=== PATIENT | male | born 1975 | race Two or more races ===

== ENCOUNTER 2020-06-18 15:33 | Outpatient (REF) | payer MEDICAID, SELFPAY ==
--- NOTE | 2020-06-18 15:53 | XR_ITS ---
EXAMINATION: XR SHOULDER, LEFT CLINICAL INFORMATION: Left shoulder pain COMPARISON: None TECHNIQUE: AP external rotation, Grashey, scapular Y, and axillary views of the left shoulder. FINDINGS: The bones and soft tissues are normal. No fracture. Glenohumeral and acromioclavicular alignment is anatomic with normal joint space. No abnormal soft tissue calcifications. XR/XR shoulder LT min 2V IMPRESSION: Normal left shoulder.
== END 2020-06-18 15:34 | disposition home or self-care (01) ==
LOC: HO.XRAY 15:33
PROVIDERS: PCP General Practice; Visit Provider Emergency Medicine
DX: M25.512 Pain in left shoulder (principal)
CPT/HCPCS: 73030

== ENCOUNTER → 2020-07-12 09:39 | Outpatient (BNVA) | payer MEDICAID, SELFPAY | PROVIDERS: PCP General Practice; Visit Provider Orthopaedic Surgery | DX: M75.42 Impingement syndrome of left shoulder (principal) | CPT/HCPCS: 99202 ==

== ENCOUNTER → 2020-08-09 10:40 | Outpatient (BNVA) | payer MEDICAID, SELFPAY | PROVIDERS: Visit Provider Orthopaedic Surgery | DX: M75.42 Impingement syndrome of left shoulder (principal) | CPT/HCPCS: 99212; J1040 ==

== ENCOUNTER 2020-08-15 14:00 | Outpatient (RCR) | payer MEDICAID, SELFPAY ==
--- NOTE | 2020-07-17 15:45 | MHC.PT.EP ---
[facility] [place] Office [place] Office [place] Office [address] Noemi Chavira [address] [facility] [phone] F: [phone] F: [phone] F: [phone] F: [phone] Physical Therapy Plan of Care Date of Evaluation: 07/17/20 Date of Surgery: Diagnosis: left shoulder pain Assessment: The patient arrived reporting left shoulder pain. He had pain with AROM, and pain with resistance. He did not seem to have any cervical etiology. Pt appears to have some secondary impingement in the GH joint. 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 Pt will need posterior and inferior cuff strengthening to improve GH tracking and proprioception. Frequency and Duration: The patient will be seen 2x/week x 4 weeks Short Term Goals: 2 weeks 1.Pt to able to demonstrate proper sitting posture with the use of a lumbar roll to decrease aggravating factors. 2.Pt to be able to demonstrate proper posture for common leisure activities such as crocheting and phone/tablet use. 3.For the patient to demonstrate proper upright sitting posture with use of the lumbar roll to improve compliance and carryover. 4 weeks - The patient to have greater than 160 degrees of flexion and abduction to show improved functional ROM. 4 weeks ? The patient to have 5/5 strength with flexion and abduction to demonstrate functional strength 4 weeks ? The patient to be able to return to all functional reaching, self care ADL's without any limitation from pain or loss of ROM. [employer] [address] [address] Goals: 4 weeks - The patient to have greater than 160 degrees of flexion and abduction to show improved functional ROM. 4 weeks ? The patient to have 5/5 strength with flexion and abduction to demonstrate functional strength 4 weeks ? The patient to be able to return to all functional reaching, self care ADL's without any limitation from pain or loss of ROM. Treatment Plan: Modalities to reduce pain, spasms and effusion. Manual therapy to restore motion and function. Therapeutic exercise to improve strength and flexibility. Neuromuscular re-education for posture and balance. Therapeutic activities to return to functional activities of daily living. Electronically signed by: Annmarie Harrell PT DPT Please sign and return to therapist. Thank you for your referral.
== END 2020-08-19 08:00 | disposition home or self-care (01) ==
LOC: HO.PT 14:00
PROVIDERS: PCP General Practice; Visit Provider Emergency Medicine
DX: M25.512 Pain in left shoulder (principal)
CPT/HCPCS: 97033; 97110; 97112; 97162; 97530

== ENCOUNTER 2021-08-13 12:28 | Day surgery (SDC) | payer MEDICAID, SELFPAY ==
[2021-08-13 12:34] VITALS: BMI 28.7
[2021-08-13 12:52] VITALS: BP 122/75; PULSE 68; RESP 17; TEMP 36.8; O2SAT 96
--- NOTE | 2021-08-13 13:29 | HO.ANESPROP2 ---
HPI - Anesthesia Eval Consult details Narrative: 46 yo male patient for Colonoscopy PMFSH Active Problems Active Problems: All Active Problems (Updated 08/12/21 @ 09:09 by Edna Foster) Rotator cuff impingement syndrome of left shoulder (Acute) Past Medical History Medical History Onychomycosis Family History Family history of problems with anesthesia: No Surgical History Surgical History No pertinent past surgical history History of Problems with Anesthesia: No Social History Social History Patient Tobacco Use Status: Never used Tobacco Are you DNR?: No Advance Directives: No Advance Directives Information Provided: Yes Current occupational status: employed 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, 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 Allergies Allergy/AdvReac Type Severity Reaction Status Date / Time aspirin AdvReac eye Verified 08/09/20 10:47 swelling, and face swelling Home Medications Medication Instructions Recorded Confirmed Last Taken Type acetaminophen 325 mg capsule 325 mg PO QID PRN 07/12/20 Unknown History naproxen 500 mg tablet 500 mg PO BID 07/12/20 Unknown History Exam Exam Date and Time: August 13, 2021 1329 Height,Weight and Vital Signs: Height 5 ft 6 in Weight 80.739 kg Last Vital Signs Temp 98.3 F 08/13/21 12:52 Pulse 68 08/13/21 12:52 Resp 17 08/13/21 12:52 BP 122/75 08/13/21 12:52 Pulse Ox 96 08/13/21 12:52 Airway Mallampati Class: III TM Dist: >3cm Neck ROM: Full Loose/Missing/Broken Teeth: No Heart: RRR Lungs: CTAB Assessment and Plan Assessment Anesthesia Assessment: Anesthesia Plan Discussed and Chart Reviewed Final Anesthetic Review Family History of Problems with Anesthesia: No History of Problems with Anesthesia: No NPO: Yes ASA Class: I Final Preanesthetic Review: No Changes in Pt Med Stat, Meds/Allgs Chart Reviewed, Consent Obtained/Reviewed and Anes Risks/Benef Reviewed Patient Risk: Low Procedure Risk: Low Assessment/Block/Sedation in SS: Assess/Block/Sedation-SS Anesthetic Plan Anesthetic Plan: MAC: Disposition: Standard PACU
[2021-08-13] MEDS: Lactated Ringers 1,000 ML 100 ML IVCONT (14:15)
--- NOTE | 2021-08-13 14:18 | MHC.SHP ---
Pre-Procedural Eval Section A Date of Service: 08/13/21 The patient is an INPATIENT: No Changes since office visit: No Cold of Flu in the past 2 weeks, No New Medical Problems, No Changes in Medication and No Patient answered all questions The History & Physical has been completed within 30 days and I have reviewed it.: Yes Section B Chief Complaint: FHX of colon cancer, screening Allergies: Allergies Allergy/AdvReac Type Severity Reaction Status Date / Time aspirin AdvReac eye Verified 08/09/20 10:47 swelling, and face swelling Plan I have reviewed the history and physical and performed a pertinent physical examination on my patient. No changes have occurred unless specified.
--- NOTE | 2021-08-13 14:52 | PM.OP ---
Brief Operative Note Date of Service: 08/13/21 Pre-op diagnosis: screeening Post-op diagnosis: same Procedure: colonoscopy Surgeon: Henok Monte Anesthesia: MAC Was an Soil Checker used for this Procedure?: No Estimated blood loss (mL): 0 Pathology: none sent Condition: stable Disposition: PACU
[2021-08-13 14:58] VITALS: BP 93/49; PULSE 75; RESP 16; TEMP 36.3; O2SAT 97
[2021-08-13 15:13] VITALS: BP 108/61; PULSE 60; RESP 18; TEMP 36.3; O2SAT 100
--- NOTE | 2021-08-13 16:16 | OP_ITS ---
SURGEON: Henok Monte MD INDICATIONS: Colon cancer screening and family history of colon cancer. PREOPERATIVE DIAGNOSIS: POSTOPERATIVE DIAGNOSIS: PROCEDURE PERFORMED: Colonoscopy to terminal ileum. ESTIMATED BLOOD LOSS: COMPLICATIONS: ANESTHESIA: ASSISTANTS: SPECIMENS: MEDICATIONS: Monitored anesthesia care. DESCRIPTION OF PROCEDURE: History and physical were performed. The risks and benefits of the procedure were explained to the patient. Informed consent was obtained. The patient was placed in the left lateral decubitus position. A digital rectal exam was performed and was found to be normal. The Olympus pediatric video colonoscope was introduced into the rectum and advanced to the cecum without difficulty. The cecum was identified by transillumination, palpation, and identification of ileocecal valve. Examination was performed. The scope was removed. He tolerated the procedure well and was transferred to recovery area in stable condition. FINDINGS: The terminal ileum was examined and appeared normal. The visualized colonic mucosa was within normal limits without evidence of masses or ulcers. No polyps were identified. The quality of the prep was good. Retroflexed examination showed small internal hemorrhoids. There was moderate sigmoid diverticulosis. IMPRESSION: Normal colonoscopy. RECOMMENDATION: 1. Follow up as needed. 2. Repeat colonoscopy is recommended in 5 years because of family history. MD GALI Jin/BHARAT / [id number]
== END 2021-08-13 16:04 | disposition home or self-care (01) ==
PROVIDERS: Visit Provider Internal Medicine Gastroenterology
PROC: 0DJD8ZZ Inspection of Lower Intestinal Tract, Via Natural or Artificial Opening Endoscopic (ICD-10-PCS; CPT 45378; principal; 2021-08-13 13:50)
DX: Z12.11 Encounter for screening for malignant neoplasm of colon (principal); Z80.0 Family history of malignant neoplasm of digestive organs; K57.30 Diverticulosis of large intestine without perforation or abscess without bleeding; K64.8 Other hemorrhoids; B35.1 Tinea unguium; Z79.1 Long term (current) use of non-steroidal anti-inflammatories (NSAID)
CPT/HCPCS: 45378

== ENCOUNTER 2021-10-02 10:06 | Outpatient (REF) | payer MEDICAID, SELFPAY ==
--- NOTE | 2021-10-02 10:10 | EMG_ITS ---
Left median and ulnar motor and sensory studies were performed. Left radial sensory study was performed and paraspinal muscles were tested with a needle. IMPRESSION: Mild to moderate left median neuropathy across carpal tunnel. MD CAMERON Bhatia/BHARAT / [id number]
== END 2021-10-02 10:07 | disposition home or self-care (01) ==
LOC: HO.NEURO 10:06
PROVIDERS: PCP General Practice; Visit Provider General Practice
DX: G56.12 Other lesions of median nerve, left upper limb (principal)
CPT/HCPCS: 95886; 95909

== ENCOUNTER 2021-10-14 14:20 | Outpatient (REF) | payer MEDICAID, SELFPAY ==
[2021-10-14 15:01] LABS: COVID-19 Test Positive (Negative)
== END 2021-10-14 14:21 | disposition home or self-care (01) ==
LOC: HO.LAB 14:20
PROVIDERS: Visit Provider Internal Medicine
DX: Z20.822 Contact with and (suspected) exposure to COVID-19 (principal)
CPT/HCPCS: 87635; C9803

== ENCOUNTER 2022-02-21 07:25 | Emergency (ER) | payer MEDICAID, SELFPAY ==
--- NOTE | ~2022-02-21 | XR_ITS ---
EXAMINATION: CR FINGER, LEFT CLINICAL INFORMATION: Hit left thumb with hammer. COMPARISON: None TECHNIQUE: Frontal view of the left hand and coned-down lateral and frontal views of the left first digit. FINDINGS: Diffuse soft tissue swelling of the left thumb is seen, most prominent along the distal phalanx. There is a small well-corticated bone fragment along the palmar surface of the first interphalangeal joint, possibly related to old avulsion injury versus small accessory ossicle. No acute fracture or dislocation. No radiopaque foreign body in the soft tissues. Bony structures otherwise unremarkable. XR/XR finger LT min 2V IMPRESSION: 1. Extensive soft tissue swelling over the first digit. 2. No acute fracture.
[2022-02-21 08:05] VITALS: BP 130/77; PULSE 60; RESP 16; TEMP 36; O2SAT 100; BMI 25.8
--- NOTE | 2022-02-21 09:37 | ED.EXTPRO ---
HPI - Extremity Problem General Chief complaint: Extremity Problem Stated complaint: l thumb inj Time Seen by Provider: 02/21/22 09:26 Source: patient Mode of arrival: ambulatory Limitations: no limitations History of Present Illness HPI Narrative: Patient presents emergency department for evaluation of left thumb pain. He states yesterday while working he struck his left thumb with a hammer. Has bruising beneath the nail bed. Fingers painful with movement. Denies any numbness or tingling. Related Data Home Medications Medication Instructions Recorded Confirmed acetaminophen 325 mg capsule 325 mg PO QID PRN 07/12/20 naproxen 500 mg tablet 500 mg PO BID 07/12/20 Previous Rx's Medication Instructions Recorded naproxen 500 mg tablet (Naprosyn) 500 mg PO BID #60 tabs 07/12/20 Allergies Allergy/AdvReac Type Severity Reaction Status Date / Time aspirin AdvReac eye Verified 08/09/20 10:47 swelling, and face swelling Review of Systems Review of Systems: Musculoskeletal: positive finger pain Yes all other systems are reviewed and are negative PMFSH Past Medical History Attestation statement: The following information was validated with the patient. 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 No acute distress.?Normal affect.? Neck: Normal inspection.? Neck supple.?? CVS: Heart sounds normal. Normal heart rate and rhythm.? Pulses normal.?? Respiratory: No respiratory distress.? Lung sounds clear to auscultation bilaterally?? Abdomen: Soft and non-tender. Skin: Skin warm and dry.? Normal skin color.? Extremities: No lower extremity edema.? left thumb with localized swelling to the distal tip, decreased flexion, nail bed intact Neuro: Moves all extremities spontaneously. Sensation intact bilaterally. no motor deficits Ambulates with normal steady gait. Course Course Course Narrative: patient is a 46-year-old male presents emergency for evaluation of crush injury. XR reveals soft tissue swelling, no acute fracture. physical exam notable for decreased flexion, to approximately 40 degrees less likely to tendon injury. There is localized swelling. discussed findings with patient. Replace and finger splint. Advised rest, ice for 10-15 minutes 3-4 times daily, acetaminophen/ ibuprofen as needed for pain. Follow-up with primary care provider as needed. Reviewed worsening signs and symptoms to return back to emergency department for. All questions were answered to patient was discharged home in stable condition. MDM - Extremity (Nontraumatic) Medical Records Attestation: I reviewed the patient's medical records. Imaging Data XR hand: Radiologist's impression: XR/XR finger LT min 2V IMPRESSION: ? 1. Extensive soft tissue swelling over the first digit. 2. No acute fracture. Discharge Plan Discharge Clinical Impression: Contusion of finger of left hand Patient Disposition: Home, Self-Care Instructions: Contusion in Adults (ED) Additional Instructions: You can take ibuprofen 200 mg, 3 tablets (600mg) every 6-8 hours as needed for pain, in addition to Tylenol 500 mg, 2 tablets (1,000mg) every 4-6 hours as needed for pain, but not to exceed 3 doses daily (3,000mg).? Return to the emergency department any new or worsening symptoms or concerns. Prescriptions: No Action naproxen [Naprosyn] 500 mg tablet 500 mg PO BID Qty: 60 2RF Interventions: ED Discharge Assessment Last Done: 02/21/22 10:10 Discharge Date/Time: 02/21/22 10:11
[2022-02-21] MEDS: NaPROXEN 500 MG TABLET PO (10:03)
== END 2022-02-21 10:11 | disposition home or self-care (01) ==
PROVIDERS: Emergency Provider Internal Medicine; PCP General Practice
DX: S60.012A Contusion of left thumb without damage to nail, initial encounter (principal); W22.8XXA Striking against or struck by other objects, initial encounter; Y93.89 Activity, other specified; Y92.9 Unspecified place or not applicable; Y99.0 Civilian activity done for income or pay
CPT/HCPCS: 29130; 73140; 99283

== ENCOUNTER → 2022-04-02 13:38 | Outpatient (BNVA) | payer MEDICAID, SELFPAY | PROVIDERS: PCP General Practice; Visit Provider Urology | DX: Q55.69 Other congenital malformation of penis (principal) | CPT/HCPCS: 99202 ==

== ENCOUNTER → 2022-05-05 12:55 | Outpatient (BNVA) | payer MEDICAID, SELFPAY | PROVIDERS: PCP General Practice; Visit Provider Orthopaedic Surgery | DX: Z01.818 Encounter for other preprocedural examination (principal); G56.02 Carpal tunnel syndrome, left upper limb | CPT/HCPCS: 99202 ==

== ENCOUNTER 2022-05-18 06:03 | Day surgery (SDC) | payer MEDICAID, SELFPAY ==
[2022-05-12 10:58] VITALS: BMI 26.6
--- NOTE | 2022-05-15 10:35 | HO.ANESPROP2 ---
Documented by User: Sultana Rushing NP 05/15/22 10:37 HPI - Anesthesia Eval Consult details Narrative: 46yo M for Penile Frenuloplasty s/p colo 08/2021 with TIVA PMFSH Active Problems Active Problems: All Active Problems (Updated 05/12/22 @ 10:54 by Renetta Cuellar RN) Rotator cuff impingement syndrome of left shoulder (Acute) Short frenulum of penis (Acute) Carpal tunnel syndrome of left wrist (Acute) Past Medical History Medical History COVID-19 vaccine series completed History of COVID-19 Onychomycosis Family History Family history of problems with anesthesia: No Surgical History Surgical History H/O colonoscopy History of Problems with Anesthesia: No Social History Social History Patient Tobacco Use Status: Never used Tobacco Are you DNR?: No Advance Directives: No Advance Directives Information Provided: Yes (brochure mailed) Advance Directives on File: No Current occupational status: employed 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, 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 Allergies Allergy/AdvReac Type Severity Reaction Status Date / Time aspirin AdvReac eye Verified 05/18/22 06:14 swelling, and face swelling Home Medications Medication Instructions Recorded Confirmed Last Taken Type acetaminophen 325 mg capsule 325 mg PO QID PRN Pain 07/12/20 05/12/22 Unknown History vitamin B complex (Vitamins B 1 tab PO DAILY 05/05/22 05/12/22 Unknown History Complex tablet) Exam Exam Date and Time: May 15, 2022 1035 Height,Weight and Vital Signs: Height 5 ft 6 in Weight 74.843 kg Assessment and Plan Assessment Anesthesia Assessment: Chart Reviewed Final Anesthetic Review Family History of Problems with Anesthesia: No History of Problems with Anesthesia: No Documented by User: Lesvia Salinas MD 05/18/22 07:46 PMFSH Past Medical History Medical History COVID-19 vaccine series completed History of COVID-19 Onychomycosis Surgical History Surgical History H/O colonoscopy Social History Social History Patient Tobacco Use Status: Never used Tobacco Are you DNR?: No Advance Directives: No Advance Directives Information Provided: Yes (brochure mailed) Advance Directives on File: No Current occupational status: employed 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, 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 Allergies Allergy/AdvReac Type Severity Reaction Status Date / Time aspirin AdvReac eye Verified 05/18/22 06:14 swelling, and face swelling Home Medications Medication Instructions Recorded Confirmed Last Taken Type acetaminophen 325 mg capsule 325 mg PO QID PRN Pain 07/12/20 05/12/22 Unknown History vitamin B complex (Vitamins B 1 tab PO DAILY 05/05/22 05/12/22 Unknown History Complex tablet) Exam Airway Mallampati Class: II TM Dist: >3cm Loose/Missing/Broken Teeth: No Heart: RRR Lungs: CTA Assessment and Plan Assessment Anesthesia Assessment: Anesthesia Plan Discussed Final Anesthetic Review NPO: Yes ASA Class: II Final Preanesthetic Review: Meds/Allgs Chart Reviewed, Consent Obtained/Reviewed and Anes Risks/Benef Reviewed Patient Risk: Low Procedure Risk: Low Anesthetic Plan Anesthetic Plan: GA Disposition: Standard PACU
[2022-05-18 06:40] VITALS: BP 119/62; PULSE 61; RESP 18; TEMP 36.3; O2SAT 96
[2022-05-18] MEDS: Lactated Ringers 1,000 ML 100 ML IVCONT (06:41)
--- NOTE | 2022-05-18 07:27 | MHC.SHP ---
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 No changes have occurred unless specified.
--- NOTE | 2022-05-18 08:01 | W.PM.OPN ---
Operative Note Operative Note Date of Service: 05/18/22 Narrative: PreOperative Diagnosis: tight penile frenulum Post Operative Diagnosis: tight penile frenulum Procedure: penile frenulectomy Surgeon: Dr Michael Mcbride Anesthesia: sedation Indications for procedure: foreshortened penile frenulum with erectile distortion Procedure: After informed consent was verified the patient was brought to the operating room and placed in a supine position. Anesthesia was administered per protocol. The patient was prepped and draped in a sterile fashion. Safety pause time-out was performed. Antibiotics being given. The frenulum was grasped. Local anesthetic was placed by the frenulum and the base of the penis. The frenulum was divided. 5.0 rapid absorbing chromic suture was then used to reapproximate skin edges The patient tolerated the procedure well, was extubated in the operating room and transferred in stable condition to the recovery area. Pathology: Drains:
[2022-05-18 08:08] VITALS: BP 92/49; PULSE 74; RESP 12; TEMP 36.6; O2SAT 93
[2022-05-18 08:13] VITALS: BP 104/53; PULSE 68; RESP 14; O2SAT 96
[2022-05-18 08:18] VITALS: BP 91/53; PULSE 66; RESP 14; O2SAT 96
[2022-05-18 08:23] VITALS: BP 106/53; PULSE 64; RESP 14; O2SAT 97
[2022-05-18 08:38] VITALS: BP 105/63; PULSE 62; RESP 14; TEMP 36.3; O2SAT 95
== END 2022-05-18 09:08 | disposition home or self-care (01) ==
PROVIDERS: PCP General Practice; Visit Provider Urology
PROC: (CPT 54164; principal; 2022-05-18 07:30)
DX: Q55.69 Other congenital malformation of penis (principal); Z79.899 Other long term (current) drug therapy; Z88.6 Allergy status to analgesic agent
CPT/HCPCS: 54164; J1100; J1956; J2250; J2405; J2795; J3010

== ENCOUNTER 2022-06-11 09:40 | Day surgery (SDC) | payer MEDICAID, SELFPAY ==
--- NOTE | 2022-06-11 09:05 | W.PM.OPN ---
Operative Note Operative Note Date of Service: 06/11/22 Narrative: Preop diagnosis: 1. left Carpal tunnel syndrome Postop diagnosis: same Procedure: 1. left Carpal tunnel release Surgeon: Yoli Haddad MD Anesthesia: local block using 1% lidocaine with epinephrine Findings: Thickened transverse carpal ligament. EBL: Less than 5 mL Specimens: None Complications: None Disposition: Brought to recovery room in stable condition Plan: Follow-up for 10-14 days for wound check and suture removal Indications: The patient is 46 years old, with left carpal tunnel syndrome that has been unresponsive to nonoperative management. The risks and benefits of operative treatment including but not limited to risk of damage to blood vessels, nerves, tendons, infection, persistent pain, persistent symptoms, or possible need for additional surgery were discussed with the patient and the patient wishes to proceed with surgery. Procedure: Once consent was obtained a local block was performed using a combination of 1% lidocaine with epinephrine. The patient was then brought back to the operating suite and placed on the operative table in supine position. A tourniquet was applied to the proximal aspect of the left upper extremity and the limb was prepped and draped in a standard surgical fashion. Once assured that we had a good block, a 2.0 cm longitudinal incision was made centered over the carpal tunnel. The incision was made through the skin to the subcutaneous tissues using a #15 blade. Dissection was made down to the level of the transverse carpal ligament with care being taken to protect the palmar cutaneous nerve. Once the transverse carpal ligament was clearly visualized, a longitudinal incision was made in the transverse carpal ligament 1st using a #15 blade, then using tenotomy scissors under direct visualization. Care was taken to look for and protect the motor branch of the median nerve when seen in this area. Once satisfied with our carpal tunnel release the wound was copiously irrigated with normal saline and hemostasis was obtained with a brief period of local pressure. The skin edges were reapproximated with some 5.0 nylon suture material and a sterile dressing was applied. The patient appears to have tolerated the procedure well and with no complications. All digits were well vascularized at the conclusion of the case.
[2022-06-11 09:53] VITALS: BP 112/71; PULSE 72; RESP 15; TEMP 36.7; O2SAT 95; BMI 26.6
--- NOTE | 2022-06-11 11:21 | MHC.SHP ---
Pre-Procedural Eval Section A Date of Service: 06/11/22 The patient is an INPATIENT: No Changes since office visit: No Cold of Flu in the past 2 weeks, No New Medical Problems, No Changes in Medication and No Patient answered all questions The History & Physical has been completed within 30 days and I have reviewed it.: Yes Section B Chief Complaint: Carpal tunnel syndrome, left upper limb Allergies: Allergies Allergy/AdvReac Type Severity Reaction Status Date / Time aspirin AdvReac eye Verified 06/11/22 10:55 swelling, and face swelling Plan I have reviewed the history and physical and performed a pertinent physical examination on my patient. No changes have occurred unless specified. Time Spent With Patient Time: Total time managing care of this patient today ____ minutes.
[2022-06-11 12:24] VITALS: BP 119/67; PULSE 65; RESP 15; O2SAT 95
== END 2022-06-11 12:21 | disposition home or self-care (01) ==
PROVIDERS: PCP General Practice; Visit Provider Orthopaedic Surgery
PROC: (CPT 64721; principal; 2022-06-11 10:50)
DX: G56.02 Carpal tunnel syndrome, left upper limb (principal); R20.0 Anesthesia of skin; R20.2 Paresthesia of skin; B35.1 Tinea unguium; Z88.8 Allergy status to other drugs, medicaments and biological substances
CPT/HCPCS: 64721

== ENCOUNTER → 2022-06-24 13:39 | Outpatient (BNVA) | payer MEDICAID, SELFPAY | PROVIDERS: PCP General Practice; Visit Provider Urology | DX: Z13.89 Encounter for screening for other disorder (principal) ==

== ENCOUNTER 2022-07-14 11:10 | Outpatient (REF) | payer MEDICAID, SELFPAY ==
--- NOTE | ~2022-07-14 | XR_ITS ---
EXAMINATION: XR SHOULDER, LEFT CLINICAL INFORMATION: Left shoulder pain. COMPARISON: Left shoulder radiographs dated 06/18/2020. TECHNIQUE: AP, scapular Y, and axillary views of the left shoulder. FINDINGS: The bones and soft tissues are normal. No fracture. Glenohumeral and acromioclavicular alignment is anatomic with normal joint space. No abnormal soft tissue calcifications. XR/XR shoulder LT min 2V IMPRESSION: Unremarkable examination.
== END 2022-07-14 11:11 | disposition home or self-care (01) ==
LOC: HO.HOSX 11:10
PROVIDERS: Visit Provider Physician Assistant
DX: M75.102 Unspecified rotator cuff tear or rupture of left shoulder, not specified as traumatic (principal)
CPT/HCPCS: 20610; 73030; 99212; J1040

== ENCOUNTER 2023-02-22 18:10 | Emergency (ER) | payer MEDICAID, SELFPAY ==
--- NOTE | ~2023-02-22 | CT_ITS ---
EXAMINATION: CT ABDOMEN AND PELVIS WITH CONTRAST CLINICAL INFORMATION: Left lower quadrant pain COMPARISON: None available. TECHNIQUE: Multidetector volumetric images were obtained from the superior aspect of the liver through the pubic symphysis following administration 85 mL of Omnipaque 350 intravenous contrast. Sagittal and coronal reformatted images were obtained on the technologist's workstation. Oral contrast: No This CT examination was performed using dose optimization techniques as appropriate, variously including the following: *Automated exposure control *Adjustment of mA and/or kV according to patient size (this includes techniques or standardized protocols for targeted exams where dose is matched to indication/reason for exam; i.e. extremities or head) *Use of iterative reconstruction technique DLP: 44 mGy-cm FINDINGS: LUNG BASES: The visualized lung bases are unremarkable. LIVER, GALLBLADDER, AND BILIARY TREE: The liver is normal in size, shape, and attenuation. No focal hepatic lesion or biliary ductal dilatation is present. The gallbladder is unremarkable with no evidence of radiopaque gallstones, gallbladder wall thickening, or obvious pericholecystic inflammatory changes. PANCREAS: Unremarkable. SPLEEN: Unremarkable. ADRENAL GLANDS: Unremarkable. KIDNEYS AND URETERS: The kidneys are normal in size, shape, and attenuation. There is a punctate 2 mm nonobstructing mid right renal calculus. No hydronephrosis, hydroureter, or additional calculi seen. No perinephric stranding. Multiple bilateral benign Bosniak class I renal cysts are noted, the largest measuring 5.3 cm on the left which require no additional imaging or follow-up. No solid renal masses are seen. BLADDER: Unremarkable. GASTROINTESTINAL TRACT: There are moderately extensive colonic diverticula present in the descending colon and distal sigmoid. There is one area in the mid descending colon where there are some very subtle streaky changes in the pericolonic area which could represent some very early diverticulitis. The small and large bowel are otherwise unremarkable. The appendix is unremarkable. ABDOMINAL WALL: No significant hernia is appreciated. LYMPH NODES: Normal. VASCULAR: Unremarkable. PELVIC VISCERA: There is mild BPH. OSSEOUS STRUCTURES: Unremarkable. CT/CT abdomen pelvis w IV con IMPRESSION: 1. Extensive colonic diverticulosis with one area in the mid descending colon where there are some very subtle streaky changes in the pericolonic area which could represent some very early diverticulitis. 2. Other incidental findings as described above including a punctate nonobstructing right renal calculus, bilateral benign Bosniak class I renal cysts which require no additional imaging or follow-up and mild BPH. Fleischner guidelines were followed.
--- NOTE | 2023-02-22 19:06 | ED_ITS ---
HPI - General Adult General Chief complaint: Abdominal Pain Stated complaint: stomach ache & fever Time Seen by Provider: 02/22/23 22:19 Source: patient Mode of arrival: ambulatory Limitations: no limitations History of Present Illness HPI narrative: 47 yo [place] speaking male presenting to the ER for evaluation of left sided abdominal pain along with N/V for the last 2-3 weeks. Seen at an Urgent Care when it started and was prescribed Zofran with improvement in vomiting. +dysuria as well. Moving bowels normally. Unknown if fevers at home. Pain is vague more than lower quadrant no hematuria no blood in the stool Related Data Home Medications Medication Instructions Recorded Confirmed acetaminophen 325 mg capsule 325 mg PO QID PRN Pain 07/12/20 05/12/22 vitamin B complex (Vitamins B 1 tab PO DAILY 05/05/22 05/12/22 Complex tablet) Previous Rx's Medication Instructions Recorded betamethasone dipropionate 0.05 % 1 appl topical BID 4 weeks #15 04/02/22 topical ointment grams ciprofloxacin HCl 500 mg tablet 500 mg PO BID #20 tabs 02/23/23 (Cipro) metronidazole 500 mg tablet 500 mg PO BID 10 days #20 tabs 02/23/23 tramadol 50 mg tablet 50 mg PO Q6H PRN pain #20 tabs 02/23/23 Allergies Allergy/AdvReac Type Severity Reaction Status Date / Time aspirin AdvReac eye Verified 07/14/22 13:04 swelling, and face swelling Review of Systems 2 Review of Systems: Yes all other systems are reviewed and are negative PMFSH Past Medical History Medical History COVID-19 vaccine series completed History of COVID-19 Onychomycosis Surgical History H/O colonoscopy Social History Social History Patient Tobacco Use Status: Never used Tobacco Advance Directives: No Advance Directives Information Provided: No Current occupational status: employed 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 Oriented X3. No acute distress. ENT: Pharynx normal. Oral Mucosa moist no pallor or icterus Neck: Normal inspection. Neck supple. CVS: Normal heart rate and rhythm. Pulses normal. Respiratory: No respiratory distress. Equal air entry bilateral, no wheezing/rales/rhonchi Abdomen: Soft Coumadin tenderness left lower quadrant with guarding no rebound tenderness Bowel sounds are present, no mass palpable, no CVA tenderness Skin: Skin warm and dry. Normal skin color. Normal skin turgor. Extremities: No lower extremity edema. No calf tenderness Neuro: Oriented X 3. No motor deficit. Course Course Course Narrative: RME - 47 yo Canadian speaking male presenting to the ER for evaluation of left sided abdominal pain along with N/V for the last 2-3 weeks. Seen at an Urgent Care when it started and was prescribed Zofran with improvement in vomiting. +dysuria as well. Moving bowels normally. Unknown if fevers at home. Plan: lab workup, viral swab and UA Medications Administered Discontinued Medications Generic Name Dose Route Start Last Admin Trade Name Freq PRN Reason Stop Dose Admin Sodium Chloride 1,000 mls @ 999 mls/hr 02/22/23 22:00 02/22/23 23:22 Ns IV 02/22/23 23:00 Infused .Q1H1M SUZANNA Infusion Iohexol 85 ml 02/22/23 23:23 02/22/23 23:24 Iohexol 350 Mg/Ml 100 Ml Infus..Btl IV 02/22/23 23:24 85 ml ONCE ONE Administration Levofloxacin 500 mg 02/23/23 00:10 02/23/23 00:25 Levofloxacin 500 Mg Tablet PO 02/23/23 00:11 500 mg ONCE ONE Administration Metronidazole 500 mg 02/23/23 00:10 02/23/23 00:25 Metronidazole 500 Mg Tablet PO 02/23/23 00:11 500 mg ONCE ONE Administration Ondansetron HCl 4 mg 02/22/23 21:46 02/22/23 22:24 Ondansetron Hcl 4 Mg/2 Ml Vial IVPUSH 02/22/23 21:47 4 mg ONCE ONE Administration Medical Decision Making Medical Decision Making [facility] Narrative: Patient's left lower quadrant tenderness normal WBC count CT scan showed mild diverticulitis will discharge patient home on Flagyl and Cipro Differential Diagnosis Differential Diagnoses: The differential diagnosis associated with the presentation includes Constipation/diverticulitis/kidney stone/UTI Lab Data [facility] Lab Attestation statement: I reviewed the patient's lab results. 02/22/23 22:27 02/22/23 22:22 Labs: Lab Results 02/22/23 02/22/23 02/22/23 Range/Units 19:17 22:22 22:27 WBC 7.3 7.4 (4.8-10.8) X10*3/uL RBC 4.75 4.91 (4.60-5.80) X10*6/uL Hgb 14.5 14.8 (14.0-18.0) g/dl Hct 43.9 45.2 (42.0-52.0) % MCV 92.4 92.1 (80.0-98.0) fL MCH 30.5 30.1 (27.0-33.0) pg MCHC 33.0 32.7 (31.0-36.0) g/dl RDW 13.8 13.9 (11.0-16.0) % Plt Count 276 275 (160-400) X10*3/uL MPV 9.7 9.9 (9.4-12.4) fL Immature Gran % (Auto) 0.1 0.3 (0.0-0.4) % Neut % (Auto) 38.6 L 42.9 L (45-73) % Lymph % (Auto) 38.2 33.6 (20-40) % [place] % (Auto) 8.1 8.7 (2-11) % Eos % (Auto) 14.9 H 14.2 H (0-4) % Baso % (Auto) 0.1 0.3 (0-2) % Lymph # (Auto) 2.8 2.5 (1.2-4.9) X10*3/uL [place] # (Auto) 0.6 0.6 (0.1-1.2) X10*3/uL Eos # (Auto) 1.1 H 1.1 H (0.0-0.4) X10*3/uL Baso # (Auto) 0.0 0.0 (0.0-0.2) X10*3/uL Abs Immat Gran (auto) 0.01 0.02 (0.00-0.03) X10*3/uL Absolute Neuts (auto) 2.8 3.2 (2.0-8.3) x10*3/uL Absolute Nucleated RBC 0.000 0.000 (0.0-0.012) X10*3/uL Nucleated RBC % (auto) 0.0 0.0 (0.0-0.2) /100WBC Sodium 138 139 (135-145) mmol/L Potassium 4.8 4.2 (3.3-5.1) mmol/L Chloride 106 103 (96-108) mmol/L Carbon Dioxide 28 29 (22-29) mmol/L Anion Gap 9 L 11 L (12-20) BUN 12 12 (9-16) mg/dL Creatinine 1.00 0.94 (0.5-1.4) mg/dL Estim Creat Clear Calc 90.3 96.0 Estimated GFR > 60 > 60 Random Glucose 98 93 (60-115) mg/dL Calcium 9.4 9.2 (8.4-10.2) mg/dL Magnesium 2.4 (1.6-2.6) mg/dL Total Bilirubin 0.2 0.2 (0.0-1.0) mg/dL Direct Bilirubin < 0.2 < 0.2 (0.0-0.5) mg/dL AST 17 18 (5-37) U/L ALT 11 13 (0-40) U/L Alkaline Phosphatase 65 65 (39-117) U/L Total Protein 7.0 7.4 (6.5-8.0) g/dL Albumin 3.9 4.0 (3.5-5.0) g/dL Lipase 22 20 (8-78) U/L Urine Color Yellow Urine Appearance Turbid Urine pH 7.5 (5.0-9.0) Ur Specific [place] 1.020 (1.005-1.025) Urine Protein Negative (Neg-Trace) mg/dL Urine Glucose (UA) Negative (Negative) mg/dL Urine Ketones Negative (Negative) mg/dL Urine Blood Negative (Negative) Urine Nitrite Negative (Negative) Ur Leukocyte Esterase Negative (Negative) Influenza Type A (PCR) NEGATIVE (Negative) Influenza Type B (PCR) NEGATIVE (Negative) RSV RNA Qual (PCR) NEGATIVE (Negative) SARS-CoV-2 RNA (RT-PCR) NEGATIVE (Negative) Radiology Impression Discussion of test interpretation with radiology: I have reviewed the radiologist's reading. Discharge Plan Discharge Clinical Impression: Diverticulitis Patient Disposition: Home, Self-Care Instructions: Diverticulitis (ED) Additional Instructions: Clear liquids advance as tolerated Medication as prescribed for diverticulitis Pain medication as prescribed Report to ER if worsening of the pain/fever Prescriptions: New ciprofloxacin HCl [Cipro] 500 mg tablet 500 mg PO BID Qty: 20 0RF metronidazole 500 mg tablet 500 mg PO BID 10 Days Qty: 20 0RF tramadol 50 mg tablet 50 mg PO Q6H PRN (Reason: pain) Qty: 20 0RF No Action acetaminophen 325 mg capsule 325 mg PO QID PRN (Reason: Pain) betamethasone dipropionate 0.05 % ointment 1 appl topical BID 28 Days Qty: 15 0RF Rx Instructions: Thin coat 2 times per day vitamin B complex [Vitamins B Complex] Tablet 1 tab PO DAILY
[2023-02-22 19:07] VITALS: BP 114/79; PULSE 51; RESP 16; TEMP 36.6; O2SAT 98; BMI 28.8
[2023-02-22 19:22] LABS: MANUAL DIFF FLAG NO
[2023-02-22 19:25] LABS: Basophils Percent Auto 0.1 % (0-2); Eosinophils Absolute Auto 1.1 X10*3/uL (0.0-0.4); Eosinophils Percent Auto 14.9 % (0-4); Hematocrit 43.9 % (42.0-52.0); Hemoglobin 14.5 g/dl (14.0-18.0); Imm Gran Abs Auto 0.01 X10*3/uL (0.00-0.03); Imm Gran Pct Auto 0.1 % (0.0-0.4); Lymphocytes Absolute Auto 2.8 X10*3/uL (1.2-4.9); Lymphocytes Percent Auto 38.2 % (20-40); Mean Corpuscular Hemoglobin 30.5 pg (27.0-33.0); Mean Corpuscular Volume 92.4 fL (80.0-98.0); Mean Platelet Volume 9.7 fL (9.4-12.4); Monocytes Absolute Auto 0.6 X10*3/uL (0.1-1.2); Monocytes Percent Auto 8.1 % (2-11); Neutrophils Absolute Auto 2.8 x10*3/uL (2.0-8.3); Neutrophils Percent Auto 38.6 % (45-73); Platelet Count 276 X10*3/uL (160-400); Red Blood Count 4.75 X10*6/uL (4.60-5.80); Red Cell Distribution Width 13.8 % (11.0-16.0); White Blood Count 7.3 X10*3/uL (4.8-10.8)
[2023-02-22 19:40] LABS: Alanine Aminotransferase 11 U/L (0-40); Albumin Level 3.9 g/dL (3.5-5.0); Alkaline Phosphatase 65 U/L (39-117); Anion Gap 9 (12-20); Aspartate Amino Transferase 17 U/L (5-37); Bilirubin Direct < 0.2 mg/dL (0.0-0.5); Bilirubin Total 0.2 mg/dL (0.0-1.0); Blood Urea Nitrogen 12 mg/dL (9-16); Calcium 9.4 mg/dL (8.4-10.2); Carbon Dioxide 28 mmol/L (22-29); Chloride 106 mmol/L (96-108); Creatinine Clr Calc Pharmacy 90.3; Estimated Glomerular Filt Rate > 60; Glucose Random 98 mg/dL (60-115); Lipase 22 U/L (8-78); Magnesium 2.4 mg/dL (1.6-2.6); Potassium 4.8 mmol/L (3.3-5.1); Sodium 138 mmol/L (135-145)
[2023-02-22 20:13] LABS: Influenza A PCR NEGATIVE (Negative); Influenza B PCR NEGATIVE (Negative); Resp Syncy Virus RNA Qual PCR NEGATIVE (Negative); SARS COV2 PCR INHOUSE NEGATIVE (Negative)
[2023-02-22 21:04] VITALS: BP 152/86; PULSE 44; O2SAT 98
[2023-02-22] MEDS: 0.9 % Sodium Chloride 1,000 ML 999 ML IV (22:24)
[2023-02-22] MEDS: ondansetron HCL 4 MG/2 ML VIAL IVPUSH (22:24)
[2023-02-22 22:32] LABS: MANUAL DIFF FLAG NO
[2023-02-22 22:34] LABS: Basophils Percent Auto 0.3 % (0-2); Eosinophils Absolute Auto 1.1 X10*3/uL (0.0-0.4); Eosinophils Percent Auto 14.2 % (0-4); Hematocrit 45.2 % (42.0-52.0); Hemoglobin 14.8 g/dl (14.0-18.0); Imm Gran Abs Auto 0.02 X10*3/uL (0.00-0.03); Imm Gran Pct Auto 0.3 % (0.0-0.4); Lymphocytes Absolute Auto 2.5 X10*3/uL (1.2-4.9); Lymphocytes Percent Auto 33.6 % (20-40); Mean Corpuscular HGB Conc 32.7 g/dl (31.0-36.0); Mean Corpuscular Hemoglobin 30.1 pg (27.0-33.0); Mean Corpuscular Volume 92.1 fL (80.0-98.0); Mean Platelet Volume 9.9 fL (9.4-12.4); Monocytes Absolute Auto 0.6 X10*3/uL (0.1-1.2); Monocytes Percent Auto 8.7 % (2-11); Neutrophils Absolute Auto 3.2 x10*3/uL (2.0-8.3); Neutrophils Percent Auto 42.9 % (45-73); Platelet Count 275 X10*3/uL (160-400); Red Blood Count 4.91 X10*6/uL (4.60-5.80); Red Cell Distribution Width 13.9 % (11.0-16.0); White Blood Count 7.4 X10*3/uL (4.8-10.8)
[2023-02-22 22:35] LABS: Appearance Urine Turbid; Color Urine Yellow; Glucose Urine UA Negative (Negative); Leukocyte Esterase Urine Negative (Negative); Nitrite Urine Negative (Negative); PH 7.5 (5.0-9.0); Urine Blood Negative (Negative); Urine Ketones Negative (Negative); Urine Protein Negative (Neg-Trace)
[2023-02-22 22:50] LABS: Alanine Aminotransferase 13 U/L (0-40); Alkaline Phosphatase 65 U/L (39-117); Anion Gap 11 (12-20); Aspartate Amino Transferase 18 U/L (5-37); Bilirubin Direct < 0.2 mg/dL (0.0-0.5); Bilirubin Total 0.2 mg/dL (0.0-1.0); Blood Urea Nitrogen 12 mg/dL (9-16); Calcium 9.2 mg/dL (8.4-10.2); Carbon Dioxide 29 mmol/L (22-29); Chloride 103 mmol/L (96-108); Estimated Glomerular Filt Rate > 60; Glucose Random 93 mg/dL (60-115); Lipase 20 U/L (8-78); Potassium 4.2 mmol/L (3.3-5.1); Sodium 139 mmol/L (135-145); Total Protein 7.4 g/dL (6.5-8.0)
[2023-02-22] MEDS: iohexoL 350 MG/ML 100 ML INFUS..BTL 85 ML IV (23:24)
[2023-02-23] MEDS: metroNIDAZOLE 500 MG TABLET PO (00:25)
[2023-02-23] MEDS: levoFLOXacin 500 MG TABLET PO (00:25)
[2023-02-23 00:30] VITALS: BP 120/64; PULSE 44; RESP 15; TEMP 36.6; O2SAT 98
[2023-02-23] MEDS: traMADoL HCL 50 MG TABLET PO (00:52)
== END 2023-02-23 00:56 | disposition home or self-care (01) ==
PROVIDERS: Physician Assistant; Emergency Provider Internal Medicine; PCP General Practice
DX: K57.32 Diverticulitis of large intestine without perforation or abscess without bleeding (principal); R11.2 Nausea with vomiting, unspecified; Z20.822 Contact with and (suspected) exposure to COVID-19; Z20.828 Contact with and (suspected) exposure to other viral communicable diseases; Z79.899 Other long term (current) drug therapy
CPT/HCPCS: 0241U; 36415; 74177; 80048; 80076; 81003; 83690; 83735; 85025; 96361; 96374; 99284; 99285; J2405; Q9967

== ENCOUNTER 2023-03-18 13:43 | Emergency (ER) | payer MEDICAID, SELFPAY ==
--- NOTE | ~2023-03-18 | CT_ITS ---
EXAMINATION: CT ABDOMEN AND PELVIS WITH CONTRAST CLINICAL INFORMATION: Upper abdominal pain with 12 pound weight loss and vomiting. COMPARISON: CT abdomen and pelvis 02/22/2023. TECHNIQUE: Multidetector volumetric images were obtained from the superior aspect of the liver through the pubic symphysis following administration 85 mL of Omnipaque 350 intravenous contrast. Sagittal and coronal reformatted images were obtained on the technologist's workstation. Oral contrast: No This CT examination was performed using dose optimization techniques as appropriate, variously including the following: *Automated exposure control *Adjustment of mA and/or kV according to patient size (this includes techniques or standardized protocols for targeted exams where dose is matched to indication/reason for exam; i.e. extremities or head) *Use of iterative reconstruction technique DLP: 516 mGy-cm FINDINGS: LUNG BASES: The lung bases are clear. LIVER, GALLBLADDER, AND BILIARY TREE: The liver is normal in size, shape, and attenuation. There are punctate calcifications in the right hepatic lobe. No focal hepatic lesion or biliary ductal dilatation is present. The gallbladder is unremarkable with no evidence of radiopaque gallstones, gallbladder wall thickening, or obvious pericholecystic inflammatory changes. PANCREAS: Unremarkable. SPLEEN: Unremarkable. ADRENAL GLANDS: Unremarkable. KIDNEYS AND URETERS: The kidneys are normal in size, shape, and attenuation. No hydronephrosis, hydroureter, or calculi seen. No perinephric stranding. There are bilateral renal cysts. BLADDER: Unremarkable. GASTROINTESTINAL TRACT: There is moderate stool, diverticuli and gas seen throughout the colon. There is mild nonspecific mural thickening involving segments of descending colon with mild pericolic fat stranding. The small bowel loops are normal caliber. Appendix is normal caliber. ABDOMINAL WALL: There is a small umbilical hernia containing fat. LYMPH NODES: Normal. VASCULAR: Unremarkable. PELVIC VISCERA: The prostate gland is normal size. No abnormal pelvic lymph nodes. No inguinal hernia seen. OSSEOUS STRUCTURES: Unremarkable. CT/CT abdomen pelvis w IV con IMPRESSION: Diffuse colonic diverticulosis segments of mural thickening involving the distal colon with mild pericolic fat stranding suggestive of early diverticulitis. Left renal cysts. Fleischner guidelines were followed.
[2023-03-18 14:07] VITALS: BP 119/80; PULSE 60; RESP 19; TEMP 36.6; O2SAT 99; BMI 26.5
--- NOTE | 2023-03-18 14:08 | ED.GENADULT ---
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 His PCP switched him to augmentin. He comes back due to persistent upper abdominal pain n/v inability to eat solids and 12 lb weight loss over 45 days. no fevers. MD complaint: abdominal pain/nv Onset (ago): day(s) (45 days ) Location: abdomen Severity: moderate Quality: aching and constant Pain Consistency: constant Relieving factors: none Exacerbating factors: eating Associated symptoms: loss of appetite, malaise and nausea/vomiting Treatments prior to arrival: none Related Data Home Medications Medication Instructions Recorded Confirmed acetaminophen 325 mg capsule 325 mg PO QID PRN Pain 07/12/20 05/12/22 vitamin B complex (Vitamins B 1 tab PO DAILY 05/05/22 05/12/22 Complex tablet) Previous Rx's Medication Instructions Recorded betamethasone dipropionate 0.05 % 1 appl topical BID 4 weeks #15 04/02/22 topical ointment grams ciprofloxacin HCl 500 mg tablet 500 mg PO BID #20 tabs 02/23/23 (Cipro) metronidazole 500 mg tablet 500 mg PO BID 10 days #20 tabs 02/23/23 tramadol 50 mg tablet 50 mg PO Q6H PRN pain #20 tabs 02/23/23 omeprazole 20 mg capsule,delayed 20 mg PO BID 2 weeks #28 caps 03/19/23 release ondansetron 4 mg disintegrating 4 mg PO Q8H PRN nausea and 03/19/23 tablet vomiting #20 tabs sucralfate 100 mg/mL oral 10 ml PO BID 7 days #140 mL 03/19/23 suspension Allergies Allergy/AdvReac Type Severity Reaction Status Date / Time aspirin AdvReac eye Verified 03/18/23 14:07 swelling, and face swelling Review of Systems Review of Systems: Constitutional : pos Weight loss, No Fever, No Chills Cardiovascular : No Chest Pain, No SOB, NoEdema Respiratory : No Cough, No Sputum, No Wheezing Gastrointestinal : Positive Nausea, Positive Vomiting, no Diarrhea, positive abdominal Pain, No Hematochezia, No Melena Genitourinary : No Dysuria, No Urinary Frequency, No Hematuria, No Urgency Musculoskeletal : No joint pain, No Myalgias, No Joint Swelling Skin : No Skin Lesions, No rash Neuro : No Weakness, No Numbness, No Dizziness, No Headache Psych : No Anxiety/Panic, No Depression All other systems reviewed and are negative. [facility] Past Medical History Attestation statement: The following information was validated with the patient. 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 Oriented X3. No acute distress. Eyes: Pupils equal, round and reactive to light. ENT: Pharynx normal. Neck: Normal inspection. Neck supple. CVS: Normal heart rate and rhythm. Pulses normal. Respiratory: No respiratory distress. Breath sounds normal. Abdomen: Soft and mild ttp in epigastric area no distention Skin: Skin warm and dry. Normal skin color. Normal skin turgor. Extremities: No lower extremity edema. No calf ttp Neuro: Oriented X 3. No motor deficit. No sensory deficit. Course Course Course Narrative: RME- 47 year old male presents for evaluation of abdominal pain, nausea and diarrhea. He was seen here on 02/22/23 and diagnosed with diverticulitis. He completed his treatment but reports that his symptoms are worse. Plan for labs. Reevaluation(s) Reevaluation #1: tolerating PO no vomiting. liquids and solids doubt acute diverticulitis will hold off antibiotics not toxic it is made worse with eating not consistent with diverticulitis Medications Administered Discontinued Medications Generic Name Dose Route Start Last Admin Trade Name Brantq PRN Reason Stop Dose Admin Sodium Chloride 1,000 mls @ 999 mls/hr 03/18/23 20:30 03/18/23 21:53 Ns IV 03/18/23 21:30 Infused .Q1H1M SUZANNA Infusion Iohexol 100 ml 03/18/23 20:58 03/18/23 20:58 Iohexol 350 Mg/Ml 100 Ml Infus..Btl IV 03/18/23 20:59 85 ml ONCE ONE Administration Morphine Sulfate 4 mg 03/18/23 20:23 03/18/23 20:46 Morphine Sulfate 4 Mg/Ml Cartridge IVPUSH 03/18/23 20:24 4 mg ONCE ONE Administration Protocol Ondansetron HCl 4 mg 03/18/23 20:23 03/18/23 20:46 Ondansetron Hcl 4 Mg/2 Ml Vial IVPUSH 03/18/23 20:24 4 mg ONCE ONE Administration Medical Decision Making Medical Decision Making [facility] Narrative: 47 yo male with PMH of diverticulitis here with c/o upper abdominal pain and 12lbs weight loss and worsening pain. At this time will need labs, IVF, IV zofran and morphine CT scan ordered for mass/lesions/pancreatitis. Differential Diagnosis Differential Diagnoses: The differential diagnosis associated with the presentation includes gastritis, h pylori, PUD, pancreatitis, mass Admission/Observation Consideration of admission/observation: Escalation of care including admission/observation considered tolerating PO, labs and CT scan normal - his CT scan is unchanged and it is pain when he is eating this seems stomach not diverticulitis has been on antibiotics x 2 I am going to hold and refer to GI Lab Data [facility] Lab Attestation statement: I reviewed the patient's lab results. 03/18/23 14:59 03/18/23 14:59 Labs: Lab Results 03/18/23 03/18/23 Range/Units 14:59 20:30 WBC 6.2 (4.8-10.8) X10*3/uL RBC 4.99 (4.60-5.80) X10*6/uL Hgb 15.1 (14.0-18.0) g/dl Hct 45.4 (42.0-52.0) % MCV 91.0 (80.0-98.0) fL MCH 30.3 (27.0-33.0) pg MCHC 33.3 (31.0-36.0) g/dl RDW 14.2 (11.0-16.0) % Plt Count 247 (160-400) X10*3/uL MPV 10.0 (9.4-12.4) fL Immature Gran % (Auto) 0.2 (0.0-0.4) % Neut % (Auto) 37.9 L (45-73) % Lymph % (Auto) 37.4 (20-40) % [place] % (Auto) 9.8 (2-11) % Eos % (Auto) 14.4 H (0-4) % Baso % (Auto) 0.3 (0-2) % Lymph # (Auto) 2.3 (1.2-4.9) X10*3/uL [place] # (Auto) 0.6 (0.1-1.2) X10*3/uL Eos # (Auto) 0.9 H (0.0-0.4) X10*3/uL Baso # (Auto) 0.0 (0.0-0.2) X10*3/uL Abs Immat Gran (auto) 0.01 (0.00-0.03) X10*3/uL Absolute Neuts (auto) 2.4 (2.0-8.3) x10*3/uL Absolute Nucleated RBC 0.000 (0.0-0.012) X10*3/uL Nucleated RBC % (auto) 0.0 (0.0-0.2) /100WBC Sodium 138 (135-145) mmol/L Potassium 4.7 (3.3-5.1) mmol/L Chloride 102 (96-108) mmol/L Carbon Dioxide 28 (22-29) mmol/L Anion Gap 13 (12-20) BUN 9 (9-16) mg/dL Creatinine 0.89 (0.5-1.4) mg/dL Estim Creat Clear Calc 91.5 Estimated GFR > 60 Random Glucose 99 (60-115) mg/dL Calcium 9.9 D (8.4-10.2) mg/dL Total Bilirubin 0.3 (0.0-1.0) mg/dL AST 18 (5-37) U/L ALT 12 (0-40) U/L Alkaline Phosphatase 70 (39-117) U/L Total Protein 7.1 (6.5-8.0) g/dL Albumin 4.0 (3.5-5.0) g/dL Lipase 16 (8-78) U/L COVID-19 (JOHANN) Negative (Negative) COVID-19 Clin Com See Note Independent Interpretation I performed an independent interpretation of an: CT Scan (unchanged CT scan ) Radiology Impression Discussion of test interpretation with radiology: I have reviewed the radiologist's reading. External Record Review External record reviewed: Inpatient record and Office record Prescription Management I considered prescription management with: Other Discharge Plan Discharge Clinical Impression: Abdominal pain Qualifiers: Abdominal location: epigastric Qualified Code(s): R10.13 - Epigastric pain Gastritis Qualifiers: Gastritis type: unspecified gastritis Chronicity: acute Gastritis bleeding: without bleeding Qualified Code(s): K29.00 - Acute gastritis without bleeding Patient Disposition: Home, Self-Care Instructions: Gastritis (ED), Diet for Stomach Ulcers and Gastritis (ED), Abdominal Pain (ED) Additional Instructions: avoid spicy greasy heavy foods tylenol is okay but NSAIDs like motrin, ibuprofen, aspirin, aleve are not. stay upright after eating meals for 1 hour return for worsening pain, vomiting, fevers, inability to eat or drink stay hydrated and advance diet slowly over next 48 hours. please call to follow up with GI doctor. Prescriptions: New omeprazole 20 mg capsule,delayed release(DR/EC) 20 mg PO BID 14 Days Qty: 28 0RF sucralfate 100 mg/mL suspension 10 ml PO BID 7 Days Qty: 140 0RF ondansetron 4 mg tablet,disintegrating 4 mg PO Q8H PRN (Reason: nausea and vomiting) Qty: 20 0RF No Action ciprofloxacin HCl [Cipro] 500 mg tablet 500 mg PO BID Qty: 20 0RF metronidazole 500 mg tablet 500 mg PO BID 10 Days Qty: 20 0RF tramadol 50 mg tablet 50 mg PO Q6H PRN (Reason: pain) Qty: 20 0RF acetaminophen 325 mg capsule 325 mg PO QID PRN (Reason: Pain) betamethasone dipropionate 0.05 % ointment 1 appl topical BID 28 Days Qty: 15 0RF Rx Instructions: Thin coat 2 times per day vitamin B complex [Vitamins B Complex] Tablet 1 tab PO DAILY Referrals: Henok Monte MD [Physician] - (dashawn para programar gurmeet britta) Print Language: Hebrew
[2023-03-18 15:04] LABS: MANUAL DIFF FLAG NO
[2023-03-18 15:21] LABS: Basophils Percent Auto 0.3 % (0-2); Eosinophils Absolute Auto 0.9 X10*3/uL (0.0-0.4); Eosinophils Percent Auto 14.4 % (0-4); Hematocrit 45.4 % (42.0-52.0); Hemoglobin 15.1 g/dl (14.0-18.0); Imm Gran Abs Auto 0.01 X10*3/uL (0.00-0.03); Imm Gran Pct Auto 0.2 % (0.0-0.4); Lymphocytes Absolute Auto 2.3 X10*3/uL (1.2-4.9); Lymphocytes Percent Auto 37.4 % (20-40); Mean Corpuscular HGB Conc 33.3 g/dl (31.0-36.0); Mean Corpuscular Hemoglobin 30.3 pg (27.0-33.0); Monocytes Absolute Auto 0.6 X10*3/uL (0.1-1.2); Monocytes Percent Auto 9.8 % (2-11); Neutrophils Absolute Auto 2.4 x10*3/uL (2.0-8.3); Neutrophils Percent Auto 37.9 % (45-73); Platelet Count 247 X10*3/uL (160-400); Red Blood Count 4.99 X10*6/uL (4.60-5.80); Red Cell Distribution Width 14.2 % (11.0-16.0); White Blood Count 6.2 X10*3/uL (4.8-10.8)
[2023-03-18 15:32] LABS: Alanine Aminotransferase 12 U/L (0-40); Alkaline Phosphatase 70 U/L (39-117); Anion Gap 13 (12-20); Aspartate Amino Transferase 18 U/L (5-37); Bilirubin Total 0.3 mg/dL (0.0-1.0); Blood Urea Nitrogen 9 mg/dL (9-16); Calcium 9.9 mg/dL (8.4-10.2); Carbon Dioxide 28 mmol/L (22-29); Chloride 102 mmol/L (96-108); Creatinine Clr Calc Pharmacy 91.5; Estimated Glomerular Filt Rate > 60; Glucose Random 99 mg/dL (60-115); Lipase 16 U/L (8-78); Potassium 4.7 mmol/L (3.3-5.1); Sodium 138 mmol/L (135-145); Total Protein 7.1 g/dL (6.5-8.0)
[2023-03-18 20:19] VITALS: BP 153/80; PULSE 49; RESP 17; TEMP 36.5; O2SAT 99
[2023-03-18 20:46] VITALS: RESP 18
[2023-03-18 20:46] LABS: COVID-19 Test Negative (Negative); IDNOW Serial# BCCEAD1C
[2023-03-18] MEDS: Morphine Sulfate 4 MG/ML CARTRIDGE IVPUSH (20:46)
[2023-03-18] MEDS: ondansetron HCL 4 MG/2 ML VIAL IVPUSH (20:46)
[2023-03-18] MEDS: 0.9 % Sodium Chloride 1,000 ML 999 ML IV (20:46)
[2023-03-18] MEDS: iohexoL 350 MG/ML 100 ML INFUS..BTL IV (20:58)
[2023-03-18 22:34] VITALS: BP 132/79; PULSE 43; RESP 16; TEMP 36.5; O2SAT 99
--- NOTE | 2023-03-18 23:45 | PC.NURSE ---
Pt given crackers for PO challenge
[2023-03-19 00:50] VITALS: BP 137/71; PULSE 56; RESP 18; TEMP 36.6; O2SAT 99
== END 2023-03-19 00:51 | disposition home or self-care (01) ==
PROVIDERS: Physician Assistant; Emergency Provider Emergency Medicine; PCP General Practice
DX: R10.13 Epigastric pain (principal); K29.00 Acute gastritis without bleeding; R11.2 Nausea with vomiting, unspecified; Z11.52 Encounter for screening for COVID-19
CPT/HCPCS: 36415; 74177; 80053; 83690; 85025; 87635; 96361; 96374; 96375; 99284; J2270; J2405; Q9967

== ENCOUNTER 2023-04-02 06:43 | Day surgery (SDC) | payer MEDICAID, SELFPAY ==
--- NOTE | 2023-03-31 13:56 | HO.ANESPROP2 ---
Documented by User: Sultana Rushing NP 03/31/23 13:57 HPI - Anesthesia Eval Consult details Narrative: 47yo M for Upper Endoscopy PMFSH Active Problems Active Problems: All Active Problems (Updated 03/20/23 @ 00:01 by Desi Long) Painful arc syndrome of left shoulder (Acute) Rotator cuff impingement syndrome of left shoulder (Acute) Short frenulum of penis (Acute) Carpal tunnel syndrome of left wrist (Acute) Past Medical History Medical History COVID-19 vaccine series completed History of COVID-19 Onychomycosis Family History Family history of problems with anesthesia: No Surgical History Surgical History History of carpal tunnel release H/O colonoscopy History of Problems with Anesthesia: No Social History Social History Patient Tobacco Use Status: Never used Tobacco Advance Directives: No Advance Directives Information Provided: Yes Nutrition Risks: No Nutritional Risk Current occupational status: employed 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, 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 Allergies Allergy/AdvReac Type Severity Reaction Status Date / Time aspirin AdvReac eye Verified 03/18/23 14:07 swelling, and face swelling Home Medications Medication Instructions Recorded Confirmed Last Taken Type acetaminophen 325 mg capsule 325 mg PO QID PRN Pain 07/12/20 05/12/22 Unknown History vitamin B complex (Vitamins B 1 tab PO DAILY 05/05/22 05/12/22 Unknown History Complex tablet) Exam Exam Date and Time: March 31, 2023 1356 Pertinent Lab Results Pertinent Lab Results: Laboratory Tests 03/18/23 14:59 WBC 6.2 Hgb 15.1 Hct 45.4 Plt Count 247 Sodium 138 Potassium 4.7 Chloride 102 Carbon Dioxide 28 BUN 9 Creatinine 0.89 Assessment and Plan Assessment Anesthesia Assessment: Chart Reviewed Final Anesthetic Review Family History of Problems with Anesthesia: No History of Problems with Anesthesia: No Documented by User: Mireya Walton MD 04/02/23 07:29 [facility] Past Medical History Medical History COVID-19 vaccine series completed History of COVID-19 Onychomycosis Surgical History Surgical History History of carpal tunnel release H/O colonoscopy Social History Social History Patient Tobacco Use Status: Never used Tobacco Advance Directives: No Advance Directives Information Provided: Yes Nutrition Risks: No Nutritional Risk Current occupational status: employed 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, 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 Allergies Allergy/AdvReac Type Severity Reaction Status Date / Time aspirin AdvReac eye Verified 03/18/23 14:07 swelling, and face swelling Home Medications Medication Instructions Recorded Confirmed Last Taken Type acetaminophen 325 mg capsule 325 mg PO QID PRN Pain 07/12/20 05/12/22 Unknown History vitamin B complex (Vitamins B 1 tab PO DAILY 05/05/22 05/12/22 Unknown History Complex tablet) Exam Airway Mallampati Class: II TM Dist: >3cm Neck ROM: Full Heart: rrr Lungs: cta Assessment and Plan Assessment Anesthesia Assessment: Anesthesia Plan Discussed Final Anesthetic Review NPO: Yes ASA Class: II Final Preanesthetic Review: No Changes in Pt Med Stat, Meds/Allgs Chart Reviewed, Consent Obtained/Reviewed and Anes Risks/Benef Reviewed Patient Risk: Low Procedure Risk: Intermediate Anesthetic Plan Disposition: Standard PACU
[2023-04-02 06:42] VITALS: BMI 26.5
[2023-04-02 06:44] VITALS: BP 127/81; PULSE 89; RESP 20; TEMP 36.8; O2SAT 99
[2023-04-02] MEDS: Lactated Ringers 1,000 ML 100 ML IVCONT (07:01)
--- NOTE | 2023-04-02 07:30 | MHC.SHP ---
Pre-Procedural Eval Section A Date of Service: 04/02/23 The patient is an INPATIENT: No Changes since office visit: No Cold of Flu in the past 2 weeks, No New Medical Problems, No Changes in Medication and No Patient answered all questions The History & Physical has been completed within 30 days and I have reviewed it.: Yes Section B Chief Complaint: Epigastric pain Allergies: Allergies Allergy/AdvReac Type Severity Reaction Status Date / Time aspirin AdvReac eye Verified 03/18/23 14:07 swelling, and face swelling Plan I have reviewed the history and physical and performed a pertinent physical examination on my patient. No changes have occurred unless specified. Time Spent With Patient Time: Total time managing care of this patient today ____ minutes.
--- NOTE | 2023-04-02 08:03 | PM.OP ---
Brief Operative Note Date of Service: 04/02/23 Pre-op diagnosis: see H&P no changes Post-op diagnosis: same Procedure: egd Surgeon: Henok Monte MD Anesthesia: MAC Was an Schedule Supervisor used for this Procedure?: No Estimated blood loss (mL): 2 Pathology: other Condition: stable Disposition: PACU
[2023-04-02 08:05] VITALS: BP 103/55; PULSE 64; RESP 16; TEMP 36.3; O2SAT 100
--- NOTE | 2023-04-02 08:19 | OP_ITS ---
DATE OF SERVICE: 04/02/2023 SURGEON: Henok Monte MD INDICATIONS: Epigastric pain. PREOPERATIVE DIAGNOSIS: POSTOPERATIVE DIAGNOSIS: PROCEDURE PERFORMED: Upper endoscopy with biopsy. ESTIMATED BLOOD LOSS: COMPLICATIONS: ANESTHESIA: Monitored anesthesia care. ASSISTANTS: SPECIMENS: DESCRIPTION OF PROCEDURE: A history and physical was performed. The risks and benefits of the procedure were explained to the patient. Informed consent was obtained. The patient was placed in the left lateral decubitus position. The Olympus video gastroscope was introduced into the esophagus, stomach, and duodenum. Examination was performed. The scope was removed. He was repositioned. He tolerated the procedure well and was taken to recovery in stable condition. FINDINGS: Esophagus: The esophagus was normal. Biopsies were obtained from the EG junction. There was a small sliding hiatal hernia. Stomach: The stomach showed no evidence of masses, ulcers, or polyps. Biopsies were obtained from the antrum to evaluate for H pylori. Duodenum: The bulb and 2nd portion were normal. Second portion biopsies were obtained to assess for any evidence of celiac disease. The mucosa appeared normal. IMPRESSION: Normal upper endoscopy. RECOMMENDATION: Follow up the biopsy results. MD GALI Jin/MARILUL / [id number]
[2023-04-02 08:20] VITALS: BP 121/67; PULSE 65; RESP 18; TEMP 36.2; O2SAT 99
== END 2023-04-02 08:52 | disposition home or self-care (01) ==
PROVIDERS: PCP General Practice; Visit Provider Internal Medicine Gastroenterology
PROC: 0DJ08ZZ Inspection of Upper Intestinal Tract, Via Natural or Artificial Opening Endoscopic (ICD-10-PCS; CPT 43235; principal; 2023-04-02 10:40)
DX: R10.13 Epigastric pain (principal); K44.9 Diaphragmatic hernia without obstruction or gangrene; B35.1 Tinea unguium; Z79.899 Other long term (current) drug therapy; Z88.8 Allergy status to other drugs, medicaments and biological substances; Z86.16 Personal history of COVID-19
CPT/HCPCS: 43239; 88305; 88342

== ENCOUNTER 2023-04-16 11:35 | Outpatient (REF) | payer MEDICAID, SELFPAY ==
--- NOTE | ~2023-04-16 | XR_ITS ---
EXAMINATION: XR HAND, LEFT CLINICAL INFORMATION: Left hand pain, base of second finger with tender mass. Patient states pain 3-4 days, no injury COMPARISON: Left thumb 02/21/2022 TECHNIQUE: PA, lateral, and oblique views of the left hand. FINDINGS: The bones are intact. No fracture. Alignment is anatomic. Joint spaces are maintained. No erosions or soft tissue calcifications. No radiopaque foreign body in the soft tissues. XR/XR hand LT min 3V IMPRESSION: No bony abnormality.
== END 2023-04-16 11:36 | disposition home or self-care (01) ==
LOC: HO.HHCX 11:35
PROVIDERS: Visit Provider General Practice
DX: M79.642 Pain in left hand (principal)
CPT/HCPCS: 73130

== ENCOUNTER 2023-11-24 09:20 | Outpatient (AMB) | payer MEDICAID, SELFPAY ==
--- NOTE | 2023-11-24 09:24 | A.OFFVIS_ITS ---
Vital Signs 11/24/23 09:25 Height 5 ft 6 in Weight 175 lb BMI 28.2 Handedness Left Intake Visit Reasons: ov - B/L CTS Intake Note: Carlos is a 48 year old left hand dominant male who presents today for a new problem visit for right hand tingling and numbness. Left CTR done 06/11/22. States his right is worse than his left hand. Patient denies he is having numbness and tingling in left hand however he is having complaints of pain at the PIP and MCP joint in the left hand when he makes a fist. He has been having on and off numbness and tingling during the day and worsens in the day time in his right hand. Right hand started about two years ago. He has tried Tylenol in the past with mild relief. EMG done on 10/02/21 and would like to discuss surgical intervention. Sports Medicine Coordinator Name: [id number] Allergies aspirin Adverse Reaction (Verified 11/24/23 09:30) eye swelling, and face swelling HPI HPI ov - B/L CTS: Details: Carlos is a 48 year old right hand dominant man who returns with complaints of right hand numbness. He complains of numbness in the right thumb, index, and middle fingers for ~2 years. Symptoms intermittent but daily, worse at night. He has not had a NCS done on his right side. He also complains of pain in his left middle & ring fingers, primarily when making a fist. He says he has occasional locking & catching in these fingers at times, worse in the middle finger. He has a Hx of a left carpal tunnel release, DOS: 06/11/22. He had good improvement in his symptoms following surgery and denies any numbness. 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 Review of Systems Const All systems reviewed & are unremarkable except as noted in HPI and below Physical Exam Vital Signs: BMI result Body Mass Index 28.2 Const General: no acute distress and alert Orientation/consciousness: patient oriented x3 Neuro General: patient oriented x3 Extrem Other: Evaluation of Bilateral Upper Extremity: The patient is alert, oriented, and in no acute distress Neuro: Median, Ulnar, Radial nerves motor and sensory intact and sensation is normal to the tips of all digits today in clinic No thenar or intrinsic wasting Good APB muscle belly firing and good finger cross Vascular: Cap refill brisk ROM: He can make a fist and extend all his digits Visible catching of the left middle finger Mild tenderness over the a1 gabriela of the left ring finger, no visible locking or catching Psych Appearance: grossly normal Affect: normal affect Attitude: cooperative Office Procedures Fracture Care Details: No fracture, injection Fracture Billing Code: Fracture Billing Code Assessment & Plan Assessment & Plan (1) Numbness and tingling in right hand: Code(s): R20.0 - Anesthesia of skin; R20.2 - Paresthesia of skin Category: Medical (2) Trigger middle finger of left hand: Code(s): M65.332 - Trigger finger, left middle finger Category: Medical (3) Other synovitis and tenosynovitis, left hand: Comment: L RF pre-trigger Code(s): M65.842 - Other synovitis and tenosynovitis, left hand Category: Medical Plan Assessment & Plan: 1. Left middle finger trigger finger I educated him about this condition I discussed operative and non-operative treatment options The patient would like to proceed with an injection for his middle finger. Injection #1: The risks and benefits of a steroid injection including but not limited to risk of damage to blood vessels, nerves, tendons, infection, skin bleaching, failure to improve symptoms, increased pain, and possible need for further injections or other intervention were discussed with the patient and the patient wishes to proceed with the steroid injection. Once consent was obtained, I sterilely prepped the area over the A1 gabriela of the flexor tendon sheath of the left middle finger. I then injected the flexor tendon sheath with a combination of 1 mL of dexamethasone (4mg/ml), and 1% lidocaine. The patient tolerated the procedure well with no complications. If the patient continues to have locking and catching 4-6 weeks following this injection, they may call to schedule appointment to discuss alternative treatment options 2. Right hand numbness In the median nerve distribution Symptoms intermittent, but daily, worse at night I ordered a NCS to assess for peripheral nerve compression He will follow up when completed for review 3. Left ring finger pre-trigger tenosynovitis Mild tenderness over the a1 gabriela No locking or catching today in clinic 4. Left Carpal tunnel syndrome, S/P release DOS: 06/11/22 Good resolution of his symptoms Scribed for Yoli Haddad MD by Dru Hays, medical education specialist, on 11/24/23 at 9:40 AM, EST. Orders: Orders NE nerve conduction velocity Today R20.0 - Anesthesia of skin, R20.2 - Paresthesia of skin Coding Level of Care Code Est Pt Level 4 (45599) Diagnoses Numbness and tingling in right hand R20.0; R20.2 Trigger middle finger of left hand M65.332 Other synovitis and tenosynovitis, left hand M65.842 CPT Codes Fracture Care - Fracture Billing Code: Fracture Billing Code ([id number])
[2023-11-24 09:25] VITALS: BMI 28.2
== END 2023-11-24 10:10 | disposition home or self-care (01) ==
PROVIDERS: PCP General Practice; Visit Provider Orthopaedic Surgery
DX: R20.0 Anesthesia of skin (principal); R20.2 Paresthesia of skin; M65.332 Trigger finger, left middle finger; M65.842 Other synovitis and tenosynovitis, left hand
CPT/HCPCS: 20550; 99214

== ENCOUNTER → 2023-11-24 09:20 | Outpatient (BNVA) | payer MEDICAID, SELFPAY | PROVIDERS: PCP General Practice; Visit Provider Physician Assistant | DX: R20.0 Anesthesia of skin (principal); R20.2 Paresthesia of skin; M65.332 Trigger finger, left middle finger; M65.842 Other synovitis and tenosynovitis, left hand | CPT/HCPCS: 20550; 99212; J1100 ==

== ENCOUNTER 2023-12-01 14:54 | Outpatient (REF) | payer MEDICAID, SELFPAY ==
--- NOTE | 2023-12-01 14:57 | EMG_ITS ---
Chief complaint: Right hand numbness History of left Carpal Tunnel Syndrome surgery. Last EMG left upper extremity Dr. Rodriguez. I do not think EMG was done on right side in the past. Reason for referral: Evaluate for Carpal Tunnel Syndrome Referred by: Dr. Yoli Haddad Procedure done: Right upper extremity NCS/EMG Precautions and/or limitations: None [place] speaking, seen with pediatric oncologist. The limb temperature was monitored continuously and remained between 32-36 degrees C during the performance of the NCS. Nerve Conduction Studies Anti Sensory Summary Table ?Stim Site NR Onset (ms) Norm Onset (ms) Peak (ms) Norm Peak (ms) O-P Amp (?V) Norm O-P Amp Site1 Site2 Delta-0 (ms) Dist (cm) David (m/s) Norm David (m/s) Right Median Anti Sensory (2nd Digit) Wrist ? 3.1 4.2 <3.6 32.5 >10 Wrist 2nd Digit 3.1 14.0 45 Right Radial Anti Sensory (Thumb) Forearm ? 1.4 2.0 <3.1 27.7 Forearm Thumb 1.4 0.0 Right Ulnar Anti Sensory (5th Digit) Wrist ? 2.3 2.9 <3.7 27.8 >15.0 Wrist 5th Digit 2.3 14.0 61 Motor Summary Table ?Stim Site NR Onset (ms) Norm Onset (ms) O-P Amp (mV) Norm O-P Amp iAmp (mV) Amp (1st) (%) Site1 Site2 Delta-0 (ms) Dist (cm) David (m/s) Norm David (m/s) Right Median Motor (Abd Poll Brev) Wrist ? 4.1 <3.9 8.7 >4.5 11.4 100.0 Elbow Wrist 4.0 21.0 53 >45 Elbow ? 8.1 8.0 10.5 92.0 Right Ulnar Motor (Abd Dig Minimi) Wrist ? 2.7 <3.0 8.5 >5 9.6 100.0 B Elbow Wrist 3.2 21.0 66 >45 B Elbow ? 5.9 7.2 8.4 84.7 A Elbow B Elbow 1.1 10.0 91 >45 A Elbow ? 7.0 7.2 8.3 84.7 EMG ?Side Muscle Nerve Root Ins Act Fibs Psw Amp Dur Poly Recrt Int Pat Comment Right 1stDorInt Ulnar C8-T1 Nml Nml Nml Nml Nml 0 Nml Complete Right FlexCarRad Median C6-7 Nml Nml Nml Nml Nml 0 Nml Complete Right Biceps Musculocut C5-6 Nml Nml Nml Nml Nml 0 Nml Complete Right Triceps Radial C6-7-8 Nml Nml Nml Nml Nml 0 Nml Complete Right Deltoid Axillary C5-6 Nml Nml Nml Nml Nml 0 Nml Complete FINDINGS: Right median motor nerve showed prolonged distal latency, normal amplitude and normal conduction velocity. Right median sensory nerve showed prolonged peak latency. All other nerves tested were within normal. Concentric needle EMG was performed in selected muscles of the right upper extremity. Study did not reveal signs of electric abnormalities as shown in the table above. IMPRESSION: 1. This is an abnormal study. 2. There is electrodiagnostic evidence for right moderate-severe median neuropathy at the wrist, consistent with carpal tunnel syndrome. 3. There is no electrodiagnostic evidence for ulnar neuropathy, brachial plexopathy, or cervical radiculopathy. Thank you for your kind referral. Claudia Slater MD, PEDRO LUIS Board Certified, [place] Board of Physical Medicine and Rehabilitation (ABPMR) Board Certified, [place] Board of Electrodiagnostic Medicine (ABEM) [place] [id number] [facility]
== END 2023-12-01 14:55 | disposition home or self-care (01) ==
LOC: HO.NEURO 14:54
PROVIDERS: Visit Provider Orthopaedic Surgery
DX: R20.0 Anesthesia of skin (principal); R20.2 Paresthesia of skin
CPT/HCPCS: 95886; 95909

== ENCOUNTER → 2023-12-01 14:57 | Outpatient (BNV) | payer MEDICAID, SELFPAY | PROVIDERS: Visit Provider Physical Medicine & Rehabilitation | DX: G56.01 Carpal tunnel syndrome, right upper limb (principal) | CPT/HCPCS: 95886; 95909 ==

== ENCOUNTER 2024-01-18 10:06 | Outpatient (REF) | payer MEDICAID, SELFPAY | END 2024-01-18 10:07 | disposition home or self-care (01) | LOC: HO.HOSX 10:06 | PROVIDERS: Visit Provider Physician Assistant | DX: Z13.89 Encounter for screening for other disorder (principal) ==

== ENCOUNTER 2024-03-14 05:48 | Emergency (ER) | payer MEDICAID, SELFPAY ==
--- NOTE | ~2024-03-14 | XR_ITS ---
EXAMINATION: XR CHEST CLINICAL INFORMATION: Productive cough. Chest pain. COMPARISON: None available. TECHNIQUE: 2 views of the chest were obtained. FINDINGS: Normal appearance of the cardiomediastinal structures. The pleura no focal pulmonary consolidation normal pattern of pulmonary vasculature. No displaced rib fractures identified. XR/XR chest 2V IMPRESSION: Normal chest. Lungs clear. Electronically signed by: Kyle Swann MD 03/14/2024 06:38 AM EDT
[2024-03-14 05:52] VITALS: BP 126/80; PULSE 75; RESP 18; TEMP 36.4; O2SAT 97; BMI 27.8
[2024-03-14 06:51] LABS: Influenza A PCR NEGATIVE (Negative); Influenza B PCR NEGATIVE (Negative); Resp Syncy Virus RNA Qual PCR NEGATIVE (Negative); SARS COV2 PCR INHOUSE NEGATIVE (Negative)
[2024-03-14 06:55] VITALS: BP 116/85; PULSE 69; RESP 14; O2SAT 98
--- NOTE | 2024-03-14 07:05 | ECG_ITS ---
Test Reason : chest pain Blood Pressure : / mmHG Vent. Rate : 059 BPM Atrial Rate : 059 BPM P-R Int : 150 ms QRS Dur : 086 ms QT Int : 400 ms P-R-T Axes : 033 029 022 degrees QTc Int : 396 ms Sinus bradycardia Otherwise normal ECG No previous ECGs available Referred By: Hanny Perez Electronically Signed By:SAMPSON DOMINGUEZ MD
--- NOTE | 2024-03-14 07:06 | ED.URI ---
HPI - URI/Sore Throat General Chief Complaint: Upper Respiratory Symptoms Stated Complaint: flu like Time Seen by Provider: 03/14/24 07:04 Source: patient, old records reviewed and [employer] Mode of arrival: ambulatory Limitations: no limitations History of Present Illness ED Provider: LUIS NIXON Narrative: 48 yo male with no sig PMH here with c/o 3 days cough, sputum production, eye irritation, sinus pressure, fevers and chills. No travel, sick contacts. Chest hurts with tightness after coughing. He did take tylenol for fever [employer]. He is able to eat and drink MD elicited complaint: fever, cough, sore throat, rhinorrhea and sinus pain Pertinent past history: asthma Onset (ago): day(s) (3) Consistency: progressively worsening Severity: moderate Description of mucous: yellow Able to tolerate fluids by mouth: Yes Exacerbating factors: swallowing Relieving factors: OTC cold medicine Associated symptoms: fever, chills, nasal congestion, sore throat, cough and shortness of breath Treatments prior to arrival: acetaminophen Related Data Home Medications ?Medication ?Instructions ?Recorded ?Confirmed acetaminophen 325 mg capsule 325 mg PO QID PRN Pain 07/12/20 05/12/22 Previous Rx's ?Medication ?Instructions ?Recorded betamethasone dipropionate 0.05 % 1 appl topical BID 4 weeks #15 04/02/22 topical ointment grams albuterol sulfate 90 mcg/actuation 2 puff inhalation QID PRN 03/14/24 aerosol inhaler shortness of breath or wheezing #6.7 grams azithromycin 250 mg tablet See Rx Instructions PO .COMPLEX #6 03/14/24 tabs prednisone 20 mg tablet 40 mg (2 x 20 mg) PO DAILY 5 days 03/14/24 #10 tabs Allergies Allergy/AdvReac Type Severity Reaction Status Date / Time aspirin AdvReac eye Verified 03/14/24 05:52 swelling, and face swelling Review of Systems Review of Systems: Constitutional : pos Fever, pos Chills ENT/Mouth : No Hoarseness, pos sore throat, pos Rhinorrhea Eyes: No Redness, No Discharge, No Vision Changes Cardiovascular : pos Chest Pain, positive SOB, no edema Respiratory : positive Cough, pos Sputum, no Wheezing, Gastrointestinal : No Nausea, No Vomiting, No Diarrhea, No abdominal Pain Genitourinary : No Dysuria, No Hematuria Musculoskeletal : No joint pain, No Myalgias Skin : No rash Neuro : No Weakness, No Numbness, No Headache Psych : No anxiety, depression Heme/Lymph: No Bruising, No Bleeding Endocrine : No Polyuria, No Polydipsia All other systems reviewed and are negative [facility] Past Medical History Attestation statement: The following information was validated with the patient. 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 Oriented X3. No acute distress. Eyes: Pupils equal, round and reactive to light. slightly erythematous with injection ENT: Pharynx normal. TMs normal Neck: Normal inspection. Neck supple. CVS: Normal heart rate and rhythm. Pulses normal. Respiratory: No respiratory distress. Breath sounds rhonchi anteriorly noted, diminished posteriorly Abdomen: Soft and non-tender. Skin: Skin warm and dry. Normal skin color. Normal skin turgor. Extremities: No lower extremity edema. Neuro: Oriented X 3. No motor deficit. No sensory deficit. Medical Decision Making Medical Decision Making MDM Narrative: 48 yo male with no sig PMH here with c/o cough, sputum production, fevers, chest tightness at this time no travel or risk factors on exam suspect bronchitis vs viral syndrome - will obtain viral panel, CXR and start on steroids/INH and zpak. He will get EKG for cough induced chest pain but suspect MSK pain and not VTE or ACS - atypical and present with cough Differential Diagnosis Differential Diagnoses: The differential diagnosis associated with the presentation includes bronchitis, sinusitis, viral syndrome Admission/Observation Consideration of admission/observation: Escalation of care including admission/observation considered no hypoxia no resp distress feels much better stable for DC Lab Data MDM Lab Attestation statement: I reviewed the patient's lab results. Labs: Lab Results 03/14/24 Range/Units 06:01 Influenza Type A (PCR) NEGATIVE (Negative) Influenza Type B (PCR) NEGATIVE (Negative) RSV RNA Qual (PCR) NEGATIVE (Negative) SARS-CoV-2 RNA (RT-PCR) NEGATIVE (Negative) Independent Interpretation I performed an independent interpretation of an: EKG and Plain X-Ray (normal) Interpretation: Rate: 59 Rhythm: sinus bradycardia Ririe: normal Normal P waves. Normal AMANDA. Normal QRS complex. ST T wave : normal no ALEX qTC: 396 prior studies: on acute ischemia The study has been interpreted contemporaneously by me. . Radiology Impression Discussion of test interpretation with radiology: I have reviewed the radiologist's reading. External Record Review External record reviewed: Office record Prescription Management I considered prescription management with: Antibiotic and Other Discharge Plan Discharge Clinical Impression: Acute bronchitis Qualifiers: Bronchitis organism: unspecified organism Qualified Code(s): J20.9 - Acute bronchitis, unspecified Patient Disposition: Home, Self-Care Instructions: Acute Bronchitis (ED) Additional Instructions: return for worsening symptoms or concerns stay hydrated take medications with food and full glass of water negative for covid flu rsv Prescriptions: New azithromycin 250 mg tablet See Rx Instructions .ROUTE .COMPLEX Qty: 6 0RF Rx Instructions: For 250 mg dose pack: take 500 mg today (day 1), then 250 mg for 4 days (days 2-5) prednisone 20 mg tablet 40 mg PO DAILY 5 Days Qty: 10 0RF albuterol sulfate 90 mcg/actuation HFA aerosol inhaler 2 puff inhalation QID PRN (Reason: shortness of breath or wheezing) Qty: 6.7 0RF No Action acetaminophen 325 mg capsule 325 mg PO QID PRN (Reason: Pain) betamethasone dipropionate 0.05 % ointment 1 appl topical BID 28 Days Qty: 15 0RF Rx Instructions: Thin coat 2 times per day Stand Alone Forms: Work/School Release Print Language: Sami
[2024-03-14 07:29] VITALS: BP 116/85; PULSE 69; RESP 14; TEMP 36.4; O2SAT 98
== END 2024-03-14 07:30 | disposition home or self-care (01) ==
PROVIDERS: Emergency Provider Emergency Medicine; PCP General Practice
DX: J20.9 Acute bronchitis, unspecified (principal); R05.9 Cough, unspecified; R07.89 Other chest pain; R09.81 Nasal congestion; R06.02 Shortness of breath; Z79.899 Other long term (current) drug therapy; Z03.818 Encounter for observation for suspected exposure to other biological agents ruled out
CPT/HCPCS: 0241U; 71046; 93005; 99283; 99284

== ENCOUNTER → 2024-03-14 07:05 | Outpatient (BNV) | payer MEDICAID, SELFPAY | PROVIDERS: Emergency Provider Emergency Medicine; PCP General Practice; Visit Provider Internal Medicine Cardiovascular Disease | DX: R07.9 Chest pain, unspecified (principal) | CPT/HCPCS: 93010 ==

== ENCOUNTER → 2024-05-30 07:54 | Outpatient (REF) | payer MEDICAID, SELFPAY | LOC: HO.NUCMED 07:54 | PROVIDERS: PCP General Practice; Visit Provider General Practice | DX: R10.84 Generalized abdominal pain (principal) | CPT/HCPCS: 78264; A9541 ==

== ENCOUNTER → 2024-05-30 07:55 | Outpatient (BNV) | payer MEDICAID, SELFPAY | PROVIDERS: PCP General Practice; Visit Provider Radiology Diagnostic Radiology | DX: R10.9 Unspecified abdominal pain (principal) | CPT/HCPCS: 78264 ==

== ENCOUNTER 2024-11-26 13:48 | Emergency (ER) | payer MEDICAID, SELFPAY ==
[2024-11-26 14:03] VITALS: BP 105/70; PULSE 67; RESP 18; TEMP 36.6; O2SAT 100; BMI 26.6
--- NOTE | 2024-11-26 14:12 | ED_ITS ---
HPI - General Adult General Chief complaint: Skin/Abscess/Foreign Body Stated complaint: General Medical Time Seen by Provider: 11/26/24 14:06 Source: patient Mode of arrival: ambulatory Limitations: no limitations History of Present Illness ED Provider: Dominic Rosen HPI narrative: 49 yoild male with pmh of shingles and chicken pox presents to the ED for burning sensation on left torso with new lesion. Patient is concerning for having another shingles rash flare up. Patient had shinlges in similar area 2 years ago. patient states his girlfriend has been positive for shingles for the past week. Related Data Home Medications ?Medication ?Instructions ?Recorded ?Confirmed acetaminophen 325 mg capsule 325 mg PO QID PRN Pain 05/12/22 Previous Rx's ?Medication ?Instructions ?Recorded betamethasone dipropionate 0.05 % 1 appl topical BID 4 weeks #15 04/02/22 topical ointment grams albuterol sulfate 90 mcg/actuation 2 puff inhalation Q ID PRN 03/14/24 aerosol inhaler shortness of breath or wheez ing #6.7 grams azithromycin 250 mg tablet See Rx Instructions PO .COM PLEX #6 03/14/24 tabs prednisone 20 mg tablet 40 mg (2 x 20 mg) PO DAILY 5 days 03/14/24 #10 tabs valacyclovir 1 gram tablet 1,000 mg PO TID 7 days #21 tabs 11/26/24 Allergies Allergy/AdvReac Type Severity Reaction Status Date / Time aspirin AdvReac eye Verified 11/26/24 14:06 swelling, and face swelling Review of Systems 2 Review of Systems: burning sensation and lesions Yes all other systems are reviewed and are negative FOR[facility]LY [facility], [facility] Past Medical History Medical History COVID-19 vaccine series completed History of COVID-19 Onychomycosis Surgical History History of carpal tunnel release H/O colonoscopy Social History Social History Alcohol intake: never Patient Tobacco Use Status: Never used Tobacco Advance Directives: No Advance Directives Information Provided: No Current occupational status: employed 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, 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 Physical Exam ED Vital Signs: Vital Signs - 24 hr 11/26/24 14:03 11/26/24 14:26 Temperature 97.8 F 97.8 F Pulse Rate 67 67 Respiratory Rate 18 18 Blood Pressure 105/70 105/70 Pulse Oximetry 100 100 Oxygen Delivery Method Room Air Room Air BMI result Body Mass Index 26.6 Const General: cooperative, healthy appearing, comfortable, no acute distress, well developed, alert, awake and Physically active Orientation/consciousness: patient oriented x3 HENMT Other: negative for rash on nose or face Head: Yes normal to inspection, Yes No palpable skull fracture present and Yes normocephalic Ears: hearing grossly normal bilaterally, external ears normal, TM's normal bilaterally, TM normal on the right, TM normal on the left, EAC's normal, mastoids normal and no periauricular adenopathy Throat: Yes posterior oropharynx normal, Yes tonsils normal and Yes uvula midline Eyes General: appearance normal, both eyes and all related structures Neck Neck: Yes normal visual inspection, Yes full ROM, Yes no lymphadenopathy, Yes no meningeal signs, Yes trachea midline, Yes supple, No anterior neck swelling and No tender Chest Chest palpation & inspection: normal inspection of the chest and normal palpation of entire chest wall Resp Effort & Inspection: normal respiratory effort and able to speak in complete sentences Auscultation: clear to auscultation bilaterally Cardio Jugular venous distension: no JVD Heart sounds: S1 normal heart sound present and S2 normal heart sound present GI Inspection: Yes normal to inspection Palpation (GI): Soft to palpation, not firm, nontender, no guarding and not rigid Abdomen image: 2 1. Small vesicular lesion. Patient states surrounding area: going Up has burning sensation. Rest of torso and left upper extremity negative for any obvious rash. General: Yes no CVA tenderness Back/Spine/Pelvis Other: no rash Back: no CVA tenderness and No back tenderness Skin General skin exam: no rashes or lesions noted, elasticity normal and turgor normal Neuro General: patient oriented x3, gait normal, tone normal, moves all extremities, Normal light touch and pain sensation, no meningeal signs, no focal motor deficits, CN's II-XI intact bilaterally and normal sensation to monofilament Extrem General: Yes normal to inspection, Yes full ROM and Yes capillary refill normal Psych Appearance: grossly normal, well kempt and not disheveled Medical Decision Making Medical Decision Making MDM Narrative: RME: 49-year-old male presents to the ED for evaluation of shingles. Patient states having burning tingling sensation on left abdomen and has a new lesion. Patient states had shingles in the same area/torso abdomen on the left side whole-body 2 years ago. Patient states usually he has couple of days of burning sensation and days later on rash appears. Patient also states his girlfriend is presently being treated for shingles. Patient denies any rash or burning on right side of the body. Patient denies any right arm rash or shingles. Patient will be treated as shingles and informed to follow up with primary care provider. not supecting herpes opthlalmimc, allergic reaction, cellulitits, tick rash, williams jose carlos, or any other life threatening etiology. Differential Diagnosis Differential Diagnoses: The differential diagnosis associated with the presentation includes (Shingles, hives,) Admission/Observation Consideration of admission/observation: Escalation of care including admission/observation considered Independent Historian Clinical information obtained from an independent historian. History obtained from or confirmed by: Other (Patient) Prescription Management I considered prescription management with: Antiviral Discharge Plan Discharge Clinical Impression: Shingles Patient Disposition: Home, Self-Care Instructions: Shingles (ED) Additional Instructions: You are being treated empirically for shingles due to your rash and burning sensation on left side torso, history of shingles, and exposure to partner diagnosed with shingles. Return to the ED for any worsening rash, eye pain, loss of vision, rash on nose, fever, chest pain, shortness of breath, or any other concerning symptoms. Recommend follow up with PCP Prescriptions: New valacyclovir 1 gram tablet 1,000 mg PO TID 7 Days Qty: 21 0RF No Action azithromycin 250 mg tablet See Rx Instructions .ROUTE .COMPLEX Qty: 6 0RF Rx Instructions: For 250 mg dose pack: take 500 mg today (day 1), then 250 mg for 4 days (days 2-5) prednisone 20 mg tablet 40 mg PO DAILY 5 Days Qty: 10 0RF albuterol sulfate 90 mcg/actuation HFA aerosol inhaler 2 puff inhalation QID PRN (Reason: shortness of breath or wheezing) Qty: 6.7 0RF acetaminophen 325 mg capsule 325 mg PO QID PRN (Reason: Pain) betamethasone dipropionate 0.05 % ointment 1 appl topical BID 28 Days Qty: 15 0RF Rx Instructions: Thin coat 2 times per day Stand Alone Forms: Work/School Release Interventions: ED Discharge Assessment Last Done: 11/26/24 14:26 Discharge Date/Time: 11/26/24 14:26 Print Language: Russian
[2024-11-26 14:26] VITALS: BP 105/70; PULSE 67; RESP 18; TEMP 36.6; O2SAT 100
== END 2024-11-26 14:26 | disposition home or self-care (01) ==
PROVIDERS: Emergency Provider Emergency Medicine Emergency Medical Services; PCP General Practice
DX: B02.8 Zoster with other complications (principal); Z79.899 Other long term (current) drug therapy
CPT/HCPCS: 99282; 99283

== ENCOUNTER 2025-01-02 16:04 | Emergency (ER) | payer MEDICAID, SELFPAY ==
--- NOTE | ~2025-01-02 | CT_ITS ---
CLINICAL HISTORY: head injury, pain, dizziness CT head without contrast Comparison: None provided Findings: No intra-axial mass, midline shift, hydrocephalus, or acute hemorrhage. No significant atrophy-like change or white matter disease. The visualized paranasal sinuses and mastoid air cells are normal. The orbits are within normal limits. No skull fracture. IMPRESSION: 1. No acute intracranial findings. This document has been electronically signed by: Aaron Osorio MD on 01/02/2025 17:54:01
[2025-01-02 16:10] VITALS: BP 123/77; PULSE 67; RESP 18; TEMP 36.6; O2SAT 99; BMI 27.4
--- NOTE | 2025-01-02 16:11 | ED.HEATRA ---
HPI - Head Injury General Chief complaint: Head Injury Stated complaint: Head inj, object fell on head at [employer] Time Seen by Provider: 01/02/25 19:42 Source: patient Mode of arrival: ambulatory Limitations: language barrier (Swedish-speaking marine steward utilized) History of Present Illness ED Provider: ministerio wiley hide paster HPI Narrative: Patient is a 49-year-old male who presents emergency department for evaluation. He reports he was at [employer] shopping for some things, reports that a large box had fallen from a shelf landing onto his head, is not certain heavy it may have been. Reports that he felt very dizzy, near-syncope but no LOC. endorsing strong headache to the point of impact and otherwise diffuse mild headache throughout. Denies vision changes, neck pain, neck stiffness. Denies use of anticoagulants or known coagulation disorders. Denies current dizziness, lightheadedness, numbness or tingling of the extremities, bladder bowel dysfunction. Related Data Home Medications ?Medication ?Instructions ?Recorded ?Confirmed acetaminophen 325 mg capsule 325 mg PO QID PRN Pain 07/12/20 05/12/22 Previous Rx's ?Medication ?Instructions ?Recorded betamethasone dipropionate 0.05 % 1 appl topical BID 4 weeks #15 04/02/22 topical ointment grams albuterol sulfate 90 mcg/actuation 2 puff inhalation QID PRN 03/14/24 aerosol inhaler shortness of breath or wheezing #6.7 grams azithromycin 250 mg tablet See Rx Instructions PO .COMPLEX #6 03/14/24 tabs prednisone 20 mg tablet 40 mg (2 x 20 mg) PO DAILY 5 days 03/14/24 #10 tabs valacyclovir 1 gram tablet 1,000 mg PO TID 7 days #21 tabs 11/26/24 Allergies Allergy/AdvReac Type Severity Reaction Status Date / Time aspirin AdvReac eye Verified 01/02/25 16:13 swelling, and face swelling Review of Systems Review of Systems: Yes all other systems are reviewed and are negative PMFSH Past Medical History Attestation statement: The following information was validated with the patient. 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 No acute distress.?Normal affect. Head: Normocephalic. 1 cm superficial frontal scalp laceration, edges approximated, no active bleeding Eyes: Pupils equal, round and reactive to light. EOMI. Conjunctiva and sclera normal? No Maciel sign noted. No raccoon eyes noted ENT: No septal hematoma, nares patent bilaterally. External auditory canal normal tympanic membrane pearly salcedo and intact bilaterally. Dentition normal, no fractured teeth. No lesions or lacerations of oropharynx. Uvula midline. Moist mucous membranes. Neck: Normal inspection.? Neck supple.??No palpable tenderness, step-off, deformities. CVS: Heart sounds normal. Normal heart rate and rhythm.? Pulses normal.?? Respiratory: No respiratory distress.? Lung sounds clear to auscultation bilaterally?? Abdomen: Soft and non-tender. Normoactive bowel sounds. ?? Skin: Skin warm and dry.? Normal skin color.? Normal skin turgor.?? Extremities: No lower extremity edema.? Neuro: Moves all extremities spontaneously. Sensation intact bilaterally. CN II-XII intact. No focal neuro deficits. Medications Administered Discontinued Medications Generic Name Dose Route Start Last Admin Trade Name Freq PRN Reason Stop Dose Admin Diphtheria/Tetanus/Acell Pertussis 0.5 ml 01/02/25 19:56 01/02/25 20:15 Diphth,Pertus(Acell),Tet Adult 0.5 Ml Syringe IM 01/02/25 19:57 0.5 ml .ONCE ONE Administration Medical Decision Making Medical Decision Making [facility] Narrative: Patient is a 49-year-old male with no reported past medical history who presents emergency department for evaluation of an accidental head injury as per HPI sustaining a superficial laceration to the frontal scalp was cleansed with normal saline, no active bleeding, edges are approximated with scab formation already intact. Not indicated for suture or staple repair. On evaluation has no focal neurological deficits. No use of anticoagulants or known coagulation disorders. Based on mechanism of injury obtained CT of the head, though low suspicion for ICH, SDH, skull fracture. CT revealed no acute intracranial pathology.. Last tetanus vaccination is unknown was updated today. Given strict return precautions, ambulatory with steady gait, stable for discharge home, tolerating oral intake. Differential Diagnosis Differential Diagnoses: The differential diagnosis associated with the presentation includes (See narrative above) Admission/Observation Consideration of admission/observation: Escalation of care including admission/observation considered (See narrative above) External Record Review External record reviewed: Outpatient record Discharge Plan Discharge Clinical Impression: Acute head injury without loss of consciousness Qualifiers: Encounter type: initial encounter Qualified Code(s): S09.90XA - Unspecified injury of head, initial encounter Patient Disposition: Home, Self-Care Instructions: Concussion (ED), Head Injury (ED) Additional Instructions: CT scan of the head did not show abnormal findings after your head injury which is reassuring. Tetanus vaccine was updated today. Gently cleanse the scalp with soap and water. You can take ibuprofen 200 mg, 3 tablets (600mg) every 6-8 hours as needed for pain, in addition to Tylenol 500 mg, 2 tablets (1,000mg) every 4-6 hours as needed for pain, but not to exceed 3 doses daily (3,000mg).? Read instructions regarding symptoms that can be associated with concussion it can occur after head injury. Follow-up with primary care doctor. Return with any new or worsening symptoms or concerns Prescriptions: No Action azithromycin 250 mg tablet See Rx Instructions .ROUTE .COMPLEX Qty: 6 0RF Rx Instructions: For 250 mg dose pack: take 500 mg today (day 1), then 250 mg for 4 days (days 2-5) prednisone 20 mg tablet 40 mg PO DAILY 5 Days Qty: 10 0RF albuterol sulfate 90 mcg/actuation HFA aerosol inhaler 2 puff inhalation QID PRN (Reason: shortness of breath or wheezing) Qty: 6.7 0RF valacyclovir 1 gram tablet 1,000 mg PO TID 7 Days Qty: 21 0RF acetaminophen 325 mg capsule 325 mg PO QID PRN (Reason: Pain) betamethasone dipropionate 0.05 % ointment 1 appl topical BID 28 Days Qty: 15 0RF Rx Instructions: Thin coat 2 times per day Referrals: Lori Patel MD [Primary Care Provider, Internal Medicine] Interventions: ED Discharge Assessment Last Done: 01/02/25 20:24 Discharge Date/Time: 01/02/25 20:25 Print Language: Swedish
[2025-01-02] MEDS: Diphth,Pertus(ACell),Tet Adult 0.5 ML SYRINGE IM (20:15)
[2025-01-02 20:24] VITALS: BP 123/77; PULSE 67; RESP 18; TEMP 36.6; O2SAT 99
== END 2025-01-02 20:25 | disposition home or self-care (01) ==
PROVIDERS: Emergency Provider Internal Medicine; PCP General Practice
DX: S09.90XA Unspecified injury of head, initial encounter (principal); S01.01XA Laceration without foreign body of scalp, initial encounter; W20.8XXA Other cause of strike by thrown, projected or falling object, initial encounter; Y93.89 Activity, other specified; Y92.512 Supermarket, store or market as the place of occurrence of the external cause; Y99.9 Unspecified external cause status; Z23 Encounter for immunization
CPT/HCPCS: 70450; 90471; 90715; 99282; 99284

== ENCOUNTER → 2025-01-02 16:18 | Outpatient (BNV) | payer MEDICAID, SELFPAY | PROVIDERS: PCP General Practice; Visit Provider Nuclear Medicine | DX: S09.90XA Unspecified injury of head, initial encounter (principal); R51.9 Headache, unspecified; R42 Dizziness and giddiness | CPT/HCPCS: 70450 ==

== ENCOUNTER 2025-03-23 09:04 | Outpatient (REF) | payer MEDICAID, SELFPAY ==
--- OUTSIDE RECORDS SUMMARY | 2025-03-21 15:00 | XMS_ITS | Encounter Summary ---
Author Organization [facility] Address [address] [place] [address] Care Team Providers Care Librarian Specialist Name Role Phone Lori Patel MD Primary Care Provider [phone] Reason for Visit * Reason Comments Follow-up Encounter Details Date Type Department Care Team ([facility] st Contact Info) Description 03/21/2025 3:00 PM EDT Office Visit [facility] [address] [place] [address] Lori Patel MD [address] [place] [address] Epigastric pain (Primary Dx); Dietary counseling; Exercise counseling; Overweight; Influenza-like symptoms; Acute maxillary sinusitis, recurrence not specified Social History Tobacco Use Types Packs/Day Years Used Date Smoking Tobacco: Never Passive Smoke Exposure: Never Smokeless Tobacco: Never Alcohol Use Standard Drinks/Week Comments Never 0 (1 standard drink = 0.6 oz pur e alcohol) Depression Answer Date Recorded Patient Health Questionnaire-9 Score 7 04/28/2024 Patient Health Questionnaire-9 Score 7 04/28/2024 Last PHQ-9: Questionnaire Data Not on file 1 06/28/2023 Housing Stability Answer Date Recorded What is your housing situation today? I have sukhdeep hardwick 10/12/[address] you li ve. Do you have problems with any of the following? None of the above 10/12/2023 Food Insecurity Answer Date Recorded Within the past 12 months, y ou worried that your food would run out before you got money to buy more: Never True 10/12/2023 Within the past 12 months,th e food you bought just didn't last and you didn't have enough money to get more: Never True 12/2023 Transportation Answer Date Recorded In the past 12 months, has l ack of transportation kept you from medical appts, meetings, work or from getting things needed for daily living? No 10/12/2023 Utilities Answer Date Recorded In the past 12 months, has t he electric, gas, oil or water company threatened to shut off services in your home? No 10/12/2023 Depression Answer Date Recorded Patient Health Questionnaire-2 Score 0 04/28/2024 Sex and Gender Information Value Date Recorded Sex Assigned at Male 04/06/2022 10:37 AM EDT Legal Sex Male 10:37 AM EDT Gender Identity Male 04/06/2022 10:37 AM EDT Sexual Orientation Straight 04/06/2022 10 :37 AM EDT documented as of this encounter Last Filed Vital Signs Vital Sign Reading Time Taken Comments Blood Pressure 100/60 03/21/2025 3:18 PM EDT Pulse 64 03/21/2025 3:18 PM EDT Temperature 36.8 C (98.2 F) 03/21/2025 3:18 PM EDT Respiratory Rate 20 03/21/2025 3:18 PM EDT Oxygen Saturation - - Inhaled Oxygen Concentration - - Weight 80.5 kg (177 lb 6.4 oz) 03/21/2025 3:18 PM EDT Height 167.6 cm (5' 6 ) 03/21/2025 3:18 PM EDT Body Mass Index 28.63 03/21/2025 3:18 PM EDT documented in this encounter Plan of Treatment Scheduled Orders Name Type Priority Associated Diagnoses Orde r Schedule Helicobacter pylori Antigen, EIA, Stool Lab Routine Epigastric pain Expected: 03/21/2025, Expires: 03/21/2026 documented as of this encounter Visit Diagnoses Diagnosis Epigastric pain- Primary Abdominal pain, epigastric Dietary counseling Dietary surveillance and counseling Exercise counseling Overweight Influenza-like symptoms Other general symptoms Acute maxillary sinusitis, recurrence not specified documented in this encounter Additional Health Concerns Assessment Noted Time PHQ-9 Depression Total Score: 7 04/28/20 24 2:32 PM EST documented as of this encounter Care Teams Librarian Specialist Relationship Specialty Start Date End Date Lori Patel MD [address] [place] [address] PCP - General Family Medicine 06/17/20 documented as of this encounter
--- OUTSIDE RECORDS SUMMARY | 2025-03-22 11:00 | XMS_ITS | Encounter Summary ---
Author Organization [employer] Address [address] [facility] 7t [place] [address] Care Team Providers Care Automatic Furnace Operator Name Role Phone Lori Patel MD Primary Care Provider [phone] Reason for Visit * Reason Comments Routine Cleaning Dental Exam Encounter Details Date Type Department Care Team (Late st Contact Info) Description 03/22/2025 11:00 AM EDT Office Visit [facility] [address] [place] [address] Anupam Hobbsaris [address] [place] [address] Impacted third molar tooth (Primary Dx); Normal oral exam; Dental calculus Social History Tobacco Use Types Packs/Day Years [...] your housing situation today? I have sukhdeep ronen 10/12/[address] you li [...] Sign Reading Time Taken Comments Blood Pressure 112/72 03/22/2025 10:50 AM EDT Pulse - - Temperature - - Respiratory Rate - - Oxygen Saturation - - Inhaled Oxygen Concentration - - Weight - - Height - - Body Mass Index - - documented in this encounter Progress Notes * Dalton Goncalves DDS - 03/22/2025 11:00 AM EDT Dental procedures in this visit D1110 - PROPHYLAXIS - ADULT D9450 - CASE PRESENTATION, DETAILED AND EXTENSIVE TREATMENT PLANNING Patient ID: Carlos Paulino is a 49 y.o. male. Time Out: Timeout Date: 03/22/25, Timeout Time: 1054 (deonna, PMayo exam with Dr. Goncalves) Location: [facility] Tooth: Maxilla and Mandible Procedure: Exam and Prophylaxis Verified the above with patient, hospital aides and assistants teacher, and provider. Confirmed via patient's chart, intraorally and by radiographs. Washer Hand: not applicable Chief Complaint Patient presents with Routine Cleaning Dental Exam Medical Hx: Vitals: Blood pressure 112/72. Medical History[1] Medications: Encounter Medications[2] Objective HPI Soft Tissue Exam No findings documented this visit Head and Neck Exam: Lymph Nodes, Lips, Palate, Buccal Mucosa, Floor of Mouth, Tongue, Tonsils, Alveolar Ridges, Oropharynx, Salivary Ducts, and Vestibules normal appearance, TMJ right side clicking Details: Skin NSF OCS: negative Dental Exam As charted Third molar impaction Reference tooth chart for additional findings. Oral Cancer Risk: Low Risk Oral Hygiene Instructions: [place] two times daily, modified peterson technique, Floss daily, Electric toothbrush, Soft bristle toothbrush, [place] Tongue Caries Risk Assessment: Low- no risk factor Assessment/Plan MALLORIE Tamez Oral surgery Referral Patient tolerated procedure well, all questions answered and expressed understanding. Dismissed in good condition. NV: External referral [facility] Box Order Person: Merna Hobbs RDH Dentist: Dalton Goncalves DDS [1] Past Medical History: Diagnosis Date GERD (gastroesophageal reflux disease) Sinusitis [2] Outpatient Encounter Medications as of 03/22/2025 Medication Sig Dispense Refill famotidine (Pepcid) 20 MG tablet Take 1 tablet (20 mg) by mouth 2 times daily. 60 tablet 11 fluticasone (Flonase Allergy Relief) 50 MCG/ACT nasal spray Administer 1 spray into each nostril Once per day. Shake gently. Before first use, prime pump. After use, clean tip and replace cap. 16 g 12 loratadine (Claritin) 10 MG tablet TAKE 1 TABLET BY MOUTH EVERY DAY 90 tablet 3 omeprazole (PriLOSEC) [address] capsule TAKE 1 CAPSULE BY MOUTH TWICE A DAY FOR 2 WEEKS Oral; Duration: 14 ondansetron ODT (Zofran-ODT) 4 MG disintegrating tablet DISSOLVE 1 TABLET BY MOUTH EVERY 8 HOURS ASNEEDED FOR NAUSEA AND VOMITING Oral; Duration: 7 sucralfate (Carafate) 1 GM/10ML suspension TAKE 10MLS BY MOUTH TWICE DAILY FOR 7 DAYS Oral; Duration: 7 valACYclovir (Valtrex) 1 g tablet Take 1 tablet by mouth every 6 (six) hours during the day. betamethasone, augmented, (Diprolene) 0.05 % ointment Apply topically 2 times daily. (Patient not taking: Reported on 06/05/2024) 50 g 0 Diclofenac Sodium 1 % gel Apply 1 Application topically if needed in the morning and at bedtime (pain). (Patient not taking: Reported on 06/05/2024) 150 g 3 Ventolin HFA 108 (90 Base) MCG/ACT inhaler USE 2 PUFFS INHALED 4 TIMES A DAY NEEDED FOR SHORTNESS OF BREATH OR WHEEZING (Patient not taking: Reported on 03/22/2025) [DISCONTINUED] fluticasone (Flonase Allergy Relief) 50 MCG/ACT nasal spray Administer 1 spray into each nostril Once per day. Shake gently. Before first use, prime pump. After use, clean tip and replace cap. 16 g 12 No facility-administered encounter medications on file as of 03/22/2025. * Merna Hobbs - 03/22/2025 11:00 AM EDT Patient ID: Carlos Paulino is a 49 y.o. male. Time Out: Timeout Date: 03/22/25, Timeout Time: 1054 (Estelle tamez exam with Dr. Goncalves) Location: [facility] Tooth: Maxilla and Mandible Procedure: Exam and Prophylaxis Verified the above with patient, hospital aides and assistants teacher, and provider. Confirmed via patient's chart, intraorally and by radiographs. Washer Hand: not applicable Medical Hx: Vitals: Blood pressure 112/72. Medications, Med Hx reviewed with patient and updated in chart. Treatment Provided Dental procedures in this visit D1110 - PROPHYLAXIS - ADULT (Completed) Service provider: Merna Hobbs Billing provider: Dalton Goncalves DDS D9450 - CASE PRESENTATION, DETAILED AND EXTENSIVE TREATMENT PLANNING (Completed) Service provider: Merna Hobbs Billing provider: Dalton Goncalves DDS D0120 - PERIODIC ORAL EVALUATION - ESTABLISHED PATIENT (Completed) Service provider: Dalton Goncalves DDS Billing provider: Dalton Goncalves DDS Instruments Used: Ultrasonic Scalers and Prophy angle. Oral Cancer Screening: No lesions Head/Neck Exam: No Lesions Calculus: Light, Moderate, and Subgingival Plaque: Light Stain: Light Bleeding: Light Gingiva: pink OH: Good Perio Chart: Completed Oral hygiene instructions provided to patient including brushing technique and flossing. Recommendations: [place] two times daily, modified peterson technique, Floss daily, Electric toothbrush, Soft bristle toothbrush, [place] Tongue, Anti-sensitivity toothpaste Recall Frequency: 6 mo Pt was again referred to Shayan Coffey [facility] for 3rd molar EXOs. NV: 6 months for P. Exam, x-rays, perio chart, prophy Hygienist: Merna Anjel, RDH documented in this encounter Plan of Treatment Scheduled Orders Name Type Priority Associated Diagnoses Orde r Schedule PERIODIC ORAL EVALUATION - ESTABLISHED PATIENT Dental Routine 1 Occurren manuelito starting 03/22/2025 PROPHYLAXIS - ADULT Dental Routine 1 Occ urrences starting 03/22/2025 BITEWINGS - 4 RADIOGRAPHIC IMAGES Dental Routine 1 Occurrence s starting 03/22/2025 INTRAORAL - PERIAPICAL FIRST RADIOGRAPHIC IMAGE Dental Routine 1 Occur rences starting 03/22/2025 INTRAORAL - PERIAPICAL EACH ADDITIONAL RADIOGRAPHIC IMAGE Dental Routine 1 Occurrences starting 03/22/2025 CASE PRESENTATION, DETAILED AND EXTENSIVE TREATMENT PLANNING Dental Routine 1 Occurrences starting 03/22/2025 documented as of this encounter Procedures Procedure Name Priority Date/Time Associated Diagnosis Comments PROPHYLAXIS - ADULT Routine 03/22/2025 1 1:00 AM EDT Dental calculus PERIODIC ORAL EVALUATION - ESTABLISHED PATIENT Routine 03/22/2025 11:00 AM EDT CASE PRESENTATION, DETAILED AND EXTENSIVE TREATMENT PLANNING Routine 03/22/2025 11:00 AM EDT Impacted third molar tooth Normal oral exam Dental calculus documented in this encounter Visit Diagnoses Diagnosis Impacted third molar tooth- Primary Disturbances in tooth eruption Normal oral exam Dental calculus Accretions on teeth documented in this encounter Additional Health Concerns Assessment Noted Time PHQ-9 Depression Total Score: 7 04/28/20 24 2:32 PM EST documented as of this encounter Care Teams Automatic Furnace Operator Relationship Specialty Start Date End Date Lori Patel MD [address] [place] [address] PCP - General Family Medicine 06/17/20 documented as of this encounter
--- OUTSIDE RECORDS SUMMARY | 2025-03-23 09:50 | XMS_ITS | Clinical Summary ---
Author Organization [employer] Address [address] [facility] 7[address] [place] [address] Care Team Providers Care Cistern Room Working Supervisor Name Role Phone Lori Patel MD Primary Care Provider [phone] Allergies Active Allergy Reactions Criticality Noted Date Comments Aspirin Unknown 05/19/2018 Medications famotidine (Pepcid) 20 MG tablet Take 1 tablet (20 mg) by mouth 2 times daily. 60 tablet 11 024 2024 Active loratadine (Claritin) 10 MG tabletIndications :Acute maxillary sinusitis, recurrence not specified TAKE 1 TABLET BY MOUTH EVERY DAY 90 tablet 3 025 Active valACYclovir (Valtrex) 1 g tablet Take 1 tablet by mouth every 6 (six) hours during the day. 025 Active omeprazole (PriLOSEC) [address] capsule TAKE 1 CAPSULE BY MOUTH TWICE A DAY FOR 2 WEEKS Oral; Duration: 14 Active ondansetron ODT (Zofran-ODT) 4 MG disintegrating tablet DISSOLVE 1 TABLET BY MOUTH EVERY 8 HOURS NEEDED FOR NAUSEA AND VOMITING Oral; Duration: 7 Active sucralfate (Carafate) 1 GM/10ML suspension TAKE 10MLS BY MOUTH TWICE DAILY FOR 7 DAYS Oral; Duration: 7 Active fluticasone (Flonase Allergy Relief) 50 MCG/ACT nasal sprayIndications: Influenza-like symptoms,Acute maxillary sinusitis, recurrence not specified Administer 1 spray into each nostril Once per day. Shake gently. Before first use, prime pump. After use, clean tip and replace cap. 16 g 12 025 2025 Active betamethasone, augmented, (Diprolene) 0.05 % ointment Apply topically 2 times daily. 50 g 023 2024 Discontinued(T herapy completed) fluticasone (Flonase Allergy Relief) 50 MCG/ACT nasal sprayIndications: Influenza-like symptoms,Acute maxillary sinusitis, recurrence not specified Administer 1 spray into each nostril Once per day. Shake gently. Before first use, prime pump. After use, clean tip and replace cap. 16 g 12 024 2024 Discontinued(R eorder (will not trigger notification to Pharmacy)) Diclofenac Sodium 1 % gel Apply 1 Application topically if needed in the morning and at bedtime (pain). 150 g 3 024 2024 Discontinued(T herapy completed) Ventolin HFA 108 (90 Base) MCG/ACT inhaler USE 2 PUFFS INHALED 4 TIMES A DAY NEEDED FOR SHORTNESS OF BREATH OR WHEEZING 2024 Discontinued(T herapy completed) Active Problems Problem Noted Date Diagnosed Date Normal oral exam 03/22/2025 Dental calculus 03/22/2025 Epigastric pain 03/21/2025 Impacted third molar tooth 06/05/2024 Generalized abdominal pain 04/18/2024 Assessment & Plan (04/30/2024 7:23 PM EST): Will order gastric emptying study as next step in evaluation of chronic non specific abdominal pain Assessment & Plan (04/18/2024 4:43 PM EST): Ro gastritis (from abs), I advised patient to increase Omeprazole to bid x 2w then 1x/d Advised re liquid diet today and advance to BRAT diet tomorrow then soft diet and so on. Out of work x 2d. Can use Bentyl prn abd pain/cramps Re consult prn worsening of sxs. 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 [address] [place] [address] Merna Hobbs Impacted third molar tooth (Primary Dx); Normal oral exam; Dental calculus 03/21/2025 3:00 PM EDT Office Visit [facility] [address] [place] [address] Lori Patel MD Epigastric pain (Primary Dx); Dietary counseling; Exercise counseling; Overweight; Influenza-like symptoms; Acute maxillary sinusitis, recurrence not specified 03/21/2025 Travel 03/20/2025 Travel 03/14/2025 Travel 01/02/2025 Orders Only [facility] External Provider, [facility] from Last 3 Months Immunizations Immunization Administration Dates Next Due Influenza injectable quadriv alent preservative free 04/16/2023,03/18/2022,04/28/2021 Influenza, IIV3, injectable 03/26/2021 Influenza, seasonal, injecta ble, preservative free 04/28/2024 Tdap 07/25/2021 Social History Tobacco Use Types Packs/Day Years Used Date Smoking Tobacco: Never Passive Smoke Exposure: Never Smokeless Tobacco: Never Tobacco Cessation:Counseling Given: Not Answered Alcohol Use Standard Drinks/Week Comments Never 0 [...] Orientation Straight 04/06/2022 10 :37 AM EDT Last Filed Vital Signs Vital Sign Reading Time Taken Comments Blood Pressure 112/72 03/22/2025 10:50 AM EDT Pulse 64 03/21/2025 3:18 PM EDT Temperature 36.8 C (98.2 F) 03/21/2025 3:18 PM EDT Respiratory Rate 20 03/21/2025 3:18 PM EDT Oxygen Saturation 100% 04/28/2024 2:28 PM EST Inhaled Oxygen Concentration - - Weight 80.5 kg (177 lb 6.4 oz) 03/21/2025 3:18 P M EDT Height 167.6 cm (5' 6 ) 03/21/2025 3:18 PM EDT Body Mass Index 28.63 03/21/2025 3:18 PM EDT Plan of Treatment Health Maintenance Due Date Last Done Comments CT Colonography 1974 FIT DNA/Cologuard 1974 FIT 1974 FOBT 1975 HIV Screening 1974 Sigmoidoscopy 1974 Alcohol/Substance Use Screening 1986 Family Planning (PISQ) 1989 Hepatitis B Vaccines (1 of 3 - 19+ 3-dose series) 1993 Pneumococcal Vaccine: 50+ Years (1 of 1 - PCV) 2024 Zoster Vaccines (1 of 2) 2024 SDOH Screening 10/11/2024 10/12/2023 COVID-19 Vaccine ( season) 2025 03/06/2021, 08/04/2020, 07/14/2020 Influenza Vaccine (#1) 2025 , 04/16/2023, 03/09/2023, Additional history exists Depression Screening 04/28/2025 04/28/2024, 04/28/20 Dental X-Ray: Bitewings 06/06/2025 06/05/20 24, 03/13/2022, 10/31/2020 Dental Oral Exam 09/21/2025 03/22/2025, , 03/13/2022, Additional history exists Dental Prophylaxis 09/21/2025 03/22/2025, 1 , 03/13/2022, Additional history exists Disability Screening 03/14/2026 03/14/2025 Tobacco Screening 03/22/2026 03/22/2025 Lipid Panel 07/25/2026 07/25/2021, 06/25/2020 Colonoscopy 08/13/2026 08/13/2021 Colorectal Cancer Screening 08/13/2026 Dental X-Ray: Full Mouth 06/06/2027 06/05/2024, 0512/2020 DTaP/Tdap/Td Vaccines (3 - Td or Tdap) 01/02/2035 01/02/2025, 07/25/2021 RSV Patients and Patients Aged 60 years or older (1 - 1-dose 75+ series) 2049 Hepatitis C Screening Completed 06/25/2020 Diabetes: Hemoglobin A1C Discontinued 07/25/2021, 06/07 HIB Vaccines Aged Out No longer eligi ble based on patient's age to complete this topic HPV Vaccines Aged Out No longer eligi ble based on patient's age to complete this topic Hepatitis A Vaccines Aged Out No long er eligible based on patient's age to complete this topic IPV Vaccines Aged Out No longer eligi ble based on patient's age to complete this topic Meningococcal B Vaccine Aged Out No l onger eligible based on patient's age to complete this topic Meningococcal Vaccine Aged Out No ce lawrence eligible based on patient's age to complete this topic RSV under 20 months Aged Out No longe r eligible based on patient's age to complete this topic Rotavirus Vaccines Aged Out No longer eligible based on patient's age to complete this topic Procedures Procedure Name Priority Date/Time Associated Diagnosis Comments PERIODIC ORAL EVALUATION - ESTABLISHED PATIENT Routine 03/22/2025 11:00 AM EDT CASE PRESENTATION, DETAILED AND EXTENSIVE TREATMENT PLANNING Routine 03/22/2025 11:00 AM EDT Impacted third molar tooth Normal oral exam Dental calculus PROPHYLAXIS - ADULT Routine 03/22/2025 1 1:00 AM EDT Dental calculus CT HEAD WO CONTRAST Routine 01/02/2025 5 :54 PM EDT INTRAORAL - COMPLETE SERIES OF RADIOGRAPHIC IMAGES Routine 06/05/2024 10:00 AM EST HM COLONOSCOPY Routine 08/13/2021 HEMOGLOBIN A1C Routine 07/25/2021 3:24 PM EST LIPID PANEL, STANDARD Routine 07/25/2021 3:24 PM EST ZZZ HISTORICAL HEPATITIS C AB W/REFL TO HCV RNA, QN, PCR Routine 06/25/2020 1:37 PM EST from Last 3 Months or Most Recently Relevant to Health Maintenance Results * CT Head w/o Contrast (01/02/2025 5:54 PM EDT) Anatomical Region Laterality Modality Head, Neck Computed Tomogra phy 01/02/2025 5:54 PM EDT Narrative 01/02/2025 5:55 PM EDT [address] [address] [address] Scan Report Signed Patient: Carlos Downing MR#: [id number] : 1975 Acct:[id number] Age/Sex: 49 / M ADM Date: 01/02/25 Loc: HO.ED Attending Dr: Ordering Physician: Marcie Rodríguez CNP Date of Service: 01/02/25 Procedure(s): CT head/brain wo IV con Accession Number(s): [id number] cc: Marcie Rodríguez CNP; Lori Patel Report Number: [id number]: Total DLP = 593.00 mGy-cm CLINICAL HISTORY: head injury, pain, dizziness CT head without contrast Comparison: None provided Findings: No intra-axial mass, midline shift, hydrocephalus, or acute hemorrhage. No significant atrophy-like change or white matter disease. The visualized paranasal sinuses and mastoid air cells are normal. The orbits are within normal limits. No skull fracture. IMPRESSION: 1. No acute intracranial findings. This document has been electronically signed by: Aaron Osorio MD on 01/02/2025 17:54:01 Dictated By: Aaron Osorio MD Signed By: <Electronically signed by Aaron Osorio MD in OV> 01/02/251754 DD/ 53 TD/TT: 01/02/251753 Director Of Clinical Education: Procedure Note Donotuseinterpreter, Image - 01/02/[address] [address] [address] Scan Report Signed Patient: Carlos DowningMR#: [id number] : 1975Acct:[id number] Age/Sex: 49 / MADM Date: 01/02/25 Loc: HO.ED Attending Dr: Ordering Physician: Marcie Rodríguez CNP Date of Service: 01/02/25 Procedure(s): CT head/brain wo IV con Accession Number(s): [id number] cc: Marcie Rodríguez CNP; Lori Patel Report Number: [id number]: Total DLP = 593.00 mGy-cm CLINICAL HISTORY: head injury, pain, dizziness CT head without contrast Comparison: None provided Findings: No intra-axial mass, midline shift, hydrocephalus, or acute hemorrhage. No significant atrophy-like change or white matter disease. The visualized paranasal sinuses and mastoid air cells are normal. The orbits are within normal limits. No skull fracture. IMPRESSION: 1. No acute intracranial findings. This document has been electronically signed by: Aaron Osorio MD on 01/02/2025 17:54:01 Dictated By: Aaron Osorio MD Signed By: <Electronically signed by Aaron Osorio MD in OV> 01/02/251754 DD/ 53 TD/TT: 01/02/251753 Director Of Clinical Education: [facility] External Provider IMG CT PROCEDURES Final Result * Hm Colonoscopy (08/13/2021) Historical Provider HEALTH MAINTENANCE Final Result * (ABNORMAL) HEMOGLOBIN A1c (07/25/2021 3:24 PM EST) Hemoglobin A1c 5.7(H) <5.7 % of total Hgb [facility] Comment: For someone without known diabetes, a hemoglobin A1c value between 5.7% and 6.4% is consistent with prediabetes and should be confirmed with a follow-up test. For someone with known diabetes, a value <7% indicates that their diabetes is well controlled. A1c targets should be individualized based on duration of diabetes, age, comorbid conditions, and other considerations. This assay result is consistent with an increased risk of diabetes. Currently, no consensus exists regarding use of hemoglobin A1c for diagnosis of diabetes for children. 07/25/2021 3:24 PM EST Lori Patel MD LAB BLOOD ORDERABLES Final Res ult [facility] [address] [place] [address], * (ABNORMAL) LIPID PANEL, STANDARD (07/25/2021 3:24 PM EST) Chol/HDLC Ratio 3.5 <5.0 (calc) [facility] Cholesterol, Total 214(H) <200 mg/dL [facility] HDL Cholesterol 62 > OR = 40 mg/dL [facility] LDL Cholesterol 130(H) mg/dL (calc) [facility] Comment: Reference range: <100 Desirable range <100 mg/dL for primary prevention; <70 mg/dL for patients with CHD or diabetic patients with > or = 2 CHD risk factors. LDL-C is now calculated using the Chadwick-Hutchison calculation, which is a validated novel method providing better accuracy than the Friedewald equation in the estimation of LDL-C. Chadwick FLORES et al. RACHEAL. 2013;310(19): 5191-5591 (http://Edfolio.Premise/faq/AWU009) Non-HDL Cholesterol 152(H) <130 mg/dL (calc) [facility] Comment: For patients with diabetes plus 1 major ASCVD risk factor, treating to a non-HDL-C goal of <100 mg/dL (LDL-C of <70 mg/dL) is considered a therapeutic option. Triglycerides 108 <150 mg/dL [facility] 07/25/2021 3:24 PM EST us Lori Patel MD LAB BLOOD ORDERABLES Final Res ult [facility] [address] [place] [address], * HEPATITIS C AB W/REFL TO HCV RNA, QN, PCR (06/25/2020 1:37 PM EST) HEPATITIS C ANTIBODY NON-REACT ORIANA NON-REACT ORIANA [facility] INDEX 0.02 <1.00 [facility] Comment: HCV antibody was non-reactive. There is no laboratory evidence of HCV infection. In most cases, no further action is required. However, if recent HCV exposure is suspected, a test for HCV RNA (test code 38956) is suggested. For additional information please refer to http://education.BOOM! Entertainment.Vaultus Mobile/faq/KPJ01r1 (This link is being provided for informational/ educational purposes only.) 06/25/2020 1:37 PM EST us Lori Patel MD HISTORICAL/NON ORDERABLE LABS Final Result [facility] [address] from Last 3 Months or Most Recently Relevant to Health Maintenance Insurance [facility] C3 HSN FULL DENTAL-[facility] MEDICAID STAND ADULT Care Teams Cistern Room Working Supervisor Relationship Specialty Start Date End Date Lori Patel MD [address] [place] [id number] PCP - General Family Medicine 06/17/20
--- OUTSIDE RECORDS SUMMARY | 2025-03-23 09:50 | XMS_ITS | Encounter Summary ---
Author Organization [employer] Address [address] [place] [address] Care Team Providers Care Textile Engraver Name Role Phone Lori Paetl MD Primary Care Provider [phone] Encounter Details Date Type Department Care Team (Latest Contact Info) Description 03/13/2022 Abstract [facility] CONVERSIONS Dental, Provider, DDS Social History Tobacco Use Types Packs/Day Years Used Date Smoking Tobacco: Never Assessed Sex and Gender Information Value Date Recorded Sex Assigned at Male 04/06/2022 10:37 AM EDT Legal Sex Male 10:37 AM EDT Gender Identity Male 04/06/2022 10:37 AM EDT Sexual Orientation Straight 04/06/2022 10 :37 AM EDT documented as of this encounter Plan of Treatment Not on file documented as of this encounter Visit Diagnoses Not on filedocumented in this encounter Care Teams Textile Engraver Relationship Specialty Start Date End Date Lori Patel MD [address] [place] [id number] PCP - General Family Medicine 06/17/20 documented as of this encounter
--- OUTSIDE RECORDS SUMMARY | 2025-03-23 09:50 | XMS_ITS | Encounter Summary ---
Author Organization [employer] Address [address] [place] [address] Care Team Providers Care Agricultural Education Professor Name Role Phone Lori Patel MD Primary Care Provider [phone] Encounter Details Date Type Department Care Team (Latest Contact Info) Description 03/20/2025 Travel Social History Tobacco Use Types Packs/Day Years [...] Diagnoses Not on filedocumented in this encounter Additional Health Concerns Assessment Noted Time PHQ-9 Depression Total Score: 7 04/28/20 24 2:32 PM EST documented as of this encounter Care Teams Agricultural Education Professor Relationship Specialty Start Date End Date Lori Patel MD [address] [place] [id number] PCP - General Family Medicine 06/17/20 documented as of this encounter
--- OUTSIDE RECORDS SUMMARY | 2025-03-23 09:50 | XMS_ITS | Encounter Summary ---
Author Organization [employer] Address [address] [place] [address] Care Team Providers Care Sterile Processing Technician Name Role Phone Lori Patel MD Primary Care Provider [phone] Encounter Details Date Type Department Care Team ([facility] Contact Info) Description 02/09/2023 Orders Only [facility] [address] [place] [address] Provider, MD Joleen Social History Tobacco Use Types Packs/Day Years Used Date Smoking Tobacco: Never Smokeless Tobacco: Never Sex and Gender Information Value Date Recorded Sex Assigned at Male 04/06/2022 10:37 AM EDT Legal Sex Male 10:37 AM EDT Gender Identity Male 04/06/2022 10:37 AM EDT Sexual Orientation Straight 04/06/2022 10 :37 AM EDT documented as of this encounter Plan of Treatment Not on file documented as of this encounter Procedures Procedure Name Priority Date/Time Associated Diagnosis Comments COVID-19 ID NOW (ARCHER) Routine 03/18/2023 8:30 PM EDT CBC WITH AUTO DIFFERENTIAL Routine 03/18/2023 2:59 PM EDT LIPASE Routine 03/18/2023 2:59 PM EDT COMPREHENSIVE METABOLIC PANEL Routine 03/18/2023 2:[address] ABDOMEN PELVIS W CONTRAST Routine 02/22/2023 11:27 PM EDT CBC WITH AUTO DIFFERENTIAL Routine 02/22/2023 10:27 PM EDT URINALYSIS WITH REFLEX MICROSCOPIC Routine 02/22/2023 10:27 PM EDT SARS COV2/INFLUENZA A/B AND RSV RNA QL NAAT Routine 02/22/2023 7:17 PM EDT CBC WITH AUTO DIFFERENTIAL Routine 02/22/2023 7:17 PM EDT MAGNESIUM Routine 02/22/2023 7:17 PM EDT LIPASE Routine 02/22/2023 7:17 PM EDT HEPATIC FUNCTION PANEL Routine 7:17 PM EDT BASIC METABOLIC PANEL Routine 02/22/2023 7:17 PM EDT HM COLONOSCOPY Routine 08/13/2021 documented in this encounter Results * COVID-19 ID NOW (R-B Acquisition) (03/18/2023 8:30 PM EDT) IDNOW SERIAL# [id number] [facility] COVID-19 TEST Negative Negative [facility] COVID-19 NOTE See Note [facility] Comment: Results are for the identification of SARS-CoV2 RNA. TheSARS-CoV2 RNA is generally detectable in respiratory samplesduring the acute phase of infection. Positive results areindicative of the presence of SARS-CoV-2 RNA; clinicalcorrelation with patient history and other diagnosticinformation is necessary to determine patient infectionstatus. Positive results do not rule out bacterial infectionor co- infection with other viruses.Testing facilities within the [place] and itsterritories are required to report all positive results tothe appropriate public health authorities.Negative results should be treated as presumptive and, ifinconsistent with clinical signs and symptoms or necessaryfor patient management, should be tested with differentauthorized or cleared molecular tests. Negative results donot preclude SARS-CoV2 RNA infection and should not be usedas the sole basis for patient management decisions. Negativeresults should be considered in the context of a patient'srecent exposures, history and the presence of clinical signsand symptoms consistent with COVID-19.This test has been authorized by the FDA under an EmergencyUse Authorization (EUA) for use by authorized laboratories.Testing performed on the [employer] ID NOW utilizing NAAT. 03/18/2023 8:30 PM EDT 03/18/2023 8:32 PM EDT [facility] Exter nal Provider LAB MOLECULAR DIAGNOSTICS ORDERABLES Final Result Performing Organization Address City/[facility]/ZIP Co de Phone Number [facility] [address] [place] [phone] * Lipase (03/18/2023 2:59 PM EDT) Pathologist [facility] [place] Lipase 16 8 - 78 U/L [facility] 03/18/2023 2:59 PM EDT 03/18/2023 3:02 PM EDT Generic External Data Provider LAB BLOOD ORDERAB LES Final Result Performing Organization Address [facility]/ZIP Co de Phone Number [facility] [address] [place] [phone] * Comprehensive Metabolic Panel (03/18/2023 2:59 PM EDT) Sodium 138 135 - 145 mmol/L [facility] Potassium 4.7 3.3 - 5.1 mmol/L [facility] Chloride 102 96 - 108 mmol/L [facility] Carbon Dioxide 28 22 - 29 mmol/L [facility] Anion Gap 13 12 - 20 [facility] Urea Nitrogen (BUN) 9 9 - 16 mg/dL [facility] Creatinine, Serum 0.89 0.5 - 1.4 mg/dL [facility] Creatinine Clr Calc Pharmacy 91.5 [facility] Comment:eGFR (calculated fro m the MDRD study equation) and eCrCl(calculated from the Cockcroft-Gault equation) are based ondifferent parameters and may not yield comparable results.If eCrCl result is absurd, please check patient'sheight/weight. Estimated Glomerular Filt Rate >60 [facility] Comment:NOTE: For -Am erican individuals, multiply the result by 1.210.Chronic Kidney Disease: Estimated GFR < 60 mL/min/1.96b1Zflnwn Kidney Disease: Estimated GFR < 15 mL/min/1.73m2 Glucose 99 60 - 115 mg/dL [facility] Calcium 9.9 8.4 - 10.2 mg/dL [facility] Bilirubin, Total 0.3 0.0 - 1.0 mg/dL [facility] Aspartate Amino Transferase 18 5 - 37 U/L [facility] Alanine Aminotransferase 12 0 - 40 U/L [facility] Total Protein 7.1 6.5 - 8.0 g/dL [facility] Albumin Level 4.0 3.5 - 5.0 g/dL [facility] Alkaline Phosphatase 70 39 - 117 U/L [facility] 03/18/2023 2:59 PM EDT 03/18/2023 3:02 PM EDT [facility] External Provider LAB BLO OD ORDERABLES Final Result [facility] [address] [place] [phone] * (ABNORMAL) CBC auto differential (03/18/2023 2:59 PM EDT) White Blood Count 6.2 4.8 - 10.8 X10*3/uL [facility] Red Blood Count 4.99 4.60 - 5.80 X10*6/uL [facility] Hemoglobin 15.1 14.0 - 18.0 g/dl [facility] Hematocrit 45.4 42.0 - 52.0 % [facility] Mean Corpuscular Volume 91.0 80.0 - 98.0 fL [facility] Mean Corpuscular Hemoglobin 30.3 27.0 - 33.0 pg [facility] Mean Corpuscular HGB Conc 33.3 31.0 - 36.0 g/dl [facility] Red Cell Distribution Width 14.2 11.0 - 16.0 % [facility] Platelet Count 247 160 - 400 X10*3/uL [facility] Mean Platelet Volume 10.0 9.4 - 12.4 fL [facility] Neutrophils Percent Auto 37.9(L) 45 - 73 % [facility] Imm Gran Pct Auto 0.2 0.0 - 0.4 % [facility] Lymphocytes Percent Auto 37.4 20 - 40 % [facility] Monocytes Percent Auto 9.8 2 - 11 % [facility] Eosinophils Percent Auto 14.4(H) 0 - 4 % [facility] Basophils Percent Auto 0.3 0 - 2 % [facility] NRBC Pct Auto 0.0 0.0 - 0.2 /100WBC [facility] Neutrophils Absolute Auto 2.4 2.0 - 8.3 x10*3/uL [facility] Imm Gran Abs Auto 0.01 0.00 - 0.03 X10*3/uL [facility] Lymphocytes Absolute Auto 2.3 1.2 - 4.9 X10*3/uL [facility] Monocytes Absolute Auto 0.6 0.1 - 1.2 X10*3/uL [facility] Eosinophils Absolute Auto 0.9(H) 0.0 - 0.4 X10*3/uL [facility] Basophils Absolute Auto 0.0 0.0 - 0.2 X10*3/uL [facility] NRBC Abs Auto 0.000 0.0 - 0.012 X10*3/uL [facility] 03/18/2023 2:59 PM EDT 03/18/2023 3:02 PM EDT us [facility] External Provider LAB BLO OD ORDERABLES Final Result [facility] [address] [place] [phone] * CT Abdomen Pelvis w/ Contrast (02/22/2023 11:27 PM EDT) Anatomical Region Laterality Modality Body, Pelvis, Abdomen Computed T omography 02/22/2023 11:2 7 PM EDT Narrative 02/22/2023 11:58 PM EDT [address] [address] [address] Scan Report Signed Patient: Carlos [place] MR#: [id number] : 1975 Acct:[id number] Age/Sex: 47 / M ADM Date: 02/22/23 Loc: .ED Attending Dr: Ordering Physician: Wan Acuna MD Date of Service: 02/22/23 Procedure(s): CT abdomen pelvis w IV con Accession Number(s): [id number] cc: Lori Patel; Wan Acuna MD EXAMINATION: CT ABDOMEN AND PELVIS WITH CONTRAST CLINICAL INFORMATION: Left lower quadrant pain COMPARISON: None available. TECHNIQUE: Multidetector volumetric images were obtained from the superior aspect of the liver through the pubic symphysis following administration 85 mL of Omnipaque 350 intravenous contrast. Sagittal and coronal reformatted images were obtained on the technologist's workstation. Oral contrast: No This CT examination was performed using dose optimization techniques as appropriate, variously including the following: *Automated exposure control *Adjustment of mA and/or kV according to patient size (this includes techniques or standardized protocols for targeted exams where dose is matched to indication/reason for exam; i.e. extremities or head) *Use of iterative reconstruction technique DLP: 44 mGy-cm FINDINGS: LUNG BASES: The visualized lung bases are unremarkable. LIVER, GALLBLADDER, AND BILIARY TREE: The liver is normal in size, shape, and attenuation. No focal hepatic lesion or biliary ductal dilatation is present. The gallbladder is unremarkable with no evidence of radiopaque gallstones, gallbladder wall thickening, or obvious pericholecystic inflammatory changes. PANCREAS: Unremarkable. SPLEEN: Unremarkable. ADRENAL GLANDS: Unremarkable. KIDNEYS AND URETERS: The kidneys are normal in size, shape, and attenuation. There is a punctate 2 mm nonobstructing mid right renal calculus. No hydronephrosis, hydroureter, or additional calculi seen. No perinephric stranding. Multiple bilateral benign Bosniak class I renal cysts are noted, the largest measuring 5.3 cm on the left which require no additional imaging or follow-up. No solid renal masses are seen. BLADDER: Unremarkable. GASTROINTESTINAL TRACT: There are moderately extensive colonic diverticula present in the descending colon and distal sigmoid. There is one area in the mid descending colon where there are some very subtle streaky changes in the pericolonic area which could represent some very early diverticulitis. The small and large bowel are otherwise unremarkable. The appendix is unremarkable. ABDOMINAL WALL: No significant hernia is appreciated. LYMPH NODES: Normal. VASCULAR: Unremarkable. PELVIC VISCERA: There is mild BPH. OSSEOUS STRUCTURES: Unremarkable. CT/CT abdomen pelvis w IV con IMPRESSION: 1. Extensive colonic diverticulosis with one area in the mid descending colon where there are some very subtle streaky changes in the pericolonic area which could represent some very early diverticulitis. 2. Other incidental findings as described above including a punctate nonobstructing right renal calculus, bilateral benign Bosniak class I renal cysts which require no additional imaging or follow-up and mild BPH. Fleischner guidelines were followed. Dictated By: Jhonny Akhtar MD Signed By: <Electronically signed by Jhonny Akhtar MD in OV> 02/22/23 2354 DD/ 2327 TD/TT: Shot Blaster: SS Procedure Note Donotuseinterpreter, Image - 02/22/[address] [place] [address] [address] Scan Report Signed Patient: Carlos [place]#: [id number] : 1975Acct:[id number] Age/Sex: 47 / MADM Date: 02/22/23 Loc: HO.ED Attending Dr: Ordering Physician: Wan Acuna MD Date of Service: 02/22/23 Procedure(s): CT abdomen pelvis w IV con Accession Number(s): [id number] cc: Lori Patel; Wan Acuna MD EXAMINATION: CT ABDOMEN AND PELVIS WITH CONTRAST CLINICAL INFORMATION: Left lower quadrant pain COMPARISON: None available. TECHNIQUE: Multidetector volumetric images were obtained from the superior aspect of the liver through the pubic symphysis following administration 85 mL of Omnipaque 350 intravenous contrast. Sagittal and coronal reformatted images were obtained on the technologist's workstation. Oral contrast: No This CT examination was performed using dose optimization techniques as appropriate, variously including the following: *Automated exposure control *Adjustment of mA and/or kV according to patient size (this includes techniques or standardized protocols for targeted exams where dose is matched to indication/reason for exam; i.e. extremities or head) *Use of iterative reconstruction technique DLP: 44 mGy-cm FINDINGS: LUNG BASES: The visualized lung bases are unremarkable. LIVER, GALLBLADDER, AND BILIARY TREE: The liver is normal in size, shape, and attenuation. No focal hepatic lesion or biliary ductal dilatation is present. The gallbladder is unremarkable with no evidence of radiopaque gallstones, gallbladder wall thickening, or obvious pericholecystic inflammatory changes. PANCREAS: Unremarkable. SPLEEN: Unremarkable. ADRENAL GLANDS: Unremarkable. KIDNEYS AND URETERS: The kidneys are normal in size, shape, and attenuation. There is a punctate 2 mm nonobstructing mid right renal calculus. No hydronephrosis, hydroureter, or additional calculi seen. No perinephric stranding. Multiple bilateral benign Bosniak class I renal cysts are noted, the largest measuring 5.3 cm on the left which require no additional imaging or follow-up. No solid renal masses are seen. BLADDER: Unremarkable. GASTROINTESTINAL TRACT: There are moderately extensive colonic diverticula present in the descending colon and distal sigmoid. There is one area in the mid descending colon where there are some very subtle streaky changes in the pericolonic area which could represent some very early diverticulitis. The small and large bowel are otherwise unremarkable. The appendix is unremarkable. ABDOMINAL WALL: No significant hernia is appreciated. LYMPH NODES: Normal. VASCULAR: Unremarkable. PELVIC VISCERA: There is mild BPH. OSSEOUS STRUCTURES: Unremarkable. CT/CT abdomen pelvis w IV con IMPRESSION: 1. Extensive colonic diverticulosis with one area in the mid descending colon where there are some very subtle streaky changes in the pericolonic area which could represent some very early diverticulitis. 2. Other incidental findings as described above including a punctate nonobstructing right renal calculus, bilateral benign Bosniak class I renal cysts which require no additional imaging or follow-up and mild BPH. Fleischner guidelines were followed. Dictated By: Jhonny Akhtar MD Signed By: <Electronically signed by Jhonny Akhtar MD in OV> 02/22/23 2354 DD/ TD/TT: Shot Blaster: SS [facility] External Provider IMG CT PROCEDURES Final Result * Urinalysis w/reflex microscopic (02/22/2023 10:27 PM EDT) Color Urine Yellow [facility] Appearance Urine Turbid [facility] PH 7.5 5.0 - 9.0 [facility] Glucose Urine UA Negative Negative mg/dL [facility] Urine Blood Negative Negative [facility] Specific [place] - Urine 1.020 1.005 - 1.025 [facility] Urine Protein Negative Neg-Trace mg/dL [facility] Urine Ketones Negative Negative mg/dL [facility] Nitrite Urine Negative Negative [facility] Leukocyte Esterase Urine Negative Negative [facility] 02/22/2023 10:2 7 PM EDT 02/22/2023 10:30 PM EDT Narrative [facility] - 02/22/2023 10:37 PM EDT Urine, Clean Catch [facility] External Provider LAB URI NE ORDERABLES Final Result [facility] [address] [place] [phone] * (ABNORMAL) CBC auto differential (02/22/2023 10:27 PM EDT) White Blood Count 7.4 4.8 - 10.8 X10*3/uL [facility] Red Blood Count 4.91 4.60 - 5.80 X10*6/uL [facility] Hemoglobin 14.8 14.0 - 18.0 g/dl [facility] Hematocrit 45.2 42.0 - 52.0 % [facility] Mean Corpuscular Volume 92.1 80.0 - 98.0 fL [facility] Mean Corpuscular Hemoglobin 30.1 27.0 - 33.0 pg [facility] Mean Corpuscular HGB Conc 32.7 31.0 - 36.0 g/dl [facility] Red Cell Distribution Width 13.9 11.0 - 16.0 % [facility] Platelet Count 275 160 - 400 X10*3/uL [facility] Mean Platelet Volume 9.9 9.4 - 12.4 fL [facility] Neutrophils Percent Auto 42.9(L) 45 - 73 % [facility] Imm Gran Pct Auto 0.3 0.0 - 0.4 % [facility] Lymphocytes Percent Auto 33.6 20 - 40 % [facility] Monocytes Percent Auto 8.7 2 - 11 % [facility] Eosinophils Percent Auto 14.2(H) 0 - 4 % [facility] Basophils Percent Auto 0.3 0 - 2 % [facility] NRBC Pct Auto 0.0 0.0 - 0.2 /100WBC [facility] Neutrophils Absolute Auto 3.2 2.0 - 8.3 x10*3/uL [facility] Imm Gran Abs Auto 0.02 0.00 - 0.03 X10*3/uL [facility] Lymphocytes Absolute Auto 2.5 1.2 - 4.9 X10*3/uL [facility] Monocytes Absolute Auto 0.6 0.1 - 1.2 X10*3/uL [facility] Eosinophils Absolute Auto 1.1(H) 0.0 - 0.4 X10*3/uL [facility] Basophils Absolute Auto 0.0 0.0 - 0.2 X10*3/uL [facility] NRBC Abs Auto 0.000 0.0 - 0.012 X10*3/uL [facility] 02/22/2023 10:2 7 PM EDT 02/22/2023 10:30 PM EDT [facility] External Provider LAB BLO OD ORDERABLES Final Result Performing Organization Address [facility] Co de Phone Number [facility] [address] [place] [phone] * SARS-CoV-2 RNA, Influenza A/B, and RSV RNA, Ql NAAT (02/22/2023 7:17 PM EDT) Influenza A PCR NEGATIVE Negative [facility] Influenza B PCR NEGATIVE Negative [facility] Resp Syncy Virus RNA Qual PCR NEGATIVE Negative [facility] SARS COV2 PCR NEGATIVE Negative [facility] Comment:All test results mus t be correlated with clinical findings.Negative results do not preclude SARS-CoV2, influenza Avirus, influenza B virus and/or RSV infectionand should not be used as the sole basis for treatment orother patient management decisions. Negative results must becombined with clinical observations, patient history, andepidemiological information.This test has not been evaluated for monitoring treatment ofinfection.This test has been authorized by the FDA under an EmergencyUse Authorization (EUA) for use by authorized laboratories.Testing performed on the [employer] GeneXpert utilizingreal-time RT-PCR.All SARS CoV2 and positive influenza A/B results arereported to [facility]. 02/22/2023 7:17 PM EDT 02/22/2023 7:20 PM EDT [facility] Exter nal Provider LAB MICROBIOLOGY - GENERAL ORDERABLES Final Result Performing Organization Address [facility]/ZIP Co de Phone Number [facility] [address] [place] [phone] * Lipase (02/22/2023 7:17 PM EDT) Lipase 22 8 - 78 U/L [facility] 02/22/2023 7:17 PM EDT 02/22/2023 7:20 PM EDT us Generic External Data Provider LAB BLOOD ORDERAB LES Final Result Performing Organization Address City/[facility]/ZIP Co de Phone Number [facility] [address] [place] [phone] * Magnesium (02/22/2023 7:17 PM EDT) Pathologist [facility] Magnesium 2.4 1.6 - 2.6 mg/dL [facility] 02/22/2023 7:17 PM EDT 02/22/2023 7:20 PM EDT Generic External Data Provider LAB BLOOD ORDERAB LES Final Result Performing Organization Address [facility] Co de Phone Number [facility] [address] [place] [phone] * (ABNORMAL) Basic Metabolic Panel (02/22/2023 7:17 PM EDT) Pathologist [facility] [place] Sodium 138 135 - 145 mmol/L [facility] Potassium 4.8 3.3 - 5.1 mmol/L [facility] Chloride 106 96 - 108 mmol/L [facility] Carbon Dioxide 28 22 - 29 mmol/L [facility] Anion Gap 9(L) 12 - 20 [facility] Urea Nitrogen (BUN) 12 9 - 16 mg/dL [facility] Creatinine, Serum 1.00 0.5 - 1.4 mg/dL [facility] Creatinine Clr Calc Pharmacy 90.3 [facility] Comment:eGFR (calculated fro m the MDRD study equation) and eCrCl(calculated from the Cockcroft-Gault equation) are based ondifferent parameters and may not yield comparable results.If eCrCl result is absurd, please check patient'sheight/weight. Estimated Glomerular Filt Rate >60 [facility] Comment:NOTE: For -Am erican individuals, multiply the result by 1.210.Chronic Kidney Disease: Estimated GFR < 60 mL/min/1.93w9Rklang Kidney Disease: Estimated GFR < 15 mL/min/1.73m2 Glucose 98 60 - 115 mg/dL [facility] Calcium 9.4 8.4 - 10.2 mg/dL [facility] 02/22/2023 7:17 PM EDT 02/22/2023 7:20 PM EDT Generic External Data Provider LAB BLOOD ORDERAB LES Final Result Performing Organization Address [facility] Co de Phone Number [facility] [address] [place] [phone] * Hepatic Function Panel (02/22/2023 7:17 PM EDT) Pathologist [facility] [place] Bilirubin, Total 0.2 0.0 - 1.0 mg/dL [facility] Bilirubin, Direct <0.2 0.0 - 0.5 mg/dL [facility] Aspartate Amino Transferase 17 5 - 37 U/L [facility] Alanine Aminotransferase 11 0 - 40 U/L [facility] Total Protein 7.0 6.5 - 8.0 g/dL [facility] Albumin Level 3.9 3.5 - 5.0 g/dL [facility] Alkaline Phosphatase 65 39 - 117 U/L [facility] 02/22/2023 7:17 PM EDT 02/22/2023 7:20 PM EDT [facility] External Provider LAB BLO OD ORDERABLES Final Result Performing Organization Address [facility] Co de Phone Number [facility] [address] [place] [phone] * (ABNORMAL) CBC auto differential (02/22/2023 7:17 PM EDT) Pathologist [facility] White Blood Count 7.3 4.8 - 10.8 X10*3/uL [facility] Red Blood Count 4.75 4.60 - 5.80 X10*6/uL [facility] Hemoglobin 14.5 14.0 - 18.0 g/dl [facility] Hematocrit 43.9 42.0 - 52.0 % [facility] Mean Corpuscular Volume 92.4 80.0 - 98.0 fL [facility] Mean Corpuscular Hemoglobin 30.5 27.0 - 33.0 pg [facility] Mean Corpuscular HGB Conc 33.0 31.0 - 36.0 g/dl [facility] Red Cell Distribution Width 13.8 11.0 - 16.0 % [facility] Platelet Count 276 160 - 400 X10*3/uL [facility] Mean Platelet Volume 9.7 9.4 - 12.4 fL [facility] Neutrophils Percent Auto 38.6(L) 45 - 73 % [facility] Imm Gran Pct Auto 0.1 0.0 - 0.4 % [facility] Lymphocytes Percent Auto 38.2 20 - 40 % [facility] Monocytes Percent Auto 8.1 2 - 11 % [facility] Eosinophils Percent Auto 14.9(H) 0 - 4 % [facility] Basophils Percent Auto 0.1 0 - 2 % [facility] NRBC Pct Auto 0.0 0.0 - 0.2 /100WBC [facility] Neutrophils Absolute Auto 2.8 2.0 - 8.3 x10*3/uL [facility] Imm Gran Abs Auto 0.01 0.00 - 0.03 X10*3/uL [facility] Lymphocytes Absolute Auto 2.8 1.2 - 4.9 X10*3/uL [facility] Monocytes Absolute Auto 0.6 0.1 - 1.2 X10*3/uL [facility] Eosinophils Absolute Auto 1.1(H) 0.0 - 0.4 X10*3/uL [facility] Basophils Absolute Auto 0.0 0.0 - 0.2 X10*3/uL [facility] NRBC Abs Auto 0.000 0.0 - 0.012 X10*3/uL [facility] 02/22/2023 7:17 PM EDT 02/22/2023 7:20 PM EDT [facility] External Provider LAB BLO OD ORDERABLES Final Result [facility] [address] [place] [phone] * Hm Colonoscopy (08/13/2021) Historical Provider HEALTH MAINTENANCE Final Result documented in this encounter Visit Diagnoses Not on filedocumented in this encounter Care Teams Sterile Processing Technician Relationship Specialty Start Date End Date Lori Patel MD [address] [place] [phone] PCP - General Family Medicine 06/17/20 documented as of this encounter
--- OUTSIDE RECORDS SUMMARY | 2025-03-23 09:50 | XMS_ITS | Encounter Summary ---
Author Organization [employer] Address [address] [place] [address] Care Team Providers Care Credit Collection Associate Name Role Phone Lori Patel MD Primary Care Provider [phone] Encounter Details Date Type Department Care Team (Latest Contact Info) Description 11/21/2020 Abstract [facility] CONVERSION[facility] Dental, Provider, DDS Social [...] on filedocumented in this encounter Care Teams Credit Collection Associate Relationship Specialty Start Date End Date Lori Patel MD [address] [place] [address] PCP - General Family Medicine 06/17/20 documented as of this encounter
--- OUTSIDE RECORDS SUMMARY | 2025-03-23 09:50 | XMS_ITS | Encounter Summary ---
Author Organization [employer] Address [address] [place] [address] Care Team Providers Care Soyfreeze Operator Name Role Phone Lori Patel MD Primary Care Provider [phone] Encounter Details Date Type Department Care Team (Latest Contact Info) Description 03/21/2025 Travel Social History Tobacco Use Types Packs/Day [...] documented as of this encounter Care Teams Soyfreeze Operator Relationship Specialty Start Date End Date Lori Patel MD [address] [place] [id number] PCP - General Family Medicine 06/17/20 documented as of this encounter
--- OUTSIDE RECORDS SUMMARY | 2025-03-23 09:50 | XMS_ITS | Clinical Summary ---
Author Organization [facility] Address [address] [place] [address] Phone Care Team Providers Care Hammerer Helper Name Role Phone Pcp, Unknown Primary Care Provider Unavailabl e Allergies Active Allergy Reactions Criticality Noted Date Comments Aspirin Swelling 04/20/2024 facial Social History Tobacco Use Types Packs/Day Years Used Date Smoking Tobacco: Never Smokeless Tobacco: Never Tobacco Cessation:Counseling Given: Not Answered Alcohol Use Standard Drinks/Week Comments Not Currently 0 (1 standard drink = 0.6 oz pur e alcohol) Education Answer Date Recorded Are you interested in more education? Not on diallo e 04/20/2024 Are you concerned about learning? Not on file 04/20/2024 No 04/20/2024 No 04/20/2024 Digital Access Answer Date Recorded No 04/20/2024 No 04/20/2024 Reliable internet access at home? Not on file 04/20/2024 Device with a working camera? Not on file Intimate Partner Violence Answer Date R ecorded Are you denied basic needs s uch as food, clothing, or medical care? No 04/20/2024 In the past 12 months have y ou been in a relationship with a person who hurts, threatens, or tries to control you? No 04/20/2024 Are you denied basic needs s uch as food, clothing, or medical care? No 04/20/2024 In the past 12 months have y ou been in a relationship with a person who hurts, threatens, or tries to control you? No 04/20/2024 Sex and Gender Information Value Date Recorded Sex Assigned at Male 04/20/2024 2:48 PM EST Legal Sex Male 1:51 PM EST Gender Identity Male 04/20/2024 2:48 PM EST Sexual Orientation Don't know 04/20/2024 2: 48 PM EST Last Filed Vital Signs Vital Sign Reading Time Taken Comments Blood Pressure 125/81 04/20/2024 5:02 PM EST Pulse 53 04/20/2024 5:02 PM EST Temperature 36.2 C (97.2 F) 04/20/2024 5:02 PM EST Respiratory Rate 16 04/20/2024 5:02 PM EST Oxygen Saturation 100% 04/20/2024 5:02 PM EST Inhaled Oxygen Concentration - - Weight 79.4 kg (175 lb) 04/20/2024 2:03 PM EST Height 167.6 cm (5' 6 ) 04/20/2024 2:03 PM EST Body Mass Index 28.25 04/20/2024 2:03 PM EST Plan of Treatment Health Maintenance Due Date Last Done Comments DEPRESSION SCREENING 1986 HIV ONE-TIME SCREENING (18-6 5 YEARS) 1992 COLOGUARD 2019 COLONOSCOPY 2019 COLORECTAL CANCER SCREENING 2019 FIT TEST 2019 FOBT 2019 SIGMOIDOSCOPY 2019 VIRTUAL COLONOSCOPY 2019 PNEUMOCOCCAL VACCINES (50+ years) (1 of 1 - PCV) 2024 ZOSTER VACCINES (1 of 2) 2024 INFLUENZA VACCINE (#1) 2025 COVID-19 VACCINE ( - 2024-2 6 season) 2025 LIPID PANEL 07/25/2026 07/25/2021, 05/19/2018 SCREENING FOR DIABETES 04/20/2027 04/20/2024 Adult Td,Tdap Booster 07/25/2031 07/25/2021 RSV VACCINE (1 - 1-dose 75+ series) 2049 HEPATITIS C SCREENING Completed 05/18/2018 SMOKING STATUS SCREENING (On ce After 26 Yrs) Completed 04/20/2024 HEPATITIS A VACCINES Aged Out No long er eligible based on patient's age to complete this topic HIB VACCINES Aged Out No longer eligi ble based on patient's age to complete this topic MENINGOCOCCAL VACCINES (ACWY) Aged Out No longer eligible based on patient's age to complete this topic MENINGOCOCCAL VACCINES (B) Aged Out N o longer eligible based on patient's age to complete this topic Medical Devices Not on file Insurance C3 ACO C3 ACO C3 ACO C3 ACO C3 ACO C3 ACO Care Teams Hammerer Helper Relationship Specialty Start Date End Date Pcp, Unknown PCP - General 04/20/24 Additional Source Comments The information contained in this document represents components of the legal health record. It is not the complete legal health record.[facility]
--- OUTSIDE RECORDS SUMMARY | 2025-03-23 09:50 | XMS_ITS | Patient Health Record ---
Author Organization [facility] Address [address] [place] [id number] Care Team Providers Care Human Service Coordinator Name Role Phone Lori Patel M.D. Primary Care Provider Henok Krishna Jr Unavailable Allergies Allergen (clinical drug ingredient) Drug/Non Drug Allergy documented on EMR Reaction Allergy Type Onset Date Status aspirin Aspirin Unknown Drug Allergy Active Reason For Referral No Information Medications Medication SIG (Take, Route, Fr equency, Duration) Notes Start Date End Date Status Ondansetron 4 MG DISSOLVE 1 TABLET BY MOUTH EVERY 8 HOURS NEEDED FOR NAUSEA AND VOMITING Oral; Duration: 7 Active Omeprazole 20 MG TAKE [address] [facility] TWICE A DAY FOR 2 WEEKS Oral; Duration: 14 Active Diclofenac Sodium 1 % APPLY 2 GRAM BY TO PICAL ROUTE 4 TIMES EVERY DAY TO THE AFFECTED AREA(S) External; Duration: 30 Active Carafate 1 GM/10ML TAKE 10MLS BY MOUTH TWICE DAILY FOR 7 DAYS Oral; Duration: 7 Active Immunizations Vaccine Route Administration Date Status Comme nts Influenza Unknown 03/26/2021 Administered Influenza Unknown 03/09/2023 Administered Social History Tobacco Use: Social History Observation Description Date Details (start date - stop date) Never Smoker NA - NA Tobacco Use/Smoking Question Answer Notes Patient is a nonsmoker Alcohol Screen Question Answer Notes Did you have a drink containing alcohol in the p ast year? 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) use of non-steroidal anti-inflammat ories (NSAID) (Z79.1) Active confirmed Problem Family history of malignant neoplasm of gastrointestinal tract (544461575) FH: colon cancer (Z80.0) Active confirmed Problem Nausea and vomiting (56667300) Nausea and vomiting, unspecified vomiting type (R11.2) Active confirmed Plan Of Treatment Future Test Test Name Order Date COLONOSCOPY 08/04/2021 UPPER GI ENDOSCOPY 03/29/2023 Insurance Providers Payer Name Payer Address Payer Phone Subscriber Number Group Number Insured Name Patient Relationship to Insured Coverage Start Date Coverage End Date [facility] [address] [place] [phone] [id number] DARYL BILL Self - patient is the insured Medical (General) History Medical History History ICD Code Left shoulder pain Onychomycosis Colonoscopy 08/26, normal, five-year foll owup Surgical History Surgery Date(Month/Year) carpal tunnel
--- OUTSIDE RECORDS SUMMARY | 2025-03-23 09:50 | XMS_ITS | Clinical Summary ---
Author Organization [facility] Address [address] [place] [address] Care Team Providers Care Catalogue Clerk Name Role Phone Unavailable Primary Care Provider Unavailabl e Source Comments PLEASE NOTE, if this patient is a minor, it may be UNLAWFUL to discuss sensitive information that is contained in these records (such as FAMILY PLANNING, MENTAL HEALTH or SUBSTANCE ABUSE) with the minor patient's parent or other person without the patient's specific authorization.[facility] Allergies Active Allergy Reactions Criticality Noted Date Comments Aspirin 05/19/2018 Medications No known medications Active Problems Problem Noted Date Diagnosed Date Prediabetes 05/19/2018 Social History Tobacco Use Types Packs/Day Years Used Date Smoking Tobacco: Never Smokeless Tobacco: Never Alcohol Use Standard Drinks/Week Comments No 0 (1 standard drink = 0.6 oz pur e alcohol) Social Connections Answer Date Recorded Social Connections and Isolation 0 01/30/2019 Financial Resource Strain Answer Date R ecorded Financial Resource Strain 0 2018 Stress Answer Date Recorded Stress 0 01/30/2019 Physical Activity Answer Date Recorded Physical Activity 0 01/30/2019 Food Insecurity Answer Date Recorded Food 0 01/30/2019 Transportation Needs Answer Date Record ed Transportation 0 01/30/2019 Housing Stability Answer Date Recorded Housing 0 01/30/2019 Safety and Environment Answer Date Percy rded Safety 0 01/30/2019 Utilities Answer Date Recorded Utilities 0 01/30/2019 Employment Answer Date Recorded Employment 0 01/30/2019 Sex and Gender Information Value Date Recorded Sex Assigned at Not on file Legal Sex Male 5:15 AM PST Gender Identity Not on file Sexual Orientation Not on file Last Filed Vital Signs Vital Sign Reading Time Taken Comments Blood Pressure 100/56 05/19/2018 6:18 PM EST Pulse 67 05/19/2018 6:18 PM EST Temperature 36.7 C (98 F) 05/19/2018 6:18 PM EST Respiratory Rate 18 05/19/2018 6:18 PM EST Oxygen Saturation - - Inhaled Oxygen Concentration - - Weight 78.9 kg (174 lb) 05/19/2018 6:18 PM EST Height 162.2 cm (5' 3.86 ) 05/19/2018 6:18 PM ES T Body Mass Index 30 05/19/2018 6:18 PM EST Plan of Treatment Not on file Insurance [employer] Member Subscriber Plan / Payer (Ef fective 2018-Present) Name:Carlos Downing Relation to Subscriber:Self Name:Carlos Downing Payer ID:[id number] Type:[employer] Address: [facility] [address] [place] [address]
--- OUTSIDE RECORDS SUMMARY | 2025-03-23 09:50 | XMS_ITS | Encounter Summary ---
Author Organization [employer] Address [address] [place] [address] Care Team Providers Care Cement Loader Name Role Phone Lori Patel MD Primary Care Provider [phone] Encounter Details Date Type Department Care Team ([facility] st Contact Info) Description 02/05/2023 Abstract [facility] [address] [place] [address] Nora Shaver Social History Tobacco Use Types Packs/Day Years [...] on filedocumented in this encounter Care Teams Cement Loader Relationship Specialty Start Date End Date Lori Patel MD [address] [place] [address] PCP - General Family Medicine 06/17/20 documented as of this encounter
== END 2025-03-23 09:05 | disposition home or self-care (01) ==
LOC: HO.HHCL 09:04
PROVIDERS: PCP General Practice; Visit Provider General Practice
DX: R10.13 Epigastric pain (principal)
CPT/HCPCS: 87338

== ENCOUNTER 2025-04-03 17:54 | Emergency (ER) | payer MEDICAID, SELFPAY ==
[2025-04-03 18:00] VITALS: BP 134/69; PULSE 55; RESP 18; TEMP 36.4; O2SAT 100; BMI 26.9
--- NOTE | 2025-04-03 18:06 | ECG_ITS ---
Test Reason : ABDOMINAL PAIN Blood Pressure : */* mmHG Vent. Rate : 49 BPM Atrial Rate : 49 BPM P-R Int : 140 ms QRS Dur : 88 ms QT Int : 426 ms P-R-T Axes : 25 27 22 degrees QTcB Int : 384 ms Sinus bradycardia Otherwise normal ECG When compared with ECG of 14-Mar-2024 07:13, No significant change was found Referred By: Dominic Rosen Electronically Signed By: FRANKLYN FOWLER
--- NOTE | 2025-04-03 18:08 | ED_ITS ---
HPI - General Adult General Chief complaint: Abdominal Pain Stated complaint: Abdominal pain/Nauseas Time Seen by Provider: 04/03/25 18:59 History of Present Illness ED Provider: Javier Dallas MD HPI narrative: 49-year-old male who presents with abdominal pain in the epigastrium described as burning worse with greasy fatty spicy foods ongoing for weeks. He has been on PPI does not feel like it has helped. Occasional vomitus sensation in the back of the throat. No active vomiting currently. Denies fever no right upper quadrant pain moving his bowels he is able to eat pain gets worse at night Related Data Home Medications ?Medication ?Instructions ?Recorded ?Confirmed acetaminophen 325 mg capsule 325 mg PO QID PRN Pain 05/12/22 Previous Rx's ?Medication ?Instructions ?Recorded betamethasone dipropionate 0.05 % 1 appl topical BID 4 weeks #15 04/02/22 topical ointment grams albuterol sulfate 90 mcg/actuation 2 puff inhalation Q ID PRN 03/14/24 aerosol inhaler shortness of breath or wheez ing #6.7 grams azithromycin 250 mg tablet See Rx Instructions PO .COM PLEX #6 03/14/24 tabs prednisone 20 mg tablet 40 mg (2 x 20 mg) PO DAILY 5 days 03/14/24 #10 tabs valacyclovir 1 gram tablet 1,000 mg PO TID 7 days #21 tabs 11/26/24 Allergies Allergy/AdvReac Type Severity Reaction Status Date / Time aspirin AdvReac eye Verified 04/03/25 18:04 swelling, and face swelling PMFSH Past Medical History Medical History COVID-19 vaccine series completed History of COVID-19 Onychomycosis Surgical History History of carpal tunnel release H/O colonoscopy Social History Social History Alcohol intake: never Patient Tobacco Use Status: Never used Tobacco Smoked in Last 30 Days: No Use of substances other than those prescribed or required for medical reasons: No Advance Directives: No Advance Directives Information Provided: No Current occupational status: employed 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 Head: Atraumatic Eyes: Anicteric, Normal conjunctiva. ENT: Moist mucosa, no pallor. ? Neck: Supple. Skin: ?No observable rash or bruising on exposed or examined skin Respiratory: Breathing comfortably, No distress.Clear to auscultation bilaterally, symmetric chest expansion, No wheeze, rales, ronchi. Cardiovascular: Regular rate and rhythm. No murmurs or rub. Well perfused periphery, warm extremities. No edema. ? Abdominal: Mild epigastric tenderness. Soft, no objective distension. No palpable masses or obvious organomegaly. ?No guarding, no rebound tenderness or other peritoneal findings. : No flank tenderness. Neuro: Alert. Gross movement of all extremities intact. ? Psych: Calm. Cooperative. MSK: No grossly visible deformity. Vital signs: See flowsheet Vital Signs: Vital Signs - 24 hr 04/03/25 18:00 04/03/25 19:31 04/03/25 19:53 Temperature 97.6 F 98.1 F Pulse Rate 55 52 52 Respiratory Rate 18 16 16 Blood Pressure 134/69 115/70 115/70 Pulse Oximetry 100 98 98 Oxygen Delivery Method Room Air Room Air BMI result Body Mass Index 26.9 Course Course Course Narrative: RME: 49-year-old male presents to ED for epigastric abdominal pain with nausea and vomiting for the past 2 weeks but worse over the past 3 days. Patient states history of acid reflux. Labs EKG ordered Medications Administered Discontinued Medications Generic Name Dose Route Start Last Admin Trade Name Freq PRN Reason Stop Dose Admin Al Hydroxide/Mg Hydroxide 30 ml 04/03/25 19:26 04/03/25 19:39 Magnesium Hydrox/Alum Hydrox 30 Ml Oral.Susp PO 04/03/25 19:27 30 ml ONCE ONE Administration Famotidine 20 mg 04/03/25 19:26 04/03/25 19:39 Famotidine 20 Mg Tablet PO 04/03/25 19:27 20 mg ONCE ONE Administration Pantoprazole Sodium 40 mg 04/03/25 19:26 04/03/25 19:39 Pantoprazole Sodium 40 Mg/10 Ml Vial IVPUSH 04/03/25 19:27 40 mg ONCE ONE Administration Medical Decision Making Medical Decision Making MDM Narrative: Medical Decision Makin-year-old male with chronic recurrent epigastric discomfort burning in the throat and belching and nausea. One episode nonbloody nonbilious vomiting today. No GI bleeding. Says PCP tested him with a fecal test for H pylori unsure of the resolved. He has been on omeprazole no relief. These symptoms going on at least 2 weeks. No chest pain no difficulty breathing no leg swelling denies fever or chills. He is a nondrinker no smoker no surgical history looks well here really no significant substantial tenderness on examination. He is not jaundice. Lipase negative chemistry and CBC reassuring. Empiric treatment for PUD/gastritis no right upper quadrant pain/tenderness or other clinical suggestion of biliary pathology. Topical and PPI in the ED Preliminary Favored Differential Diagnosis: GERD, PUD, pancreatitis, less likely biliary pathology among additional considered etiologies Testing Interpreted Independently: ?Sinus bradycardia rate 49 QTC 384 Radiology or Lab testing Results Reviewed: ?See below for details Consults: ?See below for details Independent Historians/External Chart Reviews: ?See below for details Social Determinants of Health Impacting MDM/Planning: ?See below for details Lab Data MDM Lab Attestation statement: I reviewed the patient's lab results. 04/03/25 18:28 04/03/25 18:28 Labs: Lab Results 04/03/25 Range/Units 18:28 WBC 6.2 (4.8-10.8) X10*3/uL RBC 4.95 (4.60-5.80) X10*6/uL Hgb 15.0 (14.0-18.0) g/dl Hct 45.5 (42.0-52.0) % MCV 91.9 (80.0-98.0) fL MCH 30.3 (27.0-33.0) pg MCHC 33.0 (31.0-36.0) g/dl RDW 14.4 (11.0-16.0) % Plt Count 268 (160-400) X10*3/uL MPV 9.4 (9.4-12.4) fL Immature Gran % (Auto) 0.2 (0.0-0.4) % Neut % (Auto) 42.5 L (45-73) % Lymph % (Auto) 34.2 (20-40) % Payette % (Auto) 10.0 (2-11) % Eos % (Auto) 12.8 H (0-4) % Baso % (Auto) 0.3 (0-2) % Lymph # (Auto) 2.1 (1.2-4.9) X10*3/uL Payette # (Auto) 0.6 (0.1-1.2) X10*3/uL Eos # (Auto) 0.8 H (0.0-0.4) X10*3/uL Baso # (Auto) 0.0 (0.0-0.2) X10*3/uL Abs Immat Gran (auto) 0.01 (0.00-0.03) X10*3/uL Absolute Neuts (auto) 2.6 (2.0-8.3) x10*3/uL Absolute Nucleated RBC 0.000 (0.0-0.012) X10*3/uL Nucleated RBC % (auto) 0.0 (0.0-0.2) /100WBC PT 10.8 L (10.9-12.4) SEC INR 0.9 (0.9-1.1) APTT 32.5 (26.7-34.1) SEC Sodium 142 (135-145) mmol/L Potassium 4.7 (3.3-5.1) mmol/L Chloride 108 (96-108) mmol/L Carbon Dioxide 30 H (22-29) mmol/L Anion Gap 9 L (12-20) BUN 15 (9-16) mg/dL Creatinine 0.94 (0.5-1.4) mg/dL Estim Creat Clear Calc 87.8 Estimated GFR > 60 Random Glucose 99 (60-115) mg/dL Calcium 8.8 D (8.4-10.2) mg/dL Total Bilirubin 0.3 (0.0-1.0) mg/dL AST 25 (5-37) U/L ALT 29 (0-40) U/L Alkaline Phosphatase 78 (39-117) U/L Troponin I High Sens < 2.7 (<3.5-35.0) ng/L Total Protein 7.0 (6.5-8.0) g/dL Albumin 4.2 (3.5-5.0) g/dL Lipase 31 (8-78) U/L Discharge Plan Discharge Clinical Impression: Abdominal pain, epigastric Patient Disposition: Home, Self-Care Instructions: Epigastric Pain (ED) Additional Instructions: In the ED today you were evaluated for epigastric abdominal pain 1 episode of nausea. You had no tenderness on your abdominal exam. You had lab work including pancreas liver kidney testing and electrolytes blood counts all which was reassuring. You received Maalox famotidine and an intravenous antacid medication. You need close follow up with your PCP unlikely GI referral avoid any spicy or fatty or greasy foods which has been provoking your pain. Prescriptions: No Action azithromycin 250 mg tablet See Rx Instructions .ROUTE .COMPLEX Qty: 6 0RF Rx Instructions: For 250 mg dose pack: take 500 mg today (day 1), then 250 mg for 4 days (days 2-5) prednisone 20 mg tablet 40 mg PO DAILY 5 Days Qty: 10 0RF albuterol sulfate 90 mcg/actuation HFA aerosol inhaler 2 puff inhalation QID PRN (Reason: shortness of breath or wheezing) Qty: 6.7 0RF valacyclovir 1 gram tablet 1,000 mg PO TID 7 Days Qty: 21 0RF acetaminophen 325 mg capsule 325 mg PO QID PRN (Reason: Pain) betamethasone dipropionate 0.05 % ointment 1 appl topical BID 28 Days Qty: 15 0RF Rx Instructions: Thin coat 2 times per day Interventions: ED Discharge Assessment Last Done: 04/03/25 19:53 Discharge Date/Time: 04/03/25 19:57 Print Language: Cameroonian
[2025-04-03 18:41] LABS: MANUAL DIFF FLAG NO
[2025-04-03 18:54] LABS: INTERNATIONAL NORM RATIO 0.9 (0.9-1.1); Prothrombin Time 10.8 SEC (10.9-12.4)
[2025-04-03 18:56] LABS: Partial Thromboplastin Time 32.5 SEC (26.7-34.1)
[2025-04-03 18:58] LABS: Alanine Aminotransferase 29 U/L (0-40); Albumin Level 4.2 g/dL (3.5-5.0); Alkaline Phosphatase 78 U/L (39-117); Anion Gap 9 (12-20); Aspartate Amino Transferase 25 U/L (5-37); Blood Urea Nitrogen 15 mg/dL (9-16); Calcium 8.8 mg/dL (8.4-10.2); Carbon Dioxide 30 mmol/L (22-29); Chloride 108 mmol/L (96-108); Creatinine Clr Calc Pharmacy 87.8; Estimated Glomerular Filt Rate > 60; Lipase 31 U/L (8-78); Potassium 4.7 mmol/L (3.3-5.1); Sodium 142 mmol/L (135-145); Total Protein 7.0 g/dL (6.5-8.0)
[2025-04-03 19:00] LABS: Hematocrit 45.5 % (42.0-52.0); Hemoglobin 15.0 g/dl (14.0-18.0); Imm Gran Abs Auto 0.01 X10*3/uL (0.00-0.03); Imm Gran Pct Auto 0.2 % (0.0-0.4); Lymphocytes Absolute Auto 2.1 X10*3/uL (1.2-4.9); Mean Corpuscular HGB Conc 33.0 g/dl (31.0-36.0); Mean Corpuscular Hemoglobin 30.3 pg (27.0-33.0); Mean Corpuscular Volume 91.9 fL (80.0-98.0); NRBC Abs Auto 0.000 X10*3/uL (0.0-0.012); NRBC Pct Auto 0.0 /100WBC (0.0-0.2); Platelet Count 268 X10*3/uL (160-400); Red Blood Count 4.95 X10*6/uL (4.60-5.80); White Blood Count 6.2 X10*3/uL (4.8-10.8)
[2025-04-03 19:03] LABS: Troponin-I High Sensitivity < 2.7 ng/L (<3.5-35.0)
[2025-04-03 19:31] VITALS: BP 115/70; PULSE 52; RESP 16; O2SAT 98
[2025-04-03] MEDS: Magnesium Hydrox/Alum Hydrox 30 ML ORAL.SUSP PO (19:39)
[2025-04-03 19:53] VITALS: BP 115/70; PULSE 52; RESP 16; TEMP 36.7; O2SAT 98
--- OUTSIDE RECORDS SUMMARY | 2025-04-03 20:27 | XMS_ITS | Clinical Summary ---
Author Organization [facility] Address [address] [place] [address] Care Team Providers Care Heavy Equipment Technician Name Role Phone Unavailable Primary Care Provider [...] Plan of Treatment Not on file Insurance [employer] Member Subscriber Plan / Payer (Ef fective 2018-Present) Name:Carlos Downing Relation to Subscriber:Self Name:Carlos Downing Payer ID:[id number] Type:[employer]ody Address: [facility] [address] [place] [address]
--- OUTSIDE RECORDS SUMMARY | 2025-04-03 20:27 | XMS_ITS | Encounter Summary ---
Author Organization [employer] Address [address] [place] [address] Care Team Providers Care Health And Wellness Instructor Name Role Phone Lori Patel MD Primary Care Provider [phone] Encounter Details Date Type Department Care Team ([facility] st Contact Info) Description 02/05/2023 Abstract [facility] [address] [place] [address] Nora Shaver Social History Tobacco Use Types [...] on filedocumented in this encounter Care Teams Health And Wellness Instructor Relationship Specialty Start Date End Date Lori Patel MD [address] [place] [address] PCP - General Family Medicine 06/17/20 documented as of this encounter
--- OUTSIDE RECORDS SUMMARY | 2025-04-03 20:27 | XMS_ITS | Encounter Summary ---
Author Organization [employer] Address [address] [place] [address] Care Team Providers Care Rn Hematology Name Role Phone Lori Patel MD Primary Care Provider [phone] Encounter Details Date Type Department Care Team ([facility] st Contact Info) Description 02/09/2023 Orders Only [facility] MEDICINE [address] [place] [address] Provider, MD Joleen Social History Tobacco Use [...] this encounter Results * COVID-19 ID NOW (Gingr) (03/18/2023 8:30 PM EDT) IDNOW SERIAL# [id number] [facility] COVID-19 TEST Negative Negative [facility] COVID-19 NOTE See Note [facility] Comment: Results are for the identification of SARS-CoV2 RNA. TheSARS-CoV2 RNA is generally detectable in respiratory samplesduring the acute phase of infection. Positive results areindicative of the presence of SARS-CoV-2 RNA; clinicalcorrelation with patient history and other diagnosticinformation is necessary to determine patient infectionstatus. Positive results do not rule out bacterial infectionor co- infection with other viruses.Testing facilities within the [place] and itsterritories are required to report [...] use by authorized laboratories.Testing performed on the [employer] ID NOW utilizing NAAT. 03/18/2023 8:30 PM EDT 03/18/2023 8:32 PM EDT [facility] Exter nal Provider LAB MOLECULAR DIAGNOSTICS ORDERABLES Final Result Performing Organization Address City/[facility]/ZIP Co de Phone Number [facility] [address] [place] [phone] * Lipase (03/18/2023 2:59 PM EDT) Pathologist [facility] Lipase 16 8 - 78 U/L [facility] 03/18/2023 2:59 PM EDT 03/18/2023 3:02 PM EDT Generic External Data Provider LAB BLOOD ORDERAB LES Final Result Performing Organization Address [facility]/ZIP Co de Phone Number [facility] [address] [place] [phone] * Comprehensive Metabolic Panel (03/18/2023 2:59 PM EDT) Sodium 138 135 - 145 mmol/L [facility] Potassium 4.7 3.3 - 5.1 mmol/L [facility] Chloride 102 96 - 108 mmol/L [facility] Carbon Dioxide 28 22 - 29 mmol/L [facility] Anion Gap 13 12 - 20 [facility] Urea Nitrogen (BUN) 9 9 - 16 mg/dL [facility] Creatinine, Serum 0.89 0.5 - 1.4 mg/dL [facility] Creatinine Clr Calc Pharmacy 91.5 [facility] Comment:eGFR (calculated fro m the MDRD study equation) and eCrCl(calculated from the Cockcroft-Gault equation) are based ondifferent parameters and may not yield comparable results.If eCrCl result is absurd, please check patient'sheight/weight. Estimated Glomerular Filt Rate >60 [facility] Comment:NOTE: For -Am erican individuals, multiply the result by 1.210.Chronic Kidney Disease: Estimated GFR < 60 mL/min/[id number] Kidney Disease: Estimated GFR < 15 mL/min/1.73m2 Glucose 99 60 - 115 mg/dL [facility] Calcium 9.9 8.4 - 10.2 mg/dL [facility] Bilirubin, Total 0.3 0.0 - 1.0 mg/dL [facility] Aspartate Amino Transferase 18 5 - 37 U/L [facility] Alanine Aminotransferase 12 0 - 40 U/L [facility] Total Protein 7.1 6.5 - 8.0 g/dL [facility] Albumin Level 4.0 3.5 - 5.0 g/dL [facility] Alkaline Phosphatase 70 39 - 117 U/L [facility] 03/18/2023 2:59 PM EDT 03/18/2023 3:02 PM EDT [facility] External Provider LAB BLO OD ORDERABLES Final Result [facility] [address] [place] [phone] * (ABNORMAL) CBC auto differential (03/18/2023 2:59 PM EDT) White Blood Count 6.2 4.8 - 10.8 X10*3/uL [facility] Red Blood Count 4.99 4.60 - 5.80 X10*6/uL [facility] Hemoglobin 15.1 14.0 - 18.0 g/dl [facility] Hematocrit 45.4 42.0 - 52.0 % [facility] Mean Corpuscular Volume 91.0 80.0 - 98.0 fL [facility] Mean Corpuscular Hemoglobin 30.3 27.0 - 33.0 pg [facility] Mean Corpuscular HGB Conc 33.3 31.0 - 36.0 g/dl [facility] Red Cell Distribution Width 14.2 11.0 - 16.0 % [facility] Platelet Count 247 160 - 400 X10*3/uL [facility] Mean Platelet Volume 10.0 9.4 - 12.4 fL [facility] Neutrophils Percent Auto 37.9(L) 45 - 73 % [facility] Imm Gran Pct Auto 0.2 0.0 - 0.4 % [facility] Lymphocytes Percent Auto 37.4 20 - 40 % [facility] Monocytes Percent Auto 9.8 2 - 11 % [facility] Eosinophils Percent Auto 14.4(H) 0 - 4 % [facility] Basophils Percent Auto 0.3 0 - 2 % [facility] NRBC Pct Auto 0.0 0.0 - 0.2 /100WBC [facility] Neutrophils Absolute Auto 2.4 2.0 - 8.3 x10*3/uL [facility] Imm Gran Abs Auto 0.01 0.00 - 0.03 X10*3/uL [facility] Lymphocytes Absolute Auto 2.3 1.2 - 4.9 X10*3/uL [facility] Monocytes Absolute Auto 0.6 0.1 - 1.2 X10*3/uL [facility] Eosinophils Absolute Auto 0.9(H) 0.0 - 0.4 X10*3/uL [facility] Basophils Absolute Auto 0.0 0.0 - 0.2 X10*3/uL [facility] NRBC Abs Auto 0.000 0.0 - 0.012 X10*3/uL [facility] 03/18/2023 2:59 PM EDT 03/18/2023 3:02 PM EDT us [facility] External Provider LAB BLO OD ORDERABLES Final Result [facility] [address] [place] [phone] * CT Abdomen Pelvis w/ Contrast (02/22/2023 11:27 PM EDT) Anatomical Region Laterality Modality Body, Pelvis, Abdomen Computed T omography 02/22/2023 11:2 7 PM EDT Narrative 02/22/2023 11:58 PM EDT [address] [address] [address] Scan Report Signed Patient: Carlos Downing MR#: [id number] : 1975 Acct:[id number] Age/Sex: 47 / M ADM Date: 02/22/23 Loc: .ED Attending Dr: Ordering Physician: Wan Acuna MD Date of Service: 02/22/23 Procedure(s): CT abdomen pelvis w IV con Accession Number(s): [id number] cc: Lori Patel; Wan Acuna MD EXAMINATION: [...] in OV> 02/22/23 2354 DD/ 2327 TD/TT: Color Coater: SS Procedure Note Donotuseinterpreter, Image - 02/22/[address] [place] [address] [address] Scan Report Signed Patient: Carlos Downing#: [id number] : 1975Acct:[id number] Age/Sex: 47 / MADM Date: 02/22/23 Loc: HO.ED Attending Dr: Ordering Physician: Wan Acuna MD Date of Service: 02/22/23 Procedure(s): CT abdomen pelvis w IV con Accession Number(s): [id number] cc: Lori Patel; Wan Acuna MD EXAMINATION: [...] MD in OV> 02/22/23 2354 DD/ TD/TT: Color Coater: SS [facility] External Provider IMG CT PROCEDURES Final Result * Urinalysis w/reflex microscopic (02/22/2023 10:27 PM EDT) Color Urine Yellow [facility] Appearance Urine Turbid [facility] PH 7.5 5.0 - 9.0 [facility] Glucose Urine UA Negative Negative mg/dL [facility] Urine Blood Negative Negative [facility] Specific Sublimity - Urine 1.020 1.005 - 1.025 [facility] Urine Protein Negative Neg-Trace mg/dL [facility] Urine Ketones Negative Negative mg/dL [facility] Nitrite Urine Negative Negative [facility] Leukocyte Esterase Urine Negative Negative [facility] 02/22/2023 10:2 7 PM EDT 02/22/2023 10:30 PM EDT Narrative [facility] - 02/22/2023 10:37 PM EDT Urine, Clean Catch [facility] External Provider LAB URI NE ORDERABLES Final Result [facility] [address] [place] [phone] * (ABNORMAL) CBC auto differential (02/22/2023 10:27 PM EDT) White Blood Count 7.4 4.8 - 10.8 X10*3/uL [facility] Red Blood Count 4.91 4.60 - 5.80 X10*6/uL [facility] Hemoglobin 14.8 14.0 - 18.0 g/dl [facility] Hematocrit 45.2 42.0 - 52.0 % [facility] Mean Corpuscular Volume 92.1 80.0 - 98.0 fL [facility] Mean Corpuscular Hemoglobin 30.1 27.0 - 33.0 pg [facility] Mean Corpuscular HGB Conc 32.7 31.0 - 36.0 g/dl [facility] Red Cell Distribution Width 13.9 11.0 - 16.0 % [facility] Platelet Count 275 160 - 400 X10*3/uL [facility] Mean Platelet Volume 9.9 9.4 - 12.4 fL [facility] Neutrophils Percent Auto 42.9(L) 45 - 73 % [facility] Imm Gran Pct Auto 0.3 0.0 - 0.4 % [facility] Lymphocytes Percent Auto 33.6 20 - 40 % [facility] Monocytes Percent Auto 8.7 2 - 11 % [facility] Eosinophils Percent Auto 14.2(H) 0 - 4 % [facility] Basophils Percent Auto 0.3 0 - 2 % [facility] NRBC Pct Auto 0.0 0.0 - 0.2 /100WBC [facility] Neutrophils Absolute Auto 3.2 2.0 - 8.3 x10*3/uL [facility] Imm Gran Abs Auto 0.02 0.00 - 0.03 X10*3/uL [facility] Lymphocytes Absolute Auto 2.5 1.2 - 4.9 X10*3/uL [facility] Monocytes Absolute Auto 0.6 0.1 - 1.2 X10*3/uL [facility] Eosinophils Absolute Auto 1.1(H) 0.0 - 0.4 X10*3/uL [facility] Basophils Absolute Auto 0.0 0.0 - 0.2 X10*3/uL [facility] NRBC Abs Auto 0.000 0.0 - 0.012 X10*3/uL [facility] 02/22/2023 10:2 7 PM EDT 02/22/2023 10:30 PM EDT [facility] External Provider LAB BLO OD ORDERABLES Final Result Performing Organization Address [facility] Co de Phone Number [facility] [address] [place] [phone] * SARS-CoV-2 RNA, Influenza A/B, and RSV RNA, Ql NAAT (02/22/2023 7:17 PM EDT) Influenza A PCR NEGATIVE Negative [facility] Influenza B PCR NEGATIVE Negative [facility] Resp Syncy Virus RNA Qual PCR NEGATIVE Negative [facility] SARS COV2 PCR NEGATIVE Negative [facility] Comment:All test results mus t [...] use by authorized laboratories.Testing performed on the [employer] GeneXpert utilizingreal-time RT-PCR.All SARS CoV2 and positive influenza A/B results arereported to [facility]. 02/22/2023 7:17 PM EDT 02/22/2023 7:20 PM EDT [facility] Exter nal Provider LAB MICROBIOLOGY - GENERAL ORDERABLES Final Result Performing Organization Address [facility]/ZIP Co de Phone Number [facility] [address] [place] [phone] * Lipase (02/22/2023 7:17 PM EDT) Lipase 22 8 - 78 U/L [facility] 02/22/2023 7:17 PM EDT 02/22/2023 7:20 PM EDT us Generic External Data Provider LAB BLOOD ORDERAB LES Final Result Performing Organization Address City/[facility]/ZIP Co de Phone Number [facility] [address] [place] [phone] * Magnesium (02/22/2023 7:17 PM EDT) Pathologist [facility] Magnesium 2.4 1.6 - 2.6 mg/dL [facility] 02/22/2023 7:17 PM EDT 02/22/2023 7:20 PM EDT Generic External Data Provider LAB BLOOD ORDERAB LES Final Result Performing Organization Address [facility] Co de Phone Number [facility] [address] [place] [phone] * (ABNORMAL) Basic Metabolic Panel (02/22/2023 7:17 PM EDT) Pathologist [facility] Sodium 138 135 - 145 mmol/L [facility] Potassium 4.8 3.3 - 5.1 mmol/L [facility] Chloride 106 96 - 108 mmol/L [facility] Carbon Dioxide 28 22 - 29 mmol/L [facility] Anion Gap 9(L) 12 - 20 [facility] Urea Nitrogen (BUN) 12 9 - 16 mg/dL [facility] Creatinine, Serum 1.00 0.5 - 1.4 mg/dL [facility] Creatinine Clr Calc Pharmacy 90.3 [facility] Comment:eGFR (calculated fro m the MDRD study equation) and eCrCl(calculated from the Cockcroft-Gault equation) are based ondifferent parameters and may not yield comparable results.If eCrCl result is absurd, please check patient'sheight/weight. Estimated Glomerular Filt Rate >60 [facility] Comment:NOTE: For -[place] er[place] individuals, multiply the result by 1.210.Chronic Kidney Disease: Estimated GFR < 60 mL/min/[id number] Kidney Disease: Estimated GFR < 15 mL/min/1.73m2 Glucose 98 60 - 115 mg/dL [facility] Calcium 9.4 8.4 - 10.2 mg/dL [facility] 02/22/2023 7:17 PM EDT 02/22/2023 7:20 PM EDT Generic External Data Provider LAB BLOOD ORDERAB LES Final Result Performing Organization Address [facility] Co de Phone Number [facility] [address] [place] [phone] * Hepatic Function Panel (02/22/2023 7:17 PM EDT) Pathologist [facility] Bilirubin, Total 0.2 0.0 - 1.0 mg/dL [facility] Bilirubin, Direct <0.2 0.0 - 0.5 mg/dL [facility] Aspartate Amino Transferase 17 5 - 37 U/L [facility] Alanine Aminotransferase 11 0 - 40 U/L [facility] Total Protein 7.0 6.5 - 8.0 g/dL [facility] Albumin Level 3.9 3.5 - 5.0 g/dL [facility] Alkaline Phosphatase 65 39 - 117 U/L [facility] 02/22/2023 7:17 PM EDT 02/22/2023 7:20 PM EDT [facility] External Provider LAB BLO OD ORDERABLES Final Result Performing Organization Address [facility] Co de Phone Number [facility] [address] [place] [phone] * (ABNORMAL) CBC auto differential (02/22/2023 7:17 PM EDT) Pathologist [facility] White Blood Count 7.3 4.8 - 10.8 X10*3/uL [facility] Red Blood Count 4.75 4.60 - 5.80 X10*6/uL [facility] Hemoglobin 14.5 14.0 - 18.0 g/dl [facility] Hematocrit 43.9 42.0 - 52.0 % [facility] Mean Corpuscular Volume 92.4 80.0 - 98.0 fL [facility] Mean Corpuscular Hemoglobin 30.5 27.0 - 33.0 pg [facility] Mean Corpuscular HGB Conc 33.0 31.0 - 36.0 g/dl [facility] Red Cell Distribution Width 13.8 11.0 - 16.0 % [facility] Platelet Count 276 160 - 400 X10*3/uL [facility] Mean Platelet Volume 9.7 9.4 - 12.4 fL [facility] Neutrophils Percent Auto 38.6(L) 45 - 73 % [facility] Imm Gran Pct Auto 0.1 0.0 - 0.4 % [facility] Lymphocytes Percent Auto 38.2 20 - 40 % [facility] Monocytes Percent Auto 8.1 2 - 11 % [facility] Eosinophils Percent Auto 14.9(H) 0 - 4 % [facility] Basophils Percent Auto 0.1 0 - 2 % [facility] NRBC Pct Auto 0.0 0.0 - 0.2 /100WBC [facility] Neutrophils Absolute Auto 2.8 2.0 - 8.3 x10*3/uL [facility] Imm Gran Abs Auto 0.01 0.00 - 0.03 X10*3/uL [facility] Lymphocytes Absolute Auto 2.8 1.2 - 4.9 X10*3/uL [facility] Monocytes Absolute Auto 0.6 0.1 - 1.2 X10*3/uL [facility] Eosinophils Absolute Auto 1.1(H) 0.0 - 0.4 X10*3/uL [facility] Basophils Absolute Auto 0.0 0.0 - 0.2 X10*3/uL [facility] NRBC Abs Auto 0.000 0.0 - 0.012 X10*3/uL [facility] 02/22/2023 7:17 PM EDT 02/22/2023 7:20 PM EDT [facility] External Provider LAB BLO OD ORDERABLES Final Result [facility] [address] [place] [phone] * Hm Colonoscopy (08/13/2021) Historical Provider HEALTH MAINTENANCE Final Result documented in this encounter Visit Diagnoses Not on filedocumented in this encounter Care Teams Rn Hematology Relationship Specialty Start Date End Date Lori Patel MD [address] [place] [address] PCP - General Family Medicine 06/17/20 documented as of this encounter
--- OUTSIDE RECORDS SUMMARY | 2025-04-03 20:27 | XMS_ITS | Clinical Summary ---
Author Organization [employer] Address [address] [facility] [address] [place] [address] Care Team Providers Care End Matcher Name Role Phone Lori Patel MD Primary Care Provider [phone] Allergies Active Allergy Reactions Criticality Noted Date Comments Aspirin Unknown 05/19/2018 Medications famotidine (Pepcid) 20 MG tablet Take 1 tablet (20 mg) by mouth 2 times daily. 60 tablet 11 024 2024 Active loratadine (Claritin) 10 MG tabletIndications :Acute maxillary sinusitis, recurrence not specified TAKE 1 TABLET BY MOUTH EVERY DAY 90 tablet 3 025 Active valACYclovir (Valtrex) 1 g tabletIndications :History of herpes zoster Take 1 tablet by mouth every 6 (six) hours during the day. 025 Active omeprazole (PriLOSEC) [address] capsuleIndication s:Epigastric pain TAKE 1 CAPSULE BY MOUTH TWICE A DAY FOR 2 WEEKS Oral; Duration: 14 Active ondansetron ODT (Zofran-ODT) 4 MG disintegrating tabletIndications :Epigastric pain DISSOLVE 1 TABLET BY MOUTH EVERY 8 HOURS NEEDED FOR NAUSEA AND VOMITING Oral; Duration: 7 Active sucralfate (Carafate) 1 GM/10ML suspensionIndicat ions:Epigastric pain TAKE 10MLS BY MOUTH TWICE DAILY FOR 7 DAYS Oral; Duration: 7 Active fluticasone (Flonase Allergy Relief) 50 MCG/ACT nasal sprayIndications: Chronic maxillary sinusitis Administer 1 spray into each nostril Once [...] NEEDED FOR SHORTNESS OF BREATH OR WHEEZING 024 2024 Discontinued(T herapy completed) Active Problems Problem Noted Date Diagnosed Date History of herpes zoster 03/23/2025 Chronic maxillary sinusitis 03/23/2025 Normal oral exam 03/22/2025 Dental calculus 03/22/2025 Epigastric pain 03/21/2025 Assessment & Plan (03/23/2025 9:54 AM EDT): Hold PI, test for H pylori 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 Continue GERD diet Impacted third molar tooth 06/05/2024 Generalized abdominal [...] L hand FH: colon cancer 04/14/2023 04/14/2023 halfway (current) use of n on-steroidal anti-inflammatories (nsaid) 04/14/2023 04/14/2023 Family history of malignant neoplasm of gastrointestinal tract 09/23/2022 Shoulder pain 04/30/2021 04/14/2023 Prediabetes 05/19/2018 Encounters Date Type Department Care Team Description 03/22/2025 11:00 AM EDT Office Visit [facility] [address] [place] [address] Merna Hobbs Impacted third molar tooth (Primary Dx); Normal oral exam; Dental calculus 03/21/2025 3:00 PM EDT Office Visit [facility] MEDIC[facility] [address] [place] [address] Lori Patel MD Epigastric pain (Primary Dx); Dietary counseling; Exercise counseling; Overweight; Chronic maxillary sinusitis; History of herpes zoster; Bilateral carpal tunnel syndrome 03/21/2025 Travel 03/20/2025 Travel 03/14/2025 Travel 01/02/2025 Orders Only [facility] External Provider, [facility] from Last 3 Months Immunizations Immunization [...] history exists Depression Screening 04/28/2025 04/28/2024, 04/28/20 24 Dental X-Ray: Bitewings 06/06/2025 06/05/20 24, 03/13/2022, 10/31/2020 Dental Oral Exam 09/21/2025 03/22/2025, , 03/13/2022, Additional history exists Dental Prophylaxis 09/21/2025 03/22/2025, 1 , 03/13/2022, Additional history exists Disability Screening 03/14/2026 03/14/2025 Tobacco Screening 03/22/2026 03/22/2025 Lipid Panel 07/25/2026 07/25/2021, 06/25/2020 Colonoscopy 08/13/2026 08/13/2021 Colorectal Cancer Screening 08/13/2026 Dental X-Ray: Full Mouth 06/06/2027 06/05/2024, 10/06 DTaP/Tdap/Td Vaccines (3 - Td or Tdap) [...] Procedure Name Priority Date/Time Associated Diagnosis Comments HIGH SENSITIVITY TROPONIN I Routine 04/03/2025 6:28 PM EDT CBC WITH AUTO DIFFERENTIAL Routine 04/03/2025 6:28 PM EDT LIPASE Routine 04/03/2025 6:28 PM EDT COMPREHENSIVE METABOLIC PANEL Routine 04/03/2025 6:28 PM EDT APTT Routine 04/03/2025 6:28 PM EDT PROTHROMBIN TIME-INR Routine 04/03/2025 6:28 PM EDT HELICOBACTER PYLORI AG, EIA, STOOL Routine 03/22/2025 7:50 PM EDT Epigastric pain PERIODIC ORAL EVALUATION - ESTABLISHED PATIENT Routine [...] Recently Relevant to Health Maintenance Results * High Sensitivity Troponin I (04/03/2025 6:28 PM EDT) [facility] TROPONIN I HIGH SENSITIVITY <2.7 <3.5 - 35.0 ng/L [facility] Comment:The Gomez high sens itivity Troponin-I results should beused in conjunction with other diagnostic information suchas ECG, clinical observations and information, and patientsymptoms to aid in the diagnosis of [place]. 04/03/2025 6:28 PM EDT 04/03/2025 6:39 PM EDT us Generic External Data Provider LAB BLOOD ORDERAB LES Final Result [facility] [address] [place] [phone] * (ABNORMAL) CBC auto differential (04/03/2025 6:28 PM EDT) [facility] White Blood Count 6.2 4.8 - 10.8 X10*3/uL [facility] Red Blood Count 4.95 4.60 - 5.80 X10*6/uL [facility] Hemoglobin 15.0 14.0 - 18.0 g/dl [facility] Hematocrit 45.5 42.0 - 52.0 % [facility] Mean Corpuscular Volume 91.9 80.0 - 98.0 fL [facility] Mean Corpuscular Hemoglobin 30.3 27.0 - 33.0 pg [facility] Mean Corpuscular HGB Conc 33.0 31.0 - 36.0 g/dl [facility] Red Cell Distribution Width 14.4 11.0 - 16.0 % [facility] Platelet Count 268 160 - 400 X10*3/uL [facility] Mean Platelet Volume 9.4 9.4 - 12.4 fL [facility] Neutrophils Percent Auto 42.5(L) 45 - 73 % [facility] Imm Gran Pct Auto 0.2 0.0 - 0.4 % [facility] Lymphocytes Percent Auto 34.2 20 - 40 % [facility] Monocytes Percent Auto 10.0 2 - 11 % [facility] Eosinophils Percent Auto 12.8(H) 0 - 4 % [facility] Basophils Percent Auto 0.3 0 - 2 % [facility] NRBC Pct Auto 0.0 0.0 - 0.2 /100WBC [facility] Neutrophils Absolute Auto 2.6 2.0 - 8.3 x10*3/uL [facility] Imm Gran Abs Auto 0.01 0.00 - 0.03 X10*3/uL [facility] Lymphocytes Absolute Auto 2.1 1.2 - 4.9 X10*3/uL [facility] Monocytes Absolute Auto 0.6 0.1 - 1.2 X10*3/uL [facility] Eosinophils Absolute Auto 0.8(H) 0.0 - 0.4 X10*3/uL [facility] Basophils Absolute Auto 0.0 0.0 - 0.2 X10*3/uL [facility] NRBC Abs Auto 0.000 0.0 - 0.012 X10*3/uL [facility] 04/03/2025 6:28 PM EDT 04/03/2025 6:39 PM EDT Generic External Data Provider LAB BLOOD ORDERAB LES Final Result Performing Organization Address [facility] Co de Phone Number [facility] [address] [place] [phone] * Partial Thromboplastin Time, Activated (APTT) (04/03/2025 6:28 PM EDT) Partial Thromboplastin Time 32.5 26.7 - 34.1 SEC [facility] 04/03/2025 6:28 PM EDT 04/03/2025 6:39 PM EDT Generic External Data Provider LAB BLOOD ORDERAB LES Final Result Performing Organization Address [facility] Co de Phone Number [facility] [address] [place] [phone] * (ABNORMAL) Prothrombin Time-INR (04/03/2025 6:28 PM EDT) Prothrombin Time 10.8(L) 10.9 - 12.4 SEC [facility] INTERNATIONAL NORM RATIO 0.9 0.9 - 1.1 [facility] Comment:INTERNATIONAL NORMAL IZED RATIO (INR) REFERENCE RANGES Reference RangeFor patients not on anticoagulant therapy: 0.9 - 1.1INR ranges for oral anticoagulanttherapy:For prevention and treatment of venous thrombosis and pulmonary embolism: 2.0 - 3.0For acute myocardial infarction with aspirin therapy: 2.0 - 3.0For acute myocardial infarction without aspirin therapy: 3.0 - 4.0For patients with mechanical prosthetic heart valves: 2.5 - 3.5 04/03/2025 6:28 PM EDT 04/03/2025 6:39 PM EDT us Generic External Data Provider LAB BLOOD ORDERAB LES Final Result Performing Organization Address City/[facility]/ZIP Co de Phone Number [facility] [address] [place] [phone] * Lipase (04/03/2025 6:28 PM EDT) Lipase 31 8 - 78 U/L [facility] 04/03/2025 6:28 PM EDT 04/03/2025 6:39 PM EDT us Generic External Data Provider LAB BLOOD ORDERAB LES Final Result Performing Organization Address [facility] Co de Phone Number [facility] [address] [place] [address] [phone] * (ABNORMAL) Comprehensive Metabolic Panel (04/03/2025 6:28 PM EDT) Sodium 142 135 - 145 mmol/L [facility] Potassium 4.7 3.3 - 5.1 mmol/L [facility] Chloride 108 96 - 108 mmol/L [facility] Carbon Dioxide 30(H) 22 - 29 mmol/L [facility] Anion Gap 9(L) 12 - 20 [facility] Urea Nitrogen (BUN) 15 9 - 16 mg/dL [facility] Creatinine, Serum 0.94 0.5 - 1.4 mg/dL [facility] Creatinine Clr Calc Pharmacy 87.8 [facility] Comment:eGFR (calculated fro m the MDRD study equation) and eCrCl(calculated from the Cockcroft-Gault equation) are based ondifferent parameters and may not yield comparable results.If eCrCl result is absurd, please check patient'sheight/weight. Estimated Glomerular Filt Rate >60 [facility] Comment:Chronic Kidney Disea se: Estimated GFR < 60 mL/min/1.63d4Cbhlbz Kidney Disease: Estimated GFR < 15 mL/min/1.73m2 Glucose 99 60 - 115 mg/dL [facility] Calcium 8.8 8.4 - 10.2 mg/dL [facility] Bilirubin, Total 0.3 0.0 - 1.0 mg/dL [facility] Aspartate Amino Transferase 25 5 - 37 U/L [facility] Alanine Aminotransferase 29 0 - 40 U/L [facility] Total Protein 7.0 6.5 - 8.0 g/dL [facility] Albumin Level 4.2 3.5 - 5.0 g/dL [facility] Alkaline Phosphatase 78 39 - 117 U/L [facility] 04/03/2025 6:28 PM EDT 04/03/2025 6:39 PM EDT us Generic External Data Provider LAB BLOOD ORDERAB LES Final Result Performing Organization Address [facility]/ZIP Co de Phone Number [facility] [address] [place] [phone] * Helicobacter pylori??Antigen, EIA, Stool (03/22/2025 7:50 PM EDT) H pylori Ag Stool SEE NOTE [facility] Comment:HELICOBACTER PYLORI AG, EIA, STOOL Micro Number: [id number] Test Status: Final Specimen Source: Stool Specimen Quality: Adequate H.pylori Ag: Not Detected Antimicrobials, proton pump inhibitors, and bismuth preparations inhibit H. pylori and ingestion up to two weeks prior to testing may cause false negative results. If clinically indicated the test should be repeated on a new specimen obtained two weeks after discontinuing treatment. Reference Range: Not DetectedTHIS TEST WAS PERFORMED AT:[employer] [place] [phone] RAIN MD Stool Rectal contents / Unknown 03/22/2025 7:50 PM EDT 03/23/2025 11:16 AM EDT us Lori Patel MD LAB BODY FLUIDS AND STOOLS ORD ERABLES Final Result Performing Organization Address [facility] Co de Phone Number [facility] [address] [place] [phone] [phone] * CT Head w/o Contrast (01/02/2025 5:54 PM EDT) Anatomical Region Laterality Modality Head, Neck Computed Tomogra phy 01/02/2025 5:54 PM EDT Narrative 01/02/2025 5:55 PM EDT [address] [address] [address] Scan Report Signed Patient: Carlos Downing MR#: [id number] : 1975 Acct:[id number] Age/Sex: 49 / M ADM Date: 01/02/25 Loc: HO.ED Attending Dr: Ordering Physician: Marcie Rodríguez CNP Date of Service: 01/02/25 Procedure(s): CT head/brain wo IV con Accession Number(s): [id number] cc: Marcie Rodríguez CNP; Lori Patel Report Number: [id number]: Total DLP = 593.00 mGy-cm CLINICAL HISTORY: [...] in OV> 01/02/251754 DD/ 53 TD/TT: 01/02/251753 Real Estate Investor: Procedure Note Donotuseinterpreter, Image - 01/02/[address] [address] [address] Scan Report Signed Patient: Carlos DowningMR#: [id number] : 1975Acct:[id number] Age/Sex: 49 / MADM Date: 01/02/25 Loc: HO.ED Attending Dr: Ordering Physician: Marcie Rodríguez CNP Date of Service: 01/02/25 Procedure(s): CT head/brain wo IV con Accession Number(s): [id number] cc: Marcie Rodríguez CNP; Lori Patel Report Number: [id number]: Total DLP = 593.00 mGy-cm CLINICAL HISTORY: [...] in OV> 01/02/251754 DD/ 53 TD/TT: 01/02/251753 Real Estate Investor: [facility] External Provider IMG CT PROCEDURES Final Result * Hm Colonoscopy (08/13/2021) Historical Provider HEALTH MAINTENANCE Final Result * (ABNORMAL) HEMOGLOBIN A1c (07/25/2021 3:24 PM EST) Hemoglobin A1c 5.7(H) <5.7 % of total Hgb [facility] Comment: For someone without known [...] MD LAB BLOOD ORDERABLES Final Res ult Performing Organization Address [facility] de Phone Number [facility] [address] [place] [address], * (ABNORMAL) LIPID PANEL, STANDARD (07/25/2021 3:24 [...] factors. LDL-C is now calculated using the Chadwick-Kianna calculation, which is a validated novel method providing better accuracy than the Friedewald equation in the estimation of LDL-C. Chadwick FLORES et al. RACHEAL. 2013;310(19): 4334-8926 (http://education.[employer].Spotwise/faq/XUJ653) Non-HDL Cholesterol 152(H) <130 mg/dL (calc) [facility] Comment: For patients with diabetes plus 1 major ASCVD risk factor, treating to a non-HDL-C goal of <100 mg/dL (LDL-C of <70 mg/dL) is considered a therapeutic option. Triglycerides 108 <150 mg/dL [facility] 07/25/2021 3:24 PM EST Lori Patel MD LAB BLOOD ORDERABLES Final Res ult Performing Organization Address [facility] de Phone Number [facility] [address] [place] [address], * HEPATITIS C AB W/REFL TO HCV RNA, QN, PCR (06/25/2020 1:37 PM EST) HEPATITIS C ANTIBODY NON-REACT [place] NON-REACT [place]IA[place] [facility] INDEX 0.02 <1.00 [facility] Comment: HCV antibody was non-reactive. There is no laboratory evidence of HCV infection. In most cases, no further action is required. However, if recent HCV exposure is suspected, a test for HCV RNA (test code 88628) is suggested. For additional information please refer to http://education.[employer].Spotwise/faq/RFW31h3 (This link is being provided for informational/ educational purposes only.) 06/25/2020 1:37 PM EST us Lori Patel MD HISTORICAL/NON ORDERABLE LABS Final Result Performing Organization Address City/State/[facility] Co de Phone Number [facility] [address] from Last 3 Months or Most Recently Relevant to Health Maintenance Insurance [facility] C3 HSN F[facility] MEDICAID STAND ADULT Care Teams End Matcher Relationship Specialty Start Date End Date Lori Patel MD [address] [place] [address] [place] [address] PCP - General Family Medicine 06/17/20
--- OUTSIDE RECORDS SUMMARY | 2025-04-03 20:27 | XMS_ITS | Encounter Summary ---
Author Organization [employer] Address [address] [facility] [address] [place] [address] Care Team Providers Care Edge Baster Name Role Phone Lori Patel MD Primary Care Provider [phone] Encounter Details Date Type Department Care Team [...] on filedocumented in this encounter Care Teams Edge Baster Relationship Specialty Start Date End Date Lori Patel MD [address] [place] [phone] PCP - General Family Medicine 06/17/20 documented as of this encounter
--- OUTSIDE RECORDS SUMMARY | 2025-04-03 20:27 | XMS_ITS | Clinical Summary ---
Author Organization [facility] Address [address] [facility] [address] [place] [phone] Phone Care Team Providers Care Senior Mortgage Loan Processor Name Role Phone Pcp, Unknown Primary Care [...] ACO C3 ACO C3 ACO Care Teams Senior Mortgage Loan Processor Relationship Specialty Start Date End Date Pcp, Unknown PCP - General 04/20/24 Additional Source Comments The information contained in this document represents components of the legal health record. It is not the complete legal health record.[facility]
--- OUTSIDE RECORDS SUMMARY | 2025-04-03 20:27 | XMS_ITS | Patient Health Record ---
Author Organization [facility] Address [address] [place] [phone] Care Team Providers Care Wood Heel Flap Rubber Name Role Phone Lori Patel M.D. 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) use of non-steroidal anti-inflammat ories (NSAID) (Z79.1) Active confirmed Problem Family history of malignant neoplasm of gastrointestinal tract (639447635) FH: colon cancer (Z80.0) Active confirmed Problem Nausea and vomiting (66918836) Nausea and vomiting, unspecified vomiting type (R11.2) Active confirmed Plan Of Treatment Future Test Test Name Order Date COLONOSCOPY 08/04/2021 UPPER GI ENDOSCOPY 03/29/2023 Insurance Providers Payer Name Payer Address Payer Phone Subscriber Number Group Number Insured Name Patient Relationship to Insured Coverage Start Date Coverage End Date [employer]ICA[employer] [facility] [employer] [facility] [address] MDANGELIQUE GAINES [phone] [id number] DARYL BILL Self - patient is the insured Medical (General) History Medical History History ICD Code Left shoulder pain Onychomycosis Colonoscopy 08/26, normal, five-year foll owup Surgical History Surgery Date(Month/Year) carpal tunnel
--- OUTSIDE RECORDS SUMMARY | 2025-04-03 20:27 | XMS_ITS | Encounter Summary ---
Author Organization [employer] Address [address] [facility] [address] [place] [address] Care Team Providers Care Special Forces Communications Sergeant Name Role Phone Lori Patel MD Primary Care Provider [phone] Encounter Details Date Type Department Care Team [...] on filedocumented in this encounter Care Teams Special Forces Communications Sergeant Relationship Specialty Start Date End Date Lori Patel MD [address] [place] [phone] PCP - General Family Medicine 06/17/20 documented as of this encounter
== END 2025-04-03 19:57 | disposition home or self-care (01) ==
PROVIDERS: Physician Assistant; Emergency Provider Emergency Medicine; PCP General Practice
DX: R10.13 Epigastric pain (principal); R11.0 Nausea; R00.1 Bradycardia, unspecified; R10.9 Unspecified abdominal pain; Z71.3 Dietary counseling and surveillance
CPT/HCPCS: 36415; 80053; 83690; 84484; 85025; 85610; 85730; 93005; 96374; 99284; J2470

== ENCOUNTER → 2025-04-03 18:06 | Outpatient (BNV) | payer MEDICAID, SELFPAY | PROVIDERS: Emergency Provider Emergency Medicine; PCP General Practice; Visit Provider Internal Medicine | DX: R00.1 Bradycardia, unspecified (principal) | CPT/HCPCS: 93010 ==